=== PATIENT | male | born 1950 | race Caucasian/White ===

== ENCOUNTER 2017-04-16 06:54 | Inpatient (IN) ==
--- NOTE | 2017-04-16 07:16 | Anesthesia Evaluation PreOp ---
Date of Encounter: 04/16/17 Time of Encounter: 07:12 - Past History Planned Operation: Right Fem-Pop Bypass Graft Cardiac History: HTN, Hyperlipidemia, Other (DVT Hx, PVD, PAD) Pulmonary History: Smoker, Pack/yr (2 ppd x 53 years), COPD, Other (Hx PE) RECORD PRESSMAN History: Denies Any Significant HX Other Medical History: GERD, Other (Stopped blood thinners 04/15/2017) Anesthesia History: No Prior Anesthetic Complications, Past Anesthesia ( Multiple Peripheral vascular surgeries) Alcohol Use: none Drug use: none Medications and Allergies Aspirin 325 mg PO DAILY #30 tablet 12/16/15 [Rx] HYDROcodone/Acet 5/325 mg [[place] 5-325 mg] 1 tab PO Q4HR PRN #30 tablet [Rx] Metoprolol [Lopressor] 50 mg PO BID tablet 12/16/15 [Rx] Ciprofloxacin [Cipro] 500 mg PO BID #14 tablet 04/10/17 [Rx] Allergies bee venom protein (honey bee) Allergy (Verified 04/10/17 16:48) Swelling of Lip/Tongue/Throat - Meds/Allergy Pre-op Review Medications Reviewed: Yes Allergies Reviewed: Yes Beta Blockers on Current Med List: Yes If Beta Blockers taken, Date/Time (Last Dose taken): 19:00 04/15/2017 Anesthesia Results - Labs Laboratory Tests 04/10/17 04/10/17 04/10/17 17:47 17:47 17:47 WBC 7.4 Hgb 16.1 Hct 48.4 Plt Count 139 L INR 1.2 Sodium 139 Potassium 4.0 Chloride 101 Carbon Dioxide 30 H BUN 18 Creatinine 0.83 Glucose 111 H - Imaging EKG: image reviewed (SR with occ PVC's) Anesthesia Exam Height: 5'7'' Weight: 196# NPO (# of Hours): > 8 hrs Pain Scale: 0 Pain Scale Used: Numeric (1 - 10) - HEENT Pupil (Motor): Pupils equal, EOMI Mallampati: III Teeth: Poor dentition Oral Opening: Greater than 3 - RECORD PRESSMAN LOC: Oriented RECORD PRESSMAN Motor: Normal RUE, Normal LUE, Normal RLE, Normal LLE, Normal Face RECORD PRESSMAN Sensory: Normal: RUE, LUE, RLE, LLE, Face - Cardiac Rhythm: Regular Murmur: None JVD: No Carotid Bruit: No - Pulmonary Breath Sounds: bilateral Clear Respiratory Effort: Symmetrical Anesthesia Assess/Plan ASA Score: 3 Modified [place] Scale for Level of Consciousness: Cooperative, oriented, and tranquil Anesthetic Plan: General Autologous Blood: Yes Monitoring Plan: Standard Monitors, A-Line Recovery Plan: PACU
[2017-04-16] MEDS ORDERED: *HR* Succinylcholine 200 MG/10 ML VIAL IVP ONE (07:39)
[2017-04-16] MEDS ORDERED: Ondansetron 4 MG/2 ML VIAL ONE (07:39)
[2017-04-16] MEDS ORDERED: Dexamethasone 4 MG/ML VIAL ONE (07:39)
[2017-04-16] MEDS ORDERED: *HR* FentaNYL (PF) 100 MCG/2 ML VIAL ONE (07:39)
[2017-04-16] MEDS ORDERED: *HR* Rocuronium Bromide 50 MG/5 ML VIAL ONE (07:39)
[2017-04-16] MEDS ORDERED: Ketamine *HR* 500 MG/10 ML MDV ONE (07:42)
[2017-04-16] MEDS ORDERED: Lidocaine -MPF 2% 2 ML VIAL ONE ×2 (07:43→12:17)
[2017-04-16] MEDS ORDERED: *HR* Phenylephrine 10 MG/ML VIAL ONE (07:43)
--- NOTE | 2017-04-16 07:49 | History & Physical Report ---
Date of Encounter: 04/16/17 Time of Encounter: 07:30 24 Hour HP Update - Instructions Instructions: If the History and Physical is less than 30 days old and was completed prior to A.M. admission and or procedure and has NOT been updated on calendar day of procedure please complete this update prior to performing procedure. - Update Patient reports changes in Medical Condition: No Changes in examination, assessment, or condition: No Changes in Medication: No Preop tests/diagnostics Reviewed: Yes Surgery Remains Indicated: Yes Consent for Planned Operative Procedure(s) Verified: Yes - Pre-Operative Checklist Preoperative Checklist Indicated: Yes Prophylactic Antibiotic Ordered: Yes (VNACOMYCIN DUE TO MRSA RISK) Home Medications Include Beta Tari: Yes Beta Tari Taken Today (Day of Surgery): Yes Beta Tari Taken Yesterday (Day Prior to Surgery): Yes Is VTE Prophylaxis Indicated?: Yes
[2017-04-16] MEDS ORDERED: Albumin Human 5% 25.0 GM/500 ML VIAL ONE (08:15)
[2017-04-16] MEDS ORDERED: CeFAZolin Pre 2,000 MG/100 ML 2,000 MG/100 ML BAG IVPB ONE (08:16)
[2017-04-16] MEDS ORDERED: Vancomycin 1,250 MG in D5% in Water 250 ML IVPB ONE ×2 (08:16→08:25)
[2017-04-16] MEDS ORDERED: Heparin 1,000 UNITS/500 mL NS 500 ML ONE (08:16)
[2017-04-16] MEDS ORDERED: Albuterol 2.5 MG/3 ML NEBULIZER IH ONE (08:18)
[2017-04-16] MEDS ORDERED: *HR* Etomidate 40 MG/20 ML VIAL IVP ONE (08:19)
[2017-04-16] MEDS ORDERED: Heparin 1,000 UNITS/500 mL NS 1,000 ML ONE (08:26)
[2017-04-16] MEDS ORDERED: Ringers Solution, Lactated 1,000 ML IVC SCH (08:30)
[2017-04-16] MEDS ORDERED: EPHEDrine 50 MG/ML VIAL ONE (08:46)
[2017-04-16] MEDS ORDERED: Lacri-Lube 3.5 GM TUBE ONE (09:20)
[2017-04-16] MEDS ORDERED: *HR* Midazolam HCl 2 MG/2 ML VIAL ONE (09:39)
[2017-04-16] MEDS ORDERED: *HR* Heparin 5,000 UNIT/ML VIAL ONE ×2 (10:17)
[2017-04-16] MEDS ORDERED: *HR* HYDROmorphone (PF) 1 MG/ML SYRINGE IVP PRN (10:33)
[2017-04-16] MEDS ORDERED: *HR* Morphine 2 MG/ML SYRINGE IVP PRN ×2 (10:33→15:35)
[2017-04-16] MEDS ORDERED: Ondansetron 4 MG/2 ML VIAL IVP ONE (10:33)
[2017-04-16] MEDS ORDERED: *HR* Labetalol 20 MG/4 ML SYRINGE IVP PRN ×2 (10:33→15:35)
[2017-04-16] MEDS ORDERED: *HR* Meperidine 25 MG/ML SYRINGE IVP PRN (10:33)
[2017-04-16] MEDS ORDERED: Ipratropium/Albuterol Neb 3 ML IH ONE (10:39)
[2017-04-16] MEDS ORDERED: Neostigmine Methylsulfate 3 MG/3 ML SYRINGE ONE (12:22)
--- NOTE | 2017-04-16 12:50 | Operative Note ---
Date of procedure: 04/16/17 Pre-op diagnosis: Peripheral Vascular Disease with gangrene Post-op diagnosis: same Procedure: 1. Right femoral to below popliteal artery bypass with 6mm PTFE Distaflo graft. 2. Right common femoral and deep femoral artery endarterectomy. Complications: None Anesthesia: AMYA Surgeon: Panchito Ayoub Estimated blood loss (cc): 100 Specimen: None Condition: stable Disposition: PACU Procedure in Detail: Indications: The patient is a 66 year old male with a long history of peripheral vascular disease and a hypercoagulable state. He developed rest pain , then an ulcer and then gangrene of the right foot. He was found to have a severe right lower extremity peripheral vascular disease. Revascularization was recommended to reduce his risk of limb loss. The patient was identified in the preoperative area. The risks, benefits, and alternatives of the procedure were discussed. All questions were answered. The patient was taken to the operating room and placed in supine position on the operating room table. After the induction of general endotracheal anesthesia, he was cleaned and draped in normal sterile fashion. An oblique incision was made over the right groin sharply. Hemostasis was obtained with electrocautery. Through a process of blunt, sharp, and electrocautery dissection, the right femoral vessels were dissected circumferentially and surrounded with vessel loops. An incision was made on the right medial calf sharply. Hemostasis was obtained with electrocautery. Through a process of blunt, sharp, and electrocautery dissection, the left below -knee popliteal artery was dissected proximally and distally and surrounded with vessel loops. A graft was tunneled between the popliteal and femoral incisions. The patient received 5000 units of heparin intravenously. Additional heparin was given throughout the case to maintain adequate anticoagulation. The popliteal vessels were occluded and a longitudinal arteriotomy was made in the popliteal artery. The distal end of the graft was sutured in place with a running 6-0 Prolene, but not tied. Heparinized saline was infused into the lumen. Tension was applied to the femoral vessel loops. An arteriotomy was made in the common femoral artery and extensive plaque wsa noted in the common femoral and deep femoral arteries. The superficial femoral artery was chronically occluded. Upon relaase of the deep femoral artery vessel loop, minimal retrograde flow as noted. An endarterectomy of the common femoral and proximal deep femoral arteries was performed with a dental freer. Endpoints were inspected and no elevated flaps were noted. Significant retrograde flow was noted through the deep femoral artery after the endarterectomy. Pulsatile antegrade flow was noted throught the common femoral artery. The graft was then cut to fit the arteriotomy defect. The graft was anastamosed with a running 6-0 Prolene. The vessels were flushed through the graft and heparin was infused into the lumen. The graft was clamped with an atraumatic clamp. Thrombin and gelfoam were used at the proximal anastamosis. The distal arterial anastomosis suture line was completed. Prior to completing the closure, the popliteal vessels were flushed and reoccluded. Heparinized saline was infused into the lumen. The anastamosis was tied and then flow was restored. Polyphasic signals were noted distal to the distal anastomosis as well as at the posterior tibial artery. Wounds were irrigated with antibiotic-containing saline. Thrombin and gelfoam were used to aid in hemostasis. Platelet rich and platelet poor plasma were infused into the wounds. Meticulous hemostasis was obtained throughout the wound with electrocautery. Wounds were reapproximated with layers of 2-0 and 3-0 Vicryl. Skin was reapproximated with 3-0 Monocryl. Sterile dressing was applied. The patient was extubated and taken to recovery room in stable condition.
[2017-04-16] MEDS ORDERED: Naloxone 0.4 MG/ML INJ ONE (14:47)
--- NOTE | 2017-04-16 15:11 | Anesthesia Evaluation Post Op ---
Date of Encounter: 04/16/17 Time of Encounter: 15:10 - Vital Signs Vital Signs: Vital Signs/O2 Sat, Most Current Temp Pulse Resp BP Pulse Ox 97.8 F 93 14 110/61 94 04/16/17 14:27 04/16/17 14:27 04/16/17 14:27 04/16/17 14:27 04/16/17 14:27 - Lungs Lungs: Clear Ascult./Percussion - Airway Airway: Non-obstructed - Cardiovascular Regular Rate - Mental Status Mental Status: Alert & Oriented, Answers Appropriately - Pain Pain Scale: 5 Pain Scale used: Numeric (1 - 10) - Nausea Vomiting Nausea Vomiting: Not Present - Hydration Hydration: NPO, Nettles catheter - Discharge PostOp Status: Transfer Patient to floor
[2017-04-16] MEDS ORDERED: Naloxone 0.4 MG/ML INJ IVP PRN (15:35)
[2017-04-16] MEDS ORDERED: Ondansetron 4 MG/2 ML VIAL IVP PRN (15:35)
[2017-04-16] MEDS ORDERED: *HR* OxyCODONE Immed Rel 5 MG TABLET PO PRN (15:35)
[2017-04-16] MEDS ORDERED: ceFAZolin 2,000 MG in D5% in Water 100 ML IVPB SCH (15:35)
[2017-04-16] MEDS ORDERED: Ipratropium/Albuterol Neb 3 ML IH PRN (15:35)
[2017-04-16] MEDS ORDERED: Acetaminophen 325 MG TABLET PO PRN (15:35)
[2017-04-16] MEDS ORDERED: NON-FORMULARY MEDICATION 1 EACH EACH (Ipratropium/Albuterol Sulfate [Combivent Respimat In IH PRN (15:35)
[2017-04-16] MEDS ORDERED: *HR* HYDROcodone/Acet 5/325 mg TABLET PO PRN (15:35)
[2017-04-16] MEDS ORDERED: Melatonin 3 MG TABLET PO PRN (15:35)
[2017-04-16] MEDS ORDERED: 0.9 % Sodium Chloride 1,000 ML IVC SCH (15:35)
[2017-04-16] MEDS ORDERED: *HR* Morphine 2 MG/ML SYRINGE ONE (15:41)
[2017-04-16] MEDS: *HR* Metoprolol 5 MG/5 ML VIAL IVP SCH ×2 (17:22→23:30)
[2017-04-16] MEDS: ceFAZolin 2,000 MG in D5% in Water 100 ML IVPB SCH ×2 (17:22→23:30)
[2017-04-16] MEDS: *HR* Enoxaparin 80 MG/0.8 ML SYRINGE SQ SCH (17:22)
[2017-04-16] MEDS ORDERED: *HR* Heparin 5,000 UNIT/ML VIAL SQ SCH (18:00)
[2017-04-16] MEDS ORDERED: Vancomycin 1,500 MG in D5% in Water 250 ML IVPB ONE (19:00)
[2017-04-16] MEDS: Budesonide/Formoterol 160/4.5 MDI IH SCH (19:55)
[2017-04-16] MEDS ORDERED: Lisinopril 20 MG TABLET PO SCH (21:00)
[2017-04-16] MEDS ORDERED: Aspirin Enteric Coated 81 MG Tablet PO SCH (21:00)
[2017-04-16] MEDS ORDERED: hydroCHLOROthiazide 25 MG TABLET PO SCH (21:00)
[2017-04-17 04:32] LABS: Basophils % 0.2 %; Eosinophils % 0.2 %; Hematocrit 43.5 % (37.5-50.1); Immature Granulocytes % 0.8 % (0-4); Lymphocytes # 1.6 K/mcL (0.6-4.6); Lymphocytes % 13.2 %; Mean Corpuscular HGB Conc 33.1 g/dL (31.6-35.5); Mean Corpuscular Hemoglobin 31.9 pg (28.0-33.3); Mean Corpuscular Volume 96.2 fL (83.0-100.0); Mean Platelet Volume 9.2 fL (9.4-12.4); Monocytes % 8.6 %; Neutrophils # 9.4 K/mcL (1.6-8.9); Platelet Count 139 K/mcL (140-400); Red Blood Count 4.52 M/mcL (4.19-5.50); Red Cell Distribution Width 15.1 % (11.5-14.5)
[2017-04-17 04:35] LABS: Hemoglobin 14.4 g/dL (12.9-16.9); Monocytes # 1.1 K/mcL (0.0-1.3)
[2017-04-17 04:44] LABS: BUN/Creatinine Ratio 25 (6-26); Blood Urea Nitrogen 21 mg/dL (8-26); Calcium 8.2 mg/dL (8.6-10.8); Carbon Dioxide 34 mEq/L (19-29); Chloride 99 mEq/L (98-109); Glucose 94 mg/dL (70-99); Osmolality,Calculated 287 (280-300); Potassium 4.4 mEq/L (3.5-4.5); Sodium 137 mEq/L (136-145); eGFR For African Americans > 60 (> 60); eGFR For Non-African Americans > 60 (> 60)
[2017-04-17] MEDS: *HR* Enoxaparin 80 MG/0.8 ML SYRINGE SQ SCH (06:23)
[2017-04-17] MEDS: *HR* Metoprolol 5 MG/5 ML VIAL IVP SCH (06:23)
[2017-04-17 07:14] VITALS: BP 103/60
--- NOTE | 2017-04-17 07:19 | Discharge Summary ---
Date of Encounter: 04/17/17 Time of Encounter: 07:40 - Discharge Diagnosis (1) Atherosclerosis of [place] arteries of extremities with gangrene, right leg Priority: Primary Status: Chronic Comments: The patient is postoperative day #1 after a right femoral endarterectomy and right femoral to popliteal artery bypass. Priscilla has polyphasic pedal signals and his foot is warm. He will be discharged today. 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 (4) Hyperlipemia Priority: Secondary Status: Chronic (5) Foot ulcer, right Priority: Secondary Status: Inactive (6) Essential hypertension Priority: Secondary Status: Chronic Comments: He was counseled regarding atherosclerotic risk factor reduction. - Discharge Medications Prescriptions: OxyCODONE/APAP 5/325 [Percocet 5/325 MG] 1 each PO Q4HR PRN #30 tablet PRN Reason: postoperative pain Home Medications: Aspirin [Lo-Dose Aspirin EC] 81 mg PO HS 04/16/17 [History] Budesonide/Formoterol 160/4.5 [Symbicort 160/4.5] 2 puff IH BIDR 04/16/17 [ History] Carvedilol [Coreg] 6.25 mg PO BID 04/16/17 [History] Enoxaparin [Lovenox] 80 mg SQ Q12H 04/16/17 [History] Ipratropium/Albuterol Neb [Duoneb] 3 ml IH Q6HR PRN 04/16/17 [History] Ipratropium/Albuterol Sulfate [Combivent Respimat Inhal [place]] 2 puff IH Q6H PRN 04/16/17 [History] Lisinopril [Zestril] 40 mg PO HS 04/16/17 [History] Melatonin 3 mg PO HS PRN 04/16/17 [History] Omeprazole [PriLOSEC] 20 mg PO HS 04/16/17 [History] Simvastatin [Zocor] 40 mg PO HS 04/16/17 [History] hydroCHLOROthiazide [Hydrochlorothiazide] 25 mg PO HS 04/16/17 [History] OxyCODONE/APAP 5/325 [Percocet 5/325 MG] 1 each PO Q4HR PRN #30 tablet 04/17/17 [Rx] Allergies/Adverse Reactions: Allergies bee venom protein (honey bee) Allergy (Verified 04/16/17 07:30) Swelling of Lip/Tongue/Throat Date of admission: 04/16/17 15:24 Primary care physician: PCP DEMI Procedure(s) Performed: Right femoral to popliteal artery bypass. Discharging clinician: Panchito Ayoub Anticipated date of discharge: 04/17/17 - Patient Status Disposition: Home, Self-Care Condition: Good Functional capacity at discharge: independent ambulation Overall status at discharge: patient is back to baseline - Discharge Instructions Instructions: Oxycodone/Acetaminophen (By mouth), Peripheral Vascular Disorders (DC) Follow Up With: Panchito Ayoub MD [Partnered Physician] - 05/28/17 1:00 pm [facility],PCP [Primary Care Provider] - 04/21/17 2:15 pm Additional Instructions: MAY REMOVE BANDAGE AND SHOWER ON 04/18/17. WASH WOUND GENTLY AND PAT TO DRY. APPLY DRY BANDAGE DAILY FOR 7 DAYS. NO TUB BATHS OR SWIMMING UNTIL 05/13/17. CALL DR. AYOUB AT [phone] WITH QUESTIONS OR CONCERNS. - Diet and Activity Activity: increase activity as tolerated Diet: advance to your usual diet - Hospital Course Hospital course: Mr. Sultana is a 66 year old male with a nonhealing right foot ulcer with gangrenous changes. He was admitted on 04/16/17 and underwent a right femoral endarterectomy and right femoral to popliteal artery bypass. On postoperative day #1 he was hemodynamically stable, his wounds were healing, he had polyphasic pedal signals and his rest pain had resolved. He was discharged on postoperative day #1 without complication. Time spent discussing smoking cessation with patient: 3 to 10 minutes - Time Spent with Patient Total time spent providing and/or coordinating discharge services: Exam Vital Signs, Last 4 Hours Temp Pulse Resp BP Pulse Ox 04/17/17 04:14 97.6 F 86 15 113/62 97 General: Present: Conversant, No Apparent Distress Cardiac: Present: Reg Rate and Rhythm Lungs: Present: Normal Breath Sounds Neuro: Present: Alert and responsive, No focal deficits noted, Motor nerves grossly intact, Sensory nerves grossly intact Abdomen: Present: Soft Vascular: Present: Normal capillary refill, Pulse, normal, Edema, Surgical incisions (no hematoma, no erythema, no drainage). Absent: Cyanosis Skin: Present: Wound/ulcer(s) (right foot ulcers without erythema or drainage) - VTE Documentation of Mechanical Device: Intermittent pneumatic compression device
[2017-04-17] MEDS: Budesonide/Formoterol 160/4.5 MDI IH SCH (07:48)
== END 2017-04-17 09:15 | disposition home or self-care (01) | DRG 254 ==
LOC: SAMDAY 06:54 → 2NNU 15:24
PROVIDERS: ADMIT Surgery; ATTEND Surgery

== ENCOUNTER 2017-05-15 13:51 | Inpatient (IN) ==
[2017-05-15] MEDS ORDERED: *HR* Morphine 2 MG/ML SYRINGE IVP ONE (14:19)
--- NOTE | 2017-05-15 14:33 | Emergency Department Note ---
Disposition Clinical Impression: Limb ischemia, Peripheral vascular disease Disposition: Admitted As Inpatient Condition: Good Time of Disposition: 16:00 Extremity Problem HPI - General Chief complaint: ED Extremity Problem,Nontraumatic Stated complaint: Foot LLE Cold/N/T Time Seen by Provider: 05/15/17 14:01 Source: patient Limitations: no limitations Nursing Notes Reviewed: Yes Vital Signs Reviewed: Yes - History of Present Illness HPI Narrative: 66-year-old male history of peripheral vascular disease with multiple graphs to his left lower leg presents with a cold extremity. Reports pain and coldness to the left leg starting 8 AM this morning. He has had multiple grafta and stents placed in his left lower leg, up to 7 he reports. He recently had surgery on his right leg and recently had a follow-up appointment with Dr. Mcdowell are 2 days ago. Reportedly at that time they were not able to find a pulse on his left lower leg. He has been taken aspirin as well as Lovenox twice a day injection. Patient reports Dr. Mcdowell her has stated this becomes a issues he may require amputation. We are unable to palpate or auscultated a peripheral pulse in his left lower leg with the Doppler. ABG stat ordered. Pt Subjective Complaint: extremity pain, cold extremity Pain Scale: 7 - Related Data Home Medications Medication Instructions Recorded Confirmed Aspirin [Lo-Dose Aspirin EC] 81 mg PO HS 04/16/17 05/15/17 Budesonide/Formoterol 160/4.5 2 puff IH BIDR 04/16/17 05/15/17 [Symbicort 160/4.5] Carvedilol [Coreg] 6.25 mg PO BID 04/16/17 05/15/17 Enoxaparin [Lovenox] 80 mg SQ Q12H 04/16/17 05/15/17 Ipratropium/Albuterol Neb [Duoneb] 3 ml IH Q6HR PRN 04/16/17 05/15/17 Ipratropium/Albuterol Sulfate 2 puff IH Q6H PRN 04/16/17 05/15/17 [Combivent Respimat Inhal [place]] Lisinopril [Zestril] 40 mg PO HS 04/16/17 05/15/17 Melatonin 3 mg PO HS PRN 04/16/17 05/15/17 Omeprazole [PriLOSEC] 20 mg PO HS 04/16/17 05/15/17 Simvastatin [Zocor] 40 mg PO HS 04/16/17 05/15/17 hydroCHLOROthiazide 25 mg PO HS 04/16/17 05/15/17 [Hydrochlorothiazide] Allergies Allergy/AdvReac Type Severity Reaction Status Date / Time bee venom protein (honey bee) Allergy Swelling Verified 04/16/17 07:30 of Lip/Tongue/Throat All systems ED: reviewed and negative except as stated. Review of Systems: As Per HPI Constitutional: Denies: fever, chills Cardiovascular: Denies: chest pain Respiratory: Denies: cough, dyspnea Gastrointestinal: Denies: abdominal pain, nausea, vomiting Musculoskeletal: Reports: myalgia. Denies: joint swelling Integumentary: Reports: lesions. Denies: pruritus Past Medical History - Past Medical History Medical history: Reports: COPD, DVT, hyperlipidemia, hypertension, peripheral artery disease Surgical history: Reports: vascular surgery Psychiatric history: Reports: no psych history - Social History Smoking Status: Current every day smoker Smokeless Tobacco Status: No Alcohol use: Reports: none Drug use: Reports: none Physical Exam - General Limitations: no limitations General appearance: alert, in no apparent distress - Head Head exam: atraumatic, normocephalic, normal inspection - Eye Eye exam: Present: normal appearance, EOMI - ENT ENT exam: normal exam, normal oropharynx - Neck Neck exam: Present: normal inspection - Chest Chest inspection: Present: normal inspection, symmetric chest wall rise. Absent : tenderness - Respiratory Respiratory exam: Present: normal lung sounds bilaterally. Absent: respiratory distress, wheezes - Cardiovascular Cardiovascular exam: Present: regular rate, normal rhythm, normal heart sounds - Expanded Lower Extremity Exam 1 - wound with good granulation 2 - Graft with well healing scar 3 - Old incisional scar from prior graft no erythema 4 - Old incisional grafts, no erythema Neurovascular/Tendon exam: Present: pulse deficit (no palpable pulse on LLE, unable to obtain with doppler), extremity cold to touch (left), pallor. Absent : motor deficit, sensory deficit - Skin Skin exam: Present: cyanosis, other (Left lower extremity is dusky, cold to the touch up to the mid-conte) Course - Reevaluation(s) Reevaluation #1: Km Sultana Male : 1950 [facility]# [id number] 05/15/17 14:56 - Vascular Preliminary by Aida Lopez [facility] Num: [id number] : 1950 Patient Age: 66 ORA completed. Right ORA is 0.51. No palpable pulses on the left side. Results reported to Dr Aleman at 14:55 on 05-15-17. Initialized on 05/15/17 14:56 - END OF NOTE Time: 15:11 - Consultations Consultation #1: Spoke with Dr. Ayoub, currently in a case but will come evaluate the patient. Aware that patient symptoms have been ongoing since 8 AM this morning. Time: 15:17 Consultation #2: Dr. Ayoub at bedside evaluating patient. Recommends to place on Heparin drip and get CT aorta runoff. Limb is still viable and this is an urgent case. No other orders at this time. Time: 16:00 Vital Signs Temperature 98.2 F 05/15/17 13:53 Pulse Rate 100 05/15/17 13:53 Respiratory Rate 18 05/15/17 13:53 Blood Pressure 134/64 05/15/17 13:53 O2 Sat by Pulse Oximetry 88 05/15/17 13:53 Temperature 97.9 F 05/15/17 21:17 Pulse Rate 88 05/15/17 21:17 Respiratory Rate 14 05/15/17 21:17 Blood Pressure 151/80 05/15/17 21:17 O2 Sat by Pulse Oximetry 95 05/15/17 21:17 Oxygen Delivery Oxygen Delivery Room Air Extremity Problem, Nontraumati - Medical Records Medical records reviewed: Yes I reviewed the patient's medical records. - Lab Data Lab results reviewed: Yes I reviewed the patient's lab results. Result diagrams: 05/15/17 17:23 05/15/17 15:32 Lab Results 05/15/17 05/15/17 05/15/17 Range/Units 15:32 15:32 15:32 WBC 7.0 (4.3-11.1) K/mcL RBC 4.72 (4.19-5.50) M/mcL Hgb 14.8 (12.9-16.9) g/dL Hct 45.2 (37.5-50.1) % MCV 95.8 (83.0-100.0) fL MCH 31.4 (28.0-33.3) pg MCHC 32.7 (31.6-35.5) g/dL RDW 15.7 H (11.5-14.5) % Plt Count 147 (140-400) K/mcL MPV 8.7 L (9.4-12.4) fL Immature Gran % 0.4 (0-4) % Seg Neutrophils % 69.0 % Lymphocytes % 19.4 % Monocytes % 7.2 % Eosinophils % 3.3 % Basophils % 0.7 % Neutrophils # 4.8 (1.6-8.9) K/mcL Lymphocytes # 1.4 (0.6-4.6) K/mcL Monocytes # 0.5 (0.0-1.3) K/mcL Eosinophils # 0.2 (0.0-0.6) K/mcL Basophils # 0.1 (0.0-0.2) K/mcL PT 11.3 (9.4-12.1) Seconds INR 1.1 APTT 30.3 (26.0-36.0) Seconds Sodium 136 (136-145) mEq/L Potassium 4.0 (3.5-4.5) mEq/L Chloride 99 (98-109) mEq/L Carbon Dioxide 28 (19-29) mEq/L BUN 19 (8-26) mg/dL Creatinine 0.78 (0.72-1.25) mg/dL Est GFR ( Amer) > 60 (> 60) Est GFR (Non-Af Amer) > 60 (> 60) BUN/Creatinine Ratio 24 (6-26) Glucose 115 H (70-99) mg/dL Calculated Osmolality 285 (280-300) Calcium 8.9 (8.6-10.8) mg/dL - Radiology Data Radiology results reviewed: Yes I reviewed the patient's radiology results. Km Sultana Frank Male : 1950 [facility]# [id number] 05/15/17 14:56 - Vascular Preliminary by Aida Lopez [facility] Num: [id number] : 1950 Patient Age: 66 ORA completed. Right ORA is 0.51. No palpable pulses on the left side. Results reported to Dr Aleman at 14:55 on 05-15-17. Initialized on 05/15/17 14:56 - END OF NOTE Aorta w/Runoff CTA 05/15/17 16:01 IMPRESSION: 1. Compared to the prior study, there is now total occlusion beginning at the level of the left distal common femoral artery/superficial artery, which includes the femoral artery to popliteal artery bypass graft and profunda arteries. There is faint reconstitution of flow identified within the distal popliteal artery with faint contrast opacifying the anterior tibial artery. The peroneal and posterior tibial arteries are not well opacified. 2. Interval creation of a right superficial femoral artery to popliteal artery bypass graft, which is widely patent. There appears to be a patent triple-vessel [id number] runoff system. 3. Rxcltyhm-ye-omzhea atherosclerotic disease of the aortoiliac system as above. No significant flow limiting stenosis identified in the aorta. There appears to be multifocal areas of approximately 50% stenosis in the right common iliac and external iliac arteries. There are tandem areas of less than 50% stenosis in the left common iliac/external iliac artery system. The findings were sent to the Radiology Results Communication Center at 5:08 pm on 05/15/2017to be communicated to a licensed caregiver. D/ / 05/15/2017 17:47:23 Anton Vargas MD / [email or web address] Interpreting Provider: Anton Vargas MD - EKG Data EKG attestation: Yes I reviewed and interpreted this EKG. EKG results narrative: EKG performed 1512 sinus tachycardia 10 1 bpm, no ST elevations or depression, no T wave inversion intervals are within normal limits. Compared to old EKG performed 12/13/2015 shows sinus rhythm with PVC otherwise consistent findings. No acute ischemic changes. Attestation Statement - Attestation Attestation: I, Rodriguez Leal, examined this patient and my medical decision-making was reviewed with the ROTARY DRUM DYER/PA/Advanced Practice Nurse/Resident Physician. I agree with the documented findings, disposition and treatment plan as described except to the extent set forth below. 66-year-old male presents with concerns of left lower extremity pain and coldness. Patient states symptoms started about 70 hours prior to arrival to the emergency department. He has a long history of peripheral arterial disease and has required multiple surgeries of the bilateral lower extremities. Patient denies fever, chills, nausea, vomiting, diarrhea, chest pain, diarrhea, recent injury to the left lower extremity. Patient was examined immediately upon arrival to the emergency department. He does not have a palpable pulse in the dorsalis pedis or posterior tibial areas. Ankle brachial index was performed and the resident spoke with Dr. Ayoub who evaluated the patient in the emergency department, agreed to take him onto his service and requested heparin drip. Patient was started on this medication and was admitted to the hospital for further care and evaluation.
[2017-05-15 15:39] LABS: Basophils # 0.1 K/mcL (0.0-0.2); Basophils % 0.7 %; Eosinophils # 0.2 K/mcL (0.0-0.6); Eosinophils % 3.3 %; Hematocrit 45.2 % (37.5-50.1); Hemoglobin 14.8 g/dL (12.9-16.9); Immature Granulocytes % 0.4 % (0-4); Lymphocytes # 1.4 K/mcL (0.6-4.6); Lymphocytes % 19.4 %; Mean Corpuscular HGB Conc 32.7 g/dL (31.6-35.5); Mean Corpuscular Hemoglobin 31.4 pg (28.0-33.3); Mean Corpuscular Volume 95.8 fL (83.0-100.0); Mean Platelet Volume 8.7 fL (9.4-12.4); Monocytes # 0.5 K/mcL (0.0-1.3); Monocytes % 7.2 %; Neutrophils # 4.8 K/mcL (1.6-8.9); Platelet Count 147 K/mcL (140-400); Red Blood Count 4.72 M/mcL (4.19-5.50); Red Cell Distribution Width 15.7 % (11.5-14.5)
[2017-05-15 15:44] LABS: INR 1.1; Prothrombin Time 11.3 Seconds (9.4-12.1)
[2017-05-15 15:47] LABS: Activated Partial Thrombo Time 30.3 Seconds (26.0-36.0)
[2017-05-15 15:52] LABS: BUN/Creatinine Ratio 24 (6-26); Blood Urea Nitrogen 19 mg/dL (8-26); Calcium 8.9 mg/dL (8.6-10.8); Carbon Dioxide 28 mEq/L (19-29); Chloride 99 mEq/L (98-109); Glucose 115 mg/dL (70-99); Osmolality,Calculated 285 (280-300); Sodium 136 mEq/L (136-145); eGFR For African Americans > 60 (> 60); eGFR For Non-African Americans > 60 (> 60)
[2017-05-15] MEDS ORDERED: Heparin 25,000 UNIT/500 ML D5W 25,000 UNIT/500 ML MLS IVC SCH ×2 (16:15→17:00)
[2017-05-15] MEDS ORDERED: *HR* Heparin 5,000 UNIT/ML VIAL IVP PRN ×2 (16:50)
[2017-05-15] MEDS ORDERED: Acetaminophen 325 MG TABLET PO PRN (16:50)
[2017-05-15] MEDS ORDERED: *HR* HYDROcodone/Acet 5/325 mg TABLET PO PRN (16:50)
[2017-05-15] MEDS ORDERED: Naloxone 0.4 MG/ML INJ IVP PRN (16:50)
[2017-05-15] MEDS ORDERED: *HR* Labetalol 20 MG/4 ML SYRINGE IVP PRN (16:50)
[2017-05-15] MEDS ORDERED: *HR* Heparin 5,000 UNIT/ML VIAL IVP ONE (16:50)
[2017-05-15] MEDS ORDERED: Ondansetron 4 MG/2 ML VIAL IVP PRN (16:50)
[2017-05-15] MEDS ORDERED: *HR* Morphine 2 MG/ML SYRINGE IVP PRN (16:50)
[2017-05-15] MEDS ORDERED: *HR* OxyCODONE Immed Rel 5 MG TABLET PO PRN (16:50)
--- NOTE | 2017-05-15 17:16 | Vascular/Endovascular H&P ---
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 His motor and sensory function are present. His compartments are soft. He will be admitted. He will be started on intravenous anticoagulation. He will get a CT scan. he will require revascularization on this admission to reduce his risk of limb loss. He was informed that amputation may be necessary if he cannot be revascularized. He expressed understanding. (2) COPD (chronic obstructive pulmonary disease) Current Visit: Yes Status: Chronic Qualifiers: COPD type: emphysema Emphysema type: panlobular Qualified Code(s): J43.1 - Panlobular emphysema (3) Tobacco abuse Current Visit: Yes Status: Chronic He was counseled regarding smoking cessation. (4) Essential hypertension Current Visit: Yes Status: Chronic He was counseled regarding atherosclerotic risk factor reduction. (5) Hypercoagulable state Current Visit: Yes Status: Acute The patient is chronically on lovenox. He will be switced to a heparin drip. History of Present Illness Chief complaint: left left ischemia HPI: Mr. Sultana is a 66 year old male with a longstanding history of peripheral vascular disease, hypertension, hyperlipidemia and tobacco abuse. He also has a hypercoagulable state and is chronically on lovenox. The patient has previously undergone bilateral lower extremity bypass procedures. He presented today with acute onset progression of his left lower extremity ischemia. The patient has chronic left lower extremity pain, but states that it got worse this morning. He came to the ER for further evaluation. He was found to have a left ORA of 0.0. Vascular surgery was consulted for further evaluation. The patient reports that he can move and feel his right foot. He reports that he is unable to bear weight on his left leg or ambulate any significant distance due to his discomfort. He denies chest pain or shortness of breath. Past Med Surg Social Fam HX - Past Medical History Medical history: COPD, DVT, hyperlipidemia, hypertension, peripheral artery disease Psychiatric history: no psych history - Past Surgical History Surgical History: vascular surgery - Social History Smoking Status: Current every day smoker Smokeless Tobacco Status: No Alcohol use: none Drug use: none - Family History Father Family Member Ethnicity: Non- Living Status: Hx Family Cancer: Yes Medications and Allergies Aspirin [Lo-Dose Aspirin EC] 81 mg PO HS 04/16/17 [History] Budesonide/Formoterol 160/4.5 [Symbicort 160/4.5] 2 puff IH BIDR 04/16/17 [ History] Carvedilol [Coreg] 6.25 mg PO BID 04/16/17 [History] Enoxaparin [Lovenox] 80 mg SQ Q12H 04/16/17 [History] Ipratropium/Albuterol Neb [Duoneb] 3 ml IH Q6HR PRN 04/16/17 [History] Ipratropium/Albuterol Sulfate [Combivent Respimat Inhal [place]] 2 puff IH Q6H PRN 04/16/17 [History] Lisinopril [Zestril] 40 mg PO HS 04/16/17 [History] Melatonin 3 mg PO HS PRN 04/16/17 [History] Omeprazole [PriLOSEC] 20 mg PO HS 04/16/17 [History] Simvastatin [Zocor] 40 mg PO HS 04/16/17 [History] hydroCHLOROthiazide [Hydrochlorothiazide] 25 mg PO HS 04/16/17 [History] 3 Allergy/AdvReac Type Severity Reaction Status Date / Time bee venom protein (honey bee) Allergy Swelling Verified 04/16/17 07:30 of Lip/Tongue/Throat All Systems Review: A 10-system review of systems was performed and is negative for pertinent findings except as documented above in the HPI. - Cardiovascular Cardiovascular: no chest pain at rest, no chest pain with exertion, no dyspnea at rest, no dyspnea on exertion Exam Vital Signs, Last 4 Hours Resp BP 05/15/17 17:02 16 121/72 General: Present: Conversant, No Apparent Distress HEENT: Present: Atraumatic Neck: Absent: JVD, Lymphadenopathy Cardiac: Present: Reg Rate and Rhythm, Normal S1 and S2 Lungs: Present: Normal Breath Sounds, No Wheeze, Rales, Rhonchi Neuro: Present: Motor nerves grossly intact, Sensory nerves grossly intact Abdomen: Present: Soft, Non-tender. Absent: Masses Vascular: Present: Pulse, absent (left pedal pulses), Surgical incisions (right groin incision without erythema or drainage). Absent: Cyanosis, Edema Skin: Present: No rashes noted on visualized skin Results 05/16/17 04:51 05/16/17 04:51 - Imaging / Other Tests Non Invasive Vascular Testing: report reviewed, image reviewed CT/CTA: pending
[2017-05-15 17:35] LABS: INR 1.1; Prothrombin Time 11.7 Seconds (9.4-12.1)
[2017-05-15 17:38] LABS: Activated Partial Thrombo Time 34.2 Seconds (26.0-36.0)
[2017-05-15 17:58] LABS: Hematocrit 46.4 % (37.5-50.1); Hemoglobin 14.9 g/dL (12.9-16.9); Mean Corpuscular HGB Conc 32.1 g/dL (31.6-35.5); Mean Corpuscular Hemoglobin 31.1 pg (28.0-33.3); Mean Corpuscular Volume 96.9 fL (83.0-100.0); Mean Platelet Volume 8.9 fL (9.4-12.4); Platelet Count 157 K/mcL (140-400); Red Blood Count 4.79 M/mcL (4.19-5.50); Red Cell Distribution Width 15.7 % (11.5-14.5)
[2017-05-15] MEDS: 0.9 % Sodium Chloride 1,000 ML IVC SCH (18:08)
[2017-05-15] MEDS: Budesonide/Formoterol 160/4.5 MDI IH SCH (20:20)
[2017-05-15] MEDS: Ipratropium/Albuterol Neb 3 ML IH PRN (20:20)
[2017-05-15] MEDS ORDERED: Aspirin Enteric Coated 81 MG Tablet PO SCH (21:00)
[2017-05-15] MEDS ORDERED: hydroCHLOROthiazide 25 MG TABLET PO SCH (21:00)
[2017-05-15] MEDS ORDERED: Lisinopril 20 MG TABLET PO SCH (21:00)
[2017-05-15] MEDS ORDERED: Melatonin 3 MG TABLET PO PRN (21:00)
--- NOTE | 2017-05-15 21:27 | Anesthesia Evaluation PreOp ---
Date of Encounter: 05/15/17 Time of Encounter: 21:24 - Past History Planned Operation: LLE Thrombectomy Cardiac History: HTN (maintained on Hctz, Lisinopril, Caredilol,), Hyperlipidemia (maintained on Simvastatin), Other (Daily ASA) Pulmonary History: Smoker (2ppd x 50yrs. "Quitting today"), COPD (maintained on Symbicort, DuoNebs, Combivent. 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: Denies Any Significant HX Other Medical History: Bleeding (Hx of DVT), GERD (maintained on Omeprazole) Alcohol Use: none Drug use: none Medications and Allergies Aspirin [Lo-Dose Aspirin EC] 81 mg PO HS 04/16/17 [History] Budesonide/Formoterol 160/4.5 [Symbicort 160/4.5] 2 puff IH BIDR 04/16/17 [ History] Carvedilol [Coreg] 6.25 mg PO BID 04/16/17 [History] Enoxaparin [Lovenox] 80 mg SQ Q12H 04/16/17 [History] Ipratropium/Albuterol Neb [Duoneb] 3 ml IH Q6HR PRN 04/16/17 [History] Ipratropium/Albuterol Sulfate [Combivent Respimat Inhal [place]] 2 puff IH Q6H PRN 04/16/17 [History] Lisinopril [Zestril] 40 mg PO HS 04/16/17 [History] Melatonin 3 mg PO HS PRN 04/16/17 [History] Omeprazole [PriLOSEC] 20 mg PO HS 04/16/17 [History] Simvastatin [Zocor] 40 mg PO HS 04/16/17 [History] hydroCHLOROthiazide [Hydrochlorothiazide] 25 mg PO HS 04/16/17 [History] 3 Allergy/AdvReac Type Severity Reaction Status Date / Time bee venom protein (honey bee) Allergy Swelling Verified 04/16/17 07:30 of Lip/Tongue/Throat - Meds/Allergy Pre-op Review Medications Reviewed: Yes Allergies Reviewed: Yes Beta Blockers on Current Med List: No Anesthesia Results - Labs 05/15/17 17:23 05/15/17 15:32 Laboratory Tests 05/15/17 05/15/17 15:32 17:23 PT 11.7 INR 1.1 APTT 34.2 Est GFR (Non-Af Amer) > 60 Glucose 115 H Laboratory Results Impressions Aorta w/Runoff CTA 05/15/17 16:01 IMPRESSION: 1. Compared to the prior study, there is now total occlusion beginning at the level of the left distal common femoral artery/superficial artery, which includes the femoral artery to popliteal artery bypass graft and profunda arteries. There is faint reconstitution of flow identified within the distal popliteal artery with faint contrast opacifying the anterior tibial artery. The peroneal and posterior tibial arteries are not well opacified. 2. Interval creation of a right superficial femoral artery to popliteal artery bypass graft, which is widely patent. There appears to be a patent triple-vessel [id number] runoff system. 3. Apweplrk-vt-pzxorg atherosclerotic disease of the aortoiliac system as above. No significant flow limiting stenosis identified in the aorta. There appears to be multifocal areas of approximately 50% stenosis in the right common iliac and external iliac arteries. There are tandem areas of less than 50% stenosis in the left common iliac/external iliac artery system. The findings were sent to the Radiology Results Communication Center at 5:08 pm on 05/15/2017to be communicated to a licensed caregiver. D/ / 05/15/2017 17:47:23 Anton Vargas MD / [facility] Inter[facility] Provider: Anton Vargas MD Anesthesia Exam Vital Signs Temp Pulse Resp BP Pulse Ox 05/15/17 21:17 97.9 F 88 14 151/80 95 05/15/17 20:20 18 96 05/15/17 17:02 16 121/72 05/15/17 16:50 98.5 F 81 18 173/94 93 05/15/17 15:35 96 22 119/76 92 05/15/17 13:53 98.2 F 100 18 134/64 88 Intake and Output 05/15/17 05/15/17 05/15/17 07:59 15:59 23:59 Intake Total 120 / 120 Output Total 0 / 0 Balance 120 / 120 Intake: Oral 120 / 120 Output: Urine 0 / 0 Other: Meal Dinner Percent of Meal Consumed 75% Weight 90.265 kg Patient Weight 05/15/17 23:59 Weight 90.265 kg - HEENT Pupil (Motor): Pupils equal, EOMI Mallampati: II Teeth: Edentulous (upper), Poor dentition Oral Opening: Greater than 3 - SIGNAL WORKER HELPER LOC: Oriented SIGNAL WORKER HELPER Motor: Normal RUE, Normal LUE, Normal RLE, Normal LLE, Normal Face SIGNAL WORKER HELPER Sensory: Normal: RUE, LUE, RLE, LLE, Face - Cardiac Rhythm: Regular Murmur: None - Pulmonary Breath Sounds: bilateral Clear Respiratory Effort: Symmetrical Anesthesia Assess/Plan ASA Score: 3 (HTN, Chol, Smoker, COPD, PVDz) Modified [place] Scale for Level of Consciousness: Cooperative, oriented, and tranquil Anesthetic Plan: General Monitoring Plan: Standard Monitors Recovery Plan: PACU Anes Supervising Prov Stmt: Pt seen/evaluated ,R&B Discussed, questions answered and consent obtained. Tonia Dean MD
[2017-05-15] MEDS ORDERED: Ipratropium/Albuterol Neb 3 ML IH PRN (22:00)
[2017-05-15 23:03] LABS: Activated Partial Thrombo Time 232.4 Seconds (26.0-36.0)
[2017-05-15 23:22] LABS: Heparin anti-factor XA UFH 1.26 IU/mL (0.30-0.70)
[2017-05-16 05:02] LABS: Basophils # 0.1 K/mcL (0.0-0.2); Basophils % 0.8 %; Eosinophils # 0.2 K/mcL (0.0-0.6); Eosinophils % 3.8 %; Hematocrit 43.5 % (37.5-50.1); Hemoglobin 13.9 g/dL (12.9-16.9); Immature Granulocytes % 0.5 % (0-4); Lymphocytes # 1.2 K/mcL (0.6-4.6); Lymphocytes % 19.1 %; Mean Corpuscular Hemoglobin 30.7 pg (28.0-33.3); Mean Platelet Volume 9.2 fL (9.4-12.4); Monocytes # 0.6 K/mcL (0.0-1.3); Monocytes % 8.6 %; Neutrophils # 4.3 K/mcL (1.6-8.9); Platelet Count 130 K/mcL (140-400); Red Blood Count 4.53 M/mcL (4.19-5.50); Red Cell Distribution Width 15.4 % (11.5-14.5); Segmented Neutrophils % 67.2 %
[2017-05-16 05:18] LABS: BUN/Creatinine Ratio 17 (6-26); Blood Urea Nitrogen 13 mg/dL (8-26); Calcium 8.7 mg/dL (8.6-10.8); Carbon Dioxide 27 mEq/L (19-29); Chloride 100 mEq/L (98-109); Glucose 105 mg/dL (70-99); Osmolality,Calculated 280 (280-300); Sodium 135 mEq/L (136-145); eGFR For African Americans > 60 (> 60); eGFR For Non-African Americans > 60 (> 60)
[2017-05-16 05:30] LABS: Potassium 4.1 mEq/L (3.5-4.5)
[2017-05-16] MEDS: Ipratropium/Albuterol Neb 3 ML IH PRN ×3 (05:49→22:52)
--- NOTE | 2017-05-16 07:01 | Arterial Study Report ---
LE Arterial Physiologic Study Patient Name:Km Sultana Order Number:[id number] Procedure Date:05/15/2017 Date:8Age:66 yrs Gender:Male Lt BP:153 / mmHg Rt.BP:147 / mmHgHeart Rate: Location:[facility] ED Room #: 9 Staple Laster:Aida Lopez RVT, RUTH Referring MD:Felipe Aleman DO toilet attendant:[facility] Deandra MD:Panchito Ayoub MD Primary Indications:Cold extremity Secondary Indications: PVD Risk Factors Yes/No Hypertension Yes Hypercholesterolemia Yes Smoking Current Yes Previous Vascular Surgery Yes Anticoagulants Yes Impressions: The right ORA and waveforms are consistent with moderate disease. Right ORA 0.51. The left ORA and waveforms are consistent with severe disease. Left ORA 0.00. Recommendations: Further evaluation recommended. After imaging the patient returned to er. Test completed on 05/15/2017 at 2:55:00 pm. Critical findings reported to Dr Aleman by phone at 2:55:00 pm on 05/15/2017 by Aida Lopez RVT, RUTH. Findings LE Arterial Physiologic Exam: Segmental Pressures: Left: The posterior tibial and dorsalis pedis pressure on the left was not obtained secondary to no audible Doppler signal. PVR: Right: The PVR waveforms are moderately diminished in the right ankle. Left: The PVR waveforms are severely diminished in the left ankle. Physiologic Test Results: The ORA demonstrates moderate arterial insufficiency on the right at rest. The ORA demonstrates severe arterial insufficiency on the left at rest. Segmental Pressures Side Location Pressure Index Result Right Posterior Tibial 78 0.51 Moderately Diminished Ankle Brachial Index Right Systolic Diastolic ORA Brachial 147 0.49 Posterior Tibial 75 0.49 Left Systolic Diastolic ORA Brachial 153 Updated by Panchito Ayoub MD on 05/16/2017 6:56:02 AM with Status of Final electronically signed on 05/16/2017 6:56:14 AM with status of Final
[2017-05-16] MEDS: 0.9 % Sodium Chloride 1,000 ML IVC SCH (08:50)
[2017-05-16] MEDS: Budesonide/Formoterol 160/4.5 MDI IH SCH ×2 (11:33→19:46)
[2017-05-16] MEDS ORDERED: Heparin 1,000 UNITS/500 mL NS 1,000 ML ONE (13:45)
[2017-05-16] MEDS ORDERED: Vancomycin 1,000 MG VIAL ONE ×2 (13:45→14:34)
[2017-05-16] MEDS ORDERED: Lidocaine -MPF 2% 2 ML VIAL ONE (13:50)
[2017-05-16] MEDS ORDERED: Lidocaine -MPF 4% 5 ML AMPUL ONE (13:50)
[2017-05-16] MEDS ORDERED: *HR* FentaNYL (PF) 100 MCG/2 ML VIAL ONE ×2 (13:50→15:04)
[2017-05-16] MEDS ORDERED: *HR* Propofol 200 MG/20 ML VIAL IVP ONE (13:50)
[2017-05-16] MEDS ORDERED: Ondansetron 4 MG/2 ML VIAL ONE (13:50)
[2017-05-16] MEDS ORDERED: Dexamethasone 4 MG/ML VIAL ONE (13:50)
[2017-05-16] MEDS: Ringers Solution, Lactated 1,000 ML IVC SCH ×2 (14:00→15:16)
[2017-05-16] MEDS ORDERED: *HR* Heparin 5,000 UNIT/ML VIAL ONE (15:22)
[2017-05-16] MEDS ORDERED: ceFAZolin 2,000 MG in D5% in Water (Mini-Bag+) 100 ML IVPB ONE (15:23)
[2017-05-16] MEDS ORDERED: Vancomycin 1,000 MG in D5% in Water 250 ML IVPB ONE (15:24)
[2017-05-16] MEDS ORDERED: *HR* Labetalol 20 MG/4 ML SYRINGE IVP PRN ×2 (15:42→18:52)
[2017-05-16] MEDS ORDERED: Ondansetron 4 MG/2 ML VIAL IVP ONE (15:42)
[2017-05-16] MEDS ORDERED: *HR* Promethazine 25 MG/ML VIAL IVP PRN (15:42)
[2017-05-16] MEDS ORDERED: Ipratropium/Albuterol Neb 3 ML ONE (17:02)
--- NOTE | 2017-05-16 17:04 | Electrocardiograph Report ---
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
[2017-05-16] MEDS: *HR* HYDROmorphone (PF) 1 MG/ML SYRINGE IVP PRN ×2 (17:05→17:12)
[2017-05-16] MEDS ORDERED: Ipratropium/Albuterol Neb 3 ML IH ONE (17:28)
[2017-05-16] MEDS ORDERED: Budesonide Neb 0.5 MG/2 ML IH ONE (17:57)
--- NOTE | 2017-05-16 17:57 | Operative Note ---
Date of procedure: 05/16/17 Pre-op diagnosis: Peripheral vascular disease with rest pain Post-op diagnosis: same Procedure: 1. Aortoiliac thrombectomy with 5 sao tomean eldon embolectomy catheter. 2. Left femoral to popliteal artery bypass graft thrombectomy with 4 sao tomean eldon embolectomy catheter. 3. Left iliofemoral endarterectomy. Complications: None Anesthesia: GETA Surgeon: Panchito Ayoub Estimated blood loss (cc): 200 Specimen: None Condition: stable Disposition: PACU Procedure in Detail: Indications: The patient is a 66 year old male with a history of peripheral vascular disease with disabling claudication. He has previously underdergone a left femoral to above knee popliteal artery bypass. He has had multiple thrombectomy procedure in the past. He is also hypercoagulable and is on Lovenox for anticoagulation. Despite his anticoagulation, he presented to the ER with acute on chronic limb ischemia. A CT scan revealed that her graft was occluded. Thrombectomy was recommended to alleviate his symptoms and reduce his risk of limb loss. Procedure: The patient was identified in the preoperative area. The risks, benefits and alternatives were discussed and all questions were answered. The patient was taken to the operating room and placed in the supine position on the operating room table. After the induction of general endotracheal anesthesia, the patient was cleaned and draped in the normal sterile fashion. An oblique incision was made sharply through the left groin skin. Hemostasis was obtained with electrocautery. Through a process of blunt, sharp and electrocautery dissection, the distal external iliac, deep and superficial femoral arteries were dissected and surrounded with vessel loops. The graft was also dissected and surrounded with vesel loops. The patient received intravenous heparin. After waiting adequate time or the heparin to circulate, the vessels were occluded with the vessel loops. A longitudinal arteriotomy was made in the common femoral artery and extended through the graft anastamosis distally. Proximally the arteriotomy was extended into the left external iliac artery. No flow was noted on release of the loops. A 5 sao tomean eldon catheter was passed proximally, but was met with obstruction. Withdrawal of the inflater balloon revealed significant thrombus and limited flow. Multiple additional passes resulted in additional thrombus, but antegrade flow remained sluggish. Inspection of the external iliac artery revealed intimal hyperplasia and plaque along the comon femoral and external liac artery. It was also noted that the deep femoral artery was occluded and the origin of the deep femorl artery could not be identified. This was consistent with findings on the CT scan. A dental freer was used to perform an endarterectomy on the external iliac artery and common femoral artery. Upon completion of the endarterectomy, pulsatile antegrade flow was noted on release of the clamp. Additional passes of the catheter resulted in no additional thrombus or embolus proximally. The lumen was flusehed with heparinized saline and the artery was occluded. A 4 sao tomean eldon catheter was passed distally and thrombus was retrieved from the deep femoral artery. Significant retrograde flow was noted from the deep femoral artery. A 4 sao tomean eldon catheter was passed distally through the graft and into the distal popliteal artery. Thrombus was retrieved on the first few passes. Additional passes resulted in no additional thrombus. Retrograde flow as noted through the graft. The vessels and graft were flushed with heparin. The graftotomy was reapproximated with a runnnig prolene. Prior to completing the closure, the vessels were flushed, the graft was flushed and heparin was infused into the lumen. Flow was restored in the [place] vessels and graft. Polyphasic signals were identified in the posterior tibial and dorsalis pedis arteries below the ankle. The wound was irrigated with antibiotic containing saline. Hemostasis was obtained with electrocautery. Platelet rich and platelet poor plasma were infused into the wounds. The wound was reapproximated with layers of 2-0 and 3-0 Vicryl. Skin was reapproximated with 3-0 Monocryl. Sterile dressing was applied. The patient was extubated and taken to recovery room in stable condition.
--- NOTE | 2017-05-16 18:29 | Anesthesia Evaluation Post Op ---
Date of Encounter: 05/16/17 Time of Encounter: 18:28 - Vital Signs Vital Signs: Last Vital Signs Temp 97.5 F L 05/16/17 18:00 Pulse 75 05/16/17 18:20 Resp 18 05/16/17 18:20 BP 143/90 05/16/17 18:20 Pulse Ox 100 05/16/17 18:20 - Lungs Lungs: Clear Ascult./Percussion - Airway Airway: Non-obstructed - Cardiovascular Regular Rate - Mental Status Mental Status: Alert & Oriented, Answers Appropriately - Pain Pain Scale: 2 - Nausea Vomiting Nausea Vomiting: Not Present - Hydration Hydration: NPO - Discharge PostOp Status: Transfer Patient to floor
[2017-05-16] MEDS ORDERED: Ringers Solution, Lactated 1,000 ML IVC SCH (18:52)
[2017-05-16] MEDS ORDERED: Acetaminophen 325 MG TABLET PO PRN (18:52)
[2017-05-16] MEDS ORDERED: Melatonin 3 MG TABLET PO PRN (18:52)
[2017-05-16] MEDS ORDERED: Ondansetron 4 MG/2 ML VIAL IVP PRN (18:52)
[2017-05-16] MEDS ORDERED: *HR* Morphine 2 MG/ML SYRINGE IVP PRN (18:52)
[2017-05-16] MEDS ORDERED: 0.9 % Sodium Chloride 1,000 ML IVC SCH (18:52)
[2017-05-16] MEDS ORDERED: *HR* HYDROcodone/Acet 5/325 mg TABLET PO PRN (18:52)
[2017-05-16] MEDS ORDERED: Naloxone 0.4 MG/ML INJ IVP PRN (18:52)
[2017-05-16] MEDS: *HR* Enoxaparin 80 MG/0.8 ML SYRINGE SQ SCH (19:49)
[2017-05-16] MEDS: Nicotine 21 MG PATCH.TD24 TD SCH (19:50)
[2017-05-16] MEDS ORDERED: Lisinopril 20 MG TABLET PO SCH (21:00)
[2017-05-16] MEDS ORDERED: hydroCHLOROthiazide 25 MG TABLET PO SCH (21:00)
[2017-05-16] MEDS ORDERED: Aspirin Enteric Coated 81 MG Tablet PO SCH (21:00)
[2017-05-16] MEDS: ceFAZolin 2,000 MG in D5% in Water 100 ML IVPB SCH (21:28)
[2017-05-16] MEDS ORDERED: Budesonide Neb 0.5 MG/2 ML IH SCH (22:00)
[2017-05-16] MEDS: *HR* OxyCODONE Immed Rel 5 MG TABLET PO PRN (22:34)
[2017-05-17] MEDS ORDERED: Vancomycin 1,250 MG in D5% in Water 250 ML IVPB ONE (03:00)
[2017-05-17] MEDS: Ipratropium/Albuterol Neb 3 ML IH PRN ×2 (04:02→10:46)
[2017-05-17 05:36] LABS: Basophils % 0.3 %; Eosinophils # 0.1 K/mcL (0.0-0.6); Eosinophils % 1.8 %; Hematocrit 38.2 % (37.5-50.1); Immature Granulocytes % 0.3 % (0-4); Lymphocytes # 1.1 K/mcL (0.6-4.6); Lymphocytes % 16.5 %; Mean Corpuscular HGB Conc 31.4 g/dL (31.6-35.5); Mean Corpuscular Hemoglobin 30.8 pg (28.0-33.3); Mean Corpuscular Volume 98.2 fL (83.0-100.0); Mean Platelet Volume 9.1 fL (9.4-12.4); Monocytes # 0.6 K/mcL (0.0-1.3); Monocytes % 8.3 %; Neutrophils # 4.8 K/mcL (1.6-8.9); Platelet Count 119 K/mcL (140-400); Red Blood Count 3.89 M/mcL (4.19-5.50); Red Cell Distribution Width 15.5 % (11.5-14.5); Segmented Neutrophils % 72.8 %
[2017-05-17 05:47] LABS: BUN/Creatinine Ratio 12 (6-26); Blood Urea Nitrogen 8 mg/dL (8-26); Calcium 8.3 mg/dL (8.6-10.8); Carbon Dioxide 31 mEq/L (19-29); Chloride 100 mEq/L (98-109); Glucose 117 mg/dL (70-99); Osmolality,Calculated 281 (280-300); Potassium 3.8 mEq/L (3.5-4.5); Sodium 136 mEq/L (136-145); eGFR For African Americans > 60 (> 60); eGFR For Non-African Americans > 60 (> 60)
[2017-05-17] MEDS: *HR* Enoxaparin 80 MG/0.8 ML SYRINGE SQ SCH (05:55)
[2017-05-17] MEDS: ceFAZolin 2,000 MG in D5% in Water 100 ML IVPB SCH (05:55)
[2017-05-17] MEDS: Nicotine 21 MG PATCH.TD24 TD SCH (07:51)
[2017-05-17] MEDS: *HR* OxyCODONE Immed Rel 5 MG TABLET PO PRN (08:02)
[2017-05-17] MEDS: Budesonide/Formoterol 160/4.5 MDI IH SCH (10:46)
--- NOTE | 2017-05-17 11:24 | Discharge Summary ---
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 His foot is warm. His pedal signals are polyphasic. He has no hematoma and his wound is healing well. He will be discharged today without complications. He will resume lovenox q12. (2) COPD (chronic obstructive pulmonary disease) Priority: Secondary Status: Chronic Qualifiers: COPD type: emphysema Emphysema type: panlobular Qualified Code(s): J43.1 - Panlobular emphysema (3) Tobacco abuse Priority: Secondary Status: Chronic (4) Essential hypertension Priority: Secondary Status: Chronic (5) Hypercoagulable state Priority: Secondary Status: Acute (6) Blood loss anemia Priority: Secondary Status: Acute Comments: The patient has acute expected postoperative blood loss anemia. He is hemodynamically stable without evidence of ongoing blood loss. - Discharge Medications Prescriptions: Nicotine Patch [Nicoderm] 21 mg TD DAILY #30 Oxycodone HCl/Acetaminophen [Percocet 5-325 mg Tablet] 1 each PO Q4H PRN #30 tablet PRN Reason: postoperative pain Home Medications: Aspirin [Lo-Dose Aspirin EC] 81 mg PO HS 04/16/17 [History] Budesonide/Formoterol 160/4.5 [Symbicort 160/4.5] 2 puff IH BIDR 04/16/17 [ History] Carvedilol [Coreg] 6.25 mg PO BID 04/16/17 [History] Enoxaparin [Lovenox] 80 mg SQ Q12H 04/16/17 [History] Ipratropium/Albuterol Neb [Duoneb] 3 ml IH Q6HR PRN 04/16/17 [History] Ipratropium/Albuterol Sulfate [Combivent Respimat Inhal [place]] 2 puff IH Q6H PRN 04/16/17 [History] Lisinopril [Zestril] 40 mg PO HS 04/16/17 [History] Melatonin 3 mg PO HS PRN 04/16/17 [History] Omeprazole [PriLOSEC] 20 mg PO HS 04/16/17 [History] Simvastatin [Zocor] 40 mg PO HS 04/16/17 [History] hydroCHLOROthiazide [Hydrochlorothiazide] 25 mg PO HS 04/16/17 [History] Nicotine Patch [Nicoderm] 21 mg TD DAILY #30 05/17/17 [Rx] Oxycodone HCl/Acetaminophen [Percocet 5-325 mg Tablet] 1 each PO Q4H PRN #30 tablet 05/17/17 [Rx] Allergies/Adverse Reactions: 3 Allergy/AdvReac Type Severity Reaction Status Date / Time bee venom protein (honey bee) Allergy Swelling Verified 04/16/17 07:30 of Lip/Tongue/Throat Date of admission: 05/15/17 16:49 Primary care physician: PCP NONE Procedure(s) Performed: Left lower extremity endarteretomy and thrombectomy. Discharging clinician: Panchito Ayoub Anticipated date of discharge: 05/17/17 - Patient Status Disposition: Home, Self-Care Condition: Good Functional capacity at discharge: independent ambulation Overall status at discharge: patient is back to baseline - Discharge Instructions Follow Up With: [facility] [Outside] - 05/27/17 9:15 am (red team) Panchito Ayoub MD [Partnered Physician] - 06/16/17 2:50 pm Additional Instructions: May remove left groin bandage and shower 05/18/17. Wet to dry dressing changes on right groin wound 1-2 times per day. Was wounds gently and pat to dry. No tub baths or swimming until 06/18/17. Call Dr. Ayoub at [phone] with questions or concerns. - Diet and Activity Activity: ambulate only with your walker, increase activity as tolerated Diet: low fat, low cholesterol - Hospital Course Hospital course: Mr. Sultana is a 66 year old male was admitted on 05/15/17 with acute left lower extremity ischemia. He was found to have an occluded left lower extremity bypass graft. He underwent graft thrombectomy and an endarterectomy. On postoperaetive day #1 he was healing well. His symptoms had resolved. He was discharged on postoperative day #1 without complications. Time spent discussing smoking cessation with patient: 3 to 10 minutes - Time Spent with Patient Total time spent providing and/or coordinating discharge services: Exam Vital Signs, Last 4 Hours Temp Pulse Resp BP Pulse Ox 05/17/17 10:48 18 93 05/17/17 08:02 98.0 F 93 18 119/79 93 General: Present: Conversant, No Apparent Distress HEENT: Present: Atraumatic, Pupils equal Cardiac: Present: Reg Rate and Rhythm Lungs: Present: Normal Breath Sounds Neuro: Present: Alert and responsive, No focal deficits noted, Motor nerves grossly intact, Sensory nerves grossly intact Vascular: Present: Normal capillary refill, Pulse, normal (left pedal signals are polyphasic), Surgical incisions (left groin incision clean, dry and intact without erythema or drainage) Skin: Present: Wound/ulcer(s) (right foot chronic ulcer is healing slowly.) - VTE Documentation of Mechanical Device: Intermittent pneumatic compression device
[2017-05-17 11:39] VITALS: BP 134/64
== END 2017-05-17 13:20 | disposition home or self-care (01) | DRG 271 ==
LOC: 3ANU 13:51 → EMEROO 13:51 → 3ANU 17:06 → 2NNU 05-16 14:58
PROVIDERS: ADMIT Surgery; ATTEND Surgery

== ENCOUNTER 2017-07-31 17:19 | Inpatient (IN) ==
[2017-07-31] MEDS ORDERED: Ipratropium/Albuterol Neb 3 ML IH ONE (18:16)
[2017-07-31] MEDS ORDERED: Ipratropium/Albuterol Neb 3 ML ONE (18:17)
--- NOTE | 2017-07-31 18:35 | Emergency Department Note ---
Disposition Clinical Impression: Peripheral vascular disease Disposition: Admitted As Inpatient Condition: Fair Time of Disposition: 18:38 Extremity Problem HPI - General Chief complaint: ED Extremity Problem,Nontraumatic Stated complaint: Possible circulation loss in left foot Time Seen by Provider: 07/31/17 18:24 Source: patient, family Limitations: no limitations Nursing Notes Reviewed: Yes Vital Signs Reviewed: Yes - History of Present Illness HPI Narrative: Presents from the vascular service with low ABIs and the patient does have pain and numbness both lower extremities for the last long period time but worse the last several days, constant, worse with walking and he does have a decreased ability for ambulation. He does have some drainage of the wound in the right lower extremity and states that this was cultured and grew Pseudomonas. He is using ciprofloxacin for this. The patient does not have any fever but does have some blurred vision. No rhinorrhea or coughing or sneezing. No blood in the urine or stool. No new skin rash. Does have easy bruising. Social history : Smoker, no alcohol Pain Scale: 3 - Related Data Home Medications Medication Instructions Recorded Confirmed Aspirin [Lo-Dose Aspirin EC] 81 mg PO HS 04/16/17 05/15/17 Budesonide/Formoterol 160/4.5 2 puff IH BIDR 04/16/17 05/15/17 [Symbicort 160/4.5] Carvedilol [Coreg] 6.25 mg PO BID 04/16/17 05/15/17 Enoxaparin [Lovenox] 80 mg SQ Q12H 04/16/17 05/15/17 Ipratropium/Albuterol Neb [Duoneb] 3 ml IH Q6HR PRN 04/16/17 05/15/17 Ipratropium/Albuterol Sulfate 2 puff IH Q6H PRN 04/16/17 05/15/17 [Combivent Respimat Inhal [place]] Lisinopril [Zestril] 40 mg PO HS 04/16/17 05/15/17 Omeprazole [PriLOSEC] 20 mg PO HS 04/16/17 05/15/17 Simvastatin [Zocor] 40 mg PO HS 04/16/17 05/15/17 hydroCHLOROthiazide 25 mg PO HS 04/16/17 05/15/17 [Hydrochlorothiazide] Doxylamine Succinate [Sleep Aid] 25 mg PO HS 07/31/17 07/31/17 Oxygen 2 l NS HS 07/31/17 07/31/17 Allergies Allergy/AdvReac Type Severity Reaction Status Date / Time bee venom protein (honey bee) Allergy Swelling Verified 04/16/17 07:30 of Lip/Tongue/Throat Review of Systems: Constitutional: No fever Vision: + blurred vision ENT: No rhinorrhea Respiratory: No cough Allergic: No allergies : No blood in urine GI: No blood in stool Hematologic: No bruising Dermatologic: + skin rash Musculoskeletal: + pain in the extremities Neuro: + numbness of the extremities Past Medical History - Past Medical History Medical history: Reports: COPD, DVT, hyperlipidemia, hypertension, peripheral artery disease Surgical history: Reports: vascular surgery Psychiatric history: Reports: no psych history - Social History Smoking Status: Current every day smoker Smokeless Tobacco Status: No Alcohol use: Reports: none Drug use: Reports: none Physical Exam CONSTITUTIONAL: Alert and oriented X3, well-nourished, well appearing, in no apparent distress HEAD: Normocephalic; atraumatic. EYES: PERRL, no scleral icterus. NOSE: The nose is normal in appearance without rhinorrhea RESP: Normal chest excursion with respiration; breath sounds with bilateral symmetric mild wheezing CARD: Regular rhythm, without murmurs, rub or gallop ABD: Non-distended; non-tender, soft,without rigidity, rebound or guarding SKIN: Normal for age and race; warm and dry; no apparent lesions extremities: Some erythema right lower extremity, neither EXT: the patient does not have Doppler pulses on either foot. I am able to palpate a right femoral strong pulse. Left femoral does have much scar tissue overlying but there is a good Doppler pulses of the left femoral. Both feet are warm. There is a draining wound on the mid aspect of the right lower leg anteriorly. Does have generalized erythema right lower extremity but no crepitus or necrotic areas. - General Limitations: no limitations General appearance: alert, in no apparent distress Course Vital Signs Temperature 98.3 F 07/31/17 17:48 Pulse Rate 101 07/31/17 17:48 Respiratory Rate 22 07/31/17 17:48 Blood Pressure 133/65 07/31/17 17:48 O2 Sat by Pulse Oximetry 84 07/31/17 17:48 Temperature 98.3 F 07/31/17 17:48 Pulse Rate 98 07/31/17 19:34 Respiratory Rate 18 07/31/17 19:43 Blood Pressure 142/87 07/31/17 19:43 O2 Sat by Pulse Oximetry 92 07/31/17 19:34 Oxygen Delivery Oxygen Delivery Nasal Cannula Extremity Problem, Nontraumati - MDM Narrative Medical decision making narrative: The patient is chronically ill-appearing and he is still smoking and he does have significant vascular disease which has been surgically repaired multiple times. We did speak with vascular and they will accept the patient for admission onto their service. 1837 I did rev labs. Pt will b admitted and anticoagulated 1948 - Medical Records Medical records reviewed: Yes I reviewed the patient's medical records. - Lab Data Lab results reviewed: Yes I reviewed the patient's lab results. Result diagrams: 07/31/17 18:38 07/31/17 18:38 Lab Results 07/31/17 07/31/17 07/31/17 Range/Units 18:38 18:38 18:38 WBC 9.6 (4.3-11.1) K/mcL RBC 5.29 (4.19-5.50) M/mcL Hgb 15.8 (12.9-16.9) g/dL Hct 49.0 (37.5-50.1) % MCV 92.6 (83.0-100.0) fL MCH 29.9 (28.0-33.3) pg MCHC 32.2 (31.6-35.5) g/dL RDW 15.5 H (11.5-14.5) % Plt Count 144 (140-400) K/mcL MPV 8.8 L (9.4-12.4) fL Immature Gran % 0.4 (0-4) % Seg Neutrophils % 76.7 % Lymphocytes % 13.2 % Monocytes % 7.2 % Eosinophils % 2.1 % Basophils % 0.4 % Neutrophils # 7.4 (1.6-8.9) K/mcL Lymphocytes # 1.3 (0.6-4.6) K/mcL Monocytes # 0.7 (0.0-1.3) K/mcL Eosinophils # 0.2 (0.0-0.6) K/mcL Basophils # 0.0 (0.0-0.2) K/mcL PT 11.8 (9.4-12.1) Seconds INR 1.1 APTT 32.0 (26.0-36.0) Seconds Sodium (136-145) mEq/L Potassium (3.5-4.5) mEq/L Chloride (98-109) mEq/L Carbon Dioxide (19-29) mEq/L BUN (8-26) mg/dL Creatinine (0.72-1.25) mg/dL Est GFR ( Amer) (> 60) Est GFR (Non-Af Amer) (> 60) BUN/Creatinine Ratio (6-26) Glucose (70-99) mg/dL Calculated Osmolality (280-300) Calcium (8.6-10.8) mg/dL Troponin I (0-0.03) ng/mL B-Natriuretic Peptide 15 (0-100) pg/mL 07/31/17 07/31/17 Range/Units 18:38 18:38 WBC (4.3-11.1) K/mcL RBC (4.19-5.50) M/mcL Hgb (12.9-16.9) g/dL Hct (37.5-50.1) % MCV (83.0-100.0) fL MCH (28.0-33.3) pg MCHC (31.6-35.5) g/dL RDW (11.5-14.5) % Plt Count (140-400) K/mcL MPV (9.4-12.4) fL Immature Gran % (0-4) % Seg Neutrophils % % Lymphocytes % % Monocytes % % Eosinophils % % Basophils % % Neutrophils # (1.6-8.9) K/mcL Lymphocytes # (0.6-4.6) K/mcL Monocytes # (0.0-1.3) K/mcL Eosinophils # (0.0-0.6) K/mcL Basophils # (0.0-0.2) K/mcL PT (9.4-12.1) Seconds INR APTT (26.0-36.0) Seconds Sodium 138 (136-145) mEq/L Potassium 3.9 (3.5-4.5) mEq/L Chloride 98 (98-109) mEq/L Carbon Dioxide 31 H (19-29) mEq/L BUN 15 (8-26) mg/dL Creatinine 0.84 (0.72-1.25) mg/dL Est GFR ( Amer) > 60 (> 60) Est GFR (Non-Af Amer) > 60 (> 60) BUN/Creatinine Ratio 18 (6-26) Glucose 112 H (70-99) mg/dL Calculated Osmolality 288 (280-300) Calcium 9.2 (8.6-10.8) mg/dL Troponin I 0.00 (0-0.03) ng/mL B-Natriuretic Peptide (0-100) pg/mL
[2017-07-31 18:52] LABS: Basophils % 0.4 %; Eosinophils # 0.2 K/mcL (0.0-0.6); Eosinophils % 2.1 %; Hemoglobin 15.8 g/dL (12.9-16.9); Immature Granulocytes % 0.4 % (0-4); Lymphocytes # 1.3 K/mcL (0.6-4.6); Lymphocytes % 13.2 %; Mean Corpuscular HGB Conc 32.2 g/dL (31.6-35.5); Mean Corpuscular Hemoglobin 29.9 pg (28.0-33.3); Mean Corpuscular Volume 92.6 fL (83.0-100.0); Mean Platelet Volume 8.8 fL (9.4-12.4); Monocytes # 0.7 K/mcL (0.0-1.3); Monocytes % 7.2 %; Neutrophils # 7.4 K/mcL (1.6-8.9); Platelet Count 144 K/mcL (140-400); Red Blood Count 5.29 M/mcL (4.19-5.50); Red Cell Distribution Width 15.5 % (11.5-14.5); Segmented Neutrophils % 76.7 %
[2017-07-31 18:53] LABS: INR 1.1; Prothrombin Time 11.8 Seconds (9.4-12.1)
[2017-07-31 19:00] LABS: BUN/Creatinine Ratio 18 (6-26); Blood Urea Nitrogen 15 mg/dL (8-26); Calcium 9.2 mg/dL (8.6-10.8); Carbon Dioxide 31 mEq/L (19-29); Chloride 98 mEq/L (98-109); Glucose 112 mg/dL (70-99); Osmolality,Calculated 288 (280-300); Potassium 3.9 mEq/L (3.5-4.5); Sodium 138 mEq/L (136-145); eGFR For African Americans > 60 (> 60); eGFR For Non-African Americans > 60 (> 60)
--- NOTE | 2017-07-31 19:20 | Vascular/Endovascular H&P ---
Date of Encounter: 07/31/17 Time of Encounter: 19:17 Assessment and Plan (1) COPD (chronic obstructive pulmonary disease) Current Visit: Yes Status: Chronic Patient is under medical treatment. The patient uses oxygen at 2 L per nasal cannula at night while sleeping and also on a when necessary basis for shortness of breath at home. Qualifiers: COPD type: emphysema Emphysema type: panlobular Qualified Code(s): J43.1 - Panlobular emphysema (2) Peripheral vascular disease Current Visit: Yes Status: Chronic Patient has exacerbation of chronic lower extremity occlusive process. He appears to have bilateral femoral popliteal bypass graft occlusions with profoundly ischemic ankle-brachial indices. The patient will be admitted tonight. He will placed on intravenous heparin. The subcutaneous Lovenox will be discontinued. The patient will go to the operating room tomorrow after the patient is evaluated by Dr. Ayoub in the morning. The debridement not will be on hold and the patient will require either thrombectomy of his bypass grafts and/or revision, with the left lower extremity most likely addressed first. (3) Tobacco abuse Current Visit: Yes Status: Chronic The patient has a long history of chronic tobacco abuse. (4) Hypercoagulable state Current Visit: Yes Status: Chronic The patient is under medical treatment with Lovenox subcutaneous twice a day for hypercoagulable state. Due to the need for surgery this will be discontinued and the patient will be placed on intravenous heparin beginning this evening. History of Present Illness Chief complaint: Left foot pain HPI: Mr. Sultana is a 66 year old male With a long and complicated history of bilateral lower extremity vascular occlusive disease. Dr. Ayoub has performed multiple surgeries with bypass grafting and thrombectomies in an attempt to maintain his lower extremities. The patient was receiving Lovenox subcutaneous twice a day in an attempt to maintain graft patency. The patient developed left foot pain the night before last. The vascular surgery clinic was notified of this process early this afternoon. The patient was directed to get noninvasive testing which was performed at [place]. This revealed an ankle-brachial index of 0.26 on the right and 0.19 on the left. The patient was then directed to come to the emergency room for admission. The patient's noted there has been color changes to the left foot. The left heel with a bluish discoloration. She also noted times when the left foot was cold. When I examined the patient in the ER at she states that the foot appears warm or in more normal in color tonight than it has in the past. The patient has had previous recent noninvasive testing earlier in the fall or late summer that demonstrated both femoral-popliteal bypass grafts to be patent bilaterally. The patient has experienced difficulty with wound healing in the right calf and he was scheduled for an outpatient debridement of the wound tomorrow. Past Med Surg Social Fam HX - Past Medical History Medical history: COPD, DVT, hyperlipidemia, hypertension, peripheral artery disease Psychiatric history: no psych history - Past Surgical History Surgical History: vascular surgery - Social History Smoking Status: Current every day smoker Smokeless Tobacco Status: No Alcohol use: none Drug use: none - Family History Father Family Member Ethnicity: Non- Living Status: Hx Family Cancer: Yes Medications and Allergies Aspirin [Lo-Dose Aspirin EC] 81 mg PO HS 04/16/17 [History] Budesonide/Formoterol 160/4.5 [Symbicort 160/4.5] 2 puff IH BIDR 04/16/17 [ History] Carvedilol [Coreg] 6.25 mg PO BID 04/16/17 [History] Enoxaparin [Lovenox] 80 mg SQ Q12H 04/16/17 [History] Ipratropium/Albuterol Neb [Duoneb] 3 ml IH Q6HR PRN 04/16/17 [History] Ipratropium/Albuterol Sulfate [Combivent Respimat Inhal [place]] 2 puff IH Q6H PRN 04/16/17 [History] Lisinopril [Zestril] 40 mg PO HS 04/16/17 [History] Omeprazole [PriLOSEC] 20 mg PO HS 04/16/17 [History] Simvastatin [Zocor] 40 mg PO HS 04/16/17 [History] hydroCHLOROthiazide [Hydrochlorothiazide] 25 mg PO HS 04/16/17 [History] Doxylamine Succinate [Sleep Aid] 25 mg PO HS 07/31/17 [History] Oxygen 2 l NS HS 07/31/17 [History] 3 Allergy/AdvReac Type Severity Reaction Status Date / Time bee venom protein (honey bee) Allergy Swelling Verified 04/16/17 07:30 of Lip/Tongue/Throat All Systems Review: A 10-system review of systems was performed and is negative for pertinent findings except as documented above in the HPI. Exam General: Present: Conversant, No Apparent Distress HEENT: Present: Atraumatic, Normocephaly Cardiac: Present: Reg Rate and Rhythm Neuro: Present: Alert and responsive, No focal deficits noted Abdomen: Present: Soft, Non-tender, Other (Obese) Vascular: Present: Pulse, absent (No palpable left femoral or popliteal or ankle pulses. No palpable right popliteal or ankle pulses.), Color/Temperature ( The color of the feet demonstrate a marked erythematous to rubra's appearance. The patient has capillary refill of approximately 3-4 seconds.), Surgical incisions (The patient has multiple surgical incisions in both lower extremities. He has a dressing over the right calf incision.) Results 07/31/17 18:38 07/31/17 18:38 - Imaging / Other Tests Non Invasive Vascular Testing: report reviewed, image reviewed (Profound ischemia of bilateral lower extremities by noninvasive testing with ankle- brachial index of approximate 0.2 bilaterally. Clinically patient has bilateral femoral popliteal bypass graft occlusions)
[2017-07-31] MEDS ORDERED: *HR* Heparin 5,000 UNIT/ML VIAL IVP PRN ×2 (19:50)
[2017-07-31] MEDS ORDERED: *HR* Heparin 5,000 UNIT/ML VIAL IVP ONE (19:50)
[2017-07-31] MEDS ORDERED: Heparin 25,000 UNIT/500 ML D5W 25,000 UNIT/500 ML MLS IVC SCH (20:00)
[2017-07-31] MEDS ORDERED: Ipratropium/Albuterol Neb 3 ML IH PRN (21:02)
[2017-07-31] MEDS ORDERED: hydroCHLOROthiazide 25 MG TABLET PO SCH ×2 (21:46→21:55)
[2017-07-31] MEDS ORDERED: Lisinopril 20 MG TABLET PO SCH ×2 (21:49→21:57)
[2017-07-31] MEDS: Aspirin 81 MG TAB.CHEW PO SCH (22:06)
[2017-07-31] MEDS: Gabapentin 300 MG CAPSULE PO SCH (22:08)
[2017-07-31] MEDS: *HR* HYDROcodone/Acet 5/325 mg TABLET PO PRN (22:36)
[2017-07-31] MEDS: Budesonide/Formoterol 160/4.5 MDI IH SCH (22:55)
[2017-08-01] MEDS: *HR* HYDROcodone/Acet 5/325 mg TABLET PO PRN ×2 (04:10→07:57)
[2017-08-01] MEDS: Aspirin 81 MG TAB.CHEW PO SCH (07:58)
[2017-08-01] MEDS: Gabapentin 300 MG CAPSULE PO SCH ×2 (07:58→21:28)
[2017-08-01] MEDS: Budesonide/Formoterol 160/4.5 MDI IH SCH ×2 (08:03→21:44)
[2017-08-01] MEDS ORDERED: Lidocaine/EPI 1:100k 1% 20 ML VIAL ONE (08:54)
[2017-08-01] MEDS ORDERED: Heparin 1,000 UNITS/500 mL NS 1,500 ML ONE (08:54)
[2017-08-01] MEDS ORDERED: Vancomycin 1,000 MG VIAL ONE ×2 (08:55→11:22)
[2017-08-01] MEDS ORDERED: Lidocaine -MPF 2% 2 ML VIAL ONE ×2 (10:43→11:47)
[2017-08-01] MEDS ORDERED: *HR* FentaNYL (PF) 100 MCG/2 ML VIAL ONE (10:43)
[2017-08-01] MEDS ORDERED: Lidocaine -MPF 4% 5 ML AMPUL ONE (10:43)
[2017-08-01] MEDS ORDERED: *HR* Propofol 200 MG/20 ML VIAL IVP ONE (10:43)
[2017-08-01] MEDS ORDERED: *HR* Rocuronium Bromide 50 MG/5 ML VIAL ONE ×2 (10:43→13:28)
[2017-08-01] MEDS: Ringers Solution, Lactated 1,000 ML IVC SCH ×2 (11:00→13:01)
[2017-08-01] MEDS ORDERED: Water for inj. (sterile) 20 ML IV ONE (11:22)
[2017-08-01] MEDS ORDERED: CeFAZolin Premix DUPLEX 2,000 MG/50 ML BAG IVPB ONE (11:26)
[2017-08-01] MEDS ORDERED: Vancomycin 1,000 MG in D5% in Water 250 ML IVPB ONE (11:26)
[2017-08-01] MEDS ORDERED: *HR* Phenylephrine 10 MG/ML VIAL ONE (11:44)
--- NOTE | 2017-08-01 11:46 | Vascular/[facility] Progress Note ---
Date of Encounter: 08/01/17 Time of Encounter: 11:15 - Assessment and plan (1) Limb ischemia Current Visit: No Status: Acute The patient has acute on chronic left lower extremity ischemia. He a decreased motor and sensory exam. His left ORA is consistent with critical disease. Urgent revascularization is required to reduce his risk of limb loss. The patient was informed that given his acute and prolonged graft occlusion while therapeutically anticoagulated with lovenox suggests that terminal makeup operator patency of his graft is unlikely. The patient also has an occluded right femoral to popliteal artery bypass. HIs right limb is currently asysmptomatic and appears viable. He also has a chronic right lower extremity ulcer which may be debrided today. The patient continues to smoke and was advised that continued smoking will likely result in limb loss. 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 He denies chest pain or shortness of breath. Vital Signs, Last 4 Hours Temp Pulse Resp BP Pulse Ox 08/01/17 08:04 16 92 08/01/17 08:00 98.0 F 87 16 116/64 92 - Physical Examination General: Present: Conversant HEENT: Present: Pupils equal Cardiac: Present: Reg Rate and Rhythm Lungs: Present: Normal Breath Sounds Neuro: Present: Alert and responsive, Other (decreased motor function at left foot, left foot with decreased sensation to light touch) Vascular: Present: Capillary refill delayed (left foot), Color/Temperature ( right foot warm, left foot cool) Abdomen: Present: Soft Skin: Present: Wound/ulcer(s) (Right leg superficial ulceration with minimal induration) - VTE Reasons for not Prescribing Prophylaxis: Not indicated-Anticoagulated or INR therapeutic Results 07/31/17 18:38 07/31/17 18:38 Lab Results, Last 24 hours 08/01/17 03:34 APTT 52.4 H D Consult Discharge Plan - Plan [facility]Primary Care Provider[facility] -
[2017-08-01] MEDS ORDERED: EPHEDrine 50 MG/ML VIAL ONE (12:31)
[2017-08-01] MEDS ORDERED: *HR* Heparin 5,000 UNIT/ML VIAL ONE (13:41)
[2017-08-01] MEDS ORDERED: Neostigmine Methylsulfate 3 MG/3 ML SYRINGE ONE (14:10)
[2017-08-01] MEDS ORDERED: *HR* HYDROmorphone 2 MG/ML SYRINGE ONE (14:31)
[2017-08-01] MEDS ORDERED: Ondansetron 4 MG/2 ML VIAL ONE (14:35)
[2017-08-01] MEDS ORDERED: Dexamethasone 4 MG/ML VIAL ONE (14:37)
[2017-08-01] MEDS ORDERED: *HR* HYDROmorphone (PF) 1 MG/ML SYRINGE IVP PRN (14:38)
[2017-08-01] MEDS ORDERED: *HR* Labetalol 20 MG/4 ML SYRINGE IVP PRN ×2 (14:38→16:10)
[2017-08-01] MEDS ORDERED: *HR* Promethazine 25 MG/ML VIAL IVP PRN (14:38)
[2017-08-01] MEDS ORDERED: Ipratropium Neb 0.5 MG NEBULIZER IH ONE (14:38)
[2017-08-01] MEDS ORDERED: Ondansetron 4 MG/2 ML VIAL IVP ONE (14:38)
--- NOTE | 2017-08-01 15:34 | Operative Note ---
Date of procedure: 08/01/17 Pre-op diagnosis: Acute left lower extremity ischemia, peripheral vascular disease Post-op diagnosis: same Procedure: 1. Left femoral to popliteal artery bypass graft thrombectomy with 4 emirati eldon embolectomy catheter. 2. Left popliteal, anterior tibial and tibioperoneal trunk artery endarterectomy. 3. Right leg and foot skin and subcutaneous tissue wound debridement. Complications: None Anesthesia: GETA Surgeon: Panchito Ayoub Estimated blood loss (cc): 250 Specimen: Left lower extremity thrombus and plaque Condition: stable Disposition: PACU Procedure in Detail: Indications: The patient is a 67 year old male with an extensive history of peripheral vascular disease with disabling claudication. He has previously undergone multiple revascularization procedures including a left femoral to above knee popliteal artery bypass for a left superficial femoral artery occlusion. He developed acute on chronic limb ischemia on 07/29/17. He presented to the ER on 07/31/17 for further evaluation. Urgent revascularization was recommended to reduce his risk of limb loss. Procedure: The patient was identified in the preoperative area. The risks, benefits and alternatives were discussed and all questions were answered. The patient was taken to the operating room and placed in the supine position on the operating room table. After the induction of general endotracheal anesthesia, the patient was cleaned and draped in the normal sterile fashion. An oblique incision was made sharply through his previous left groin scar overlying the femoral vessels. Hemostasis was obtained with electrocautery. Through a process of blunt, sharp and electrocautery dissection, the distal external iliac, deep and superficial femoral arteries were dissected and surrounded with vessel loops. The graft was also dissected and surrounded with vesel loops. The patient received a 5000 unit bolus of heparin. After waiting adequate time or the heparin to circulate, the vessels were occluded with the vessel loops. A longitudinal arteriotomy was made through the graft anastamosis. No flow was noted on release of the loops. A 4 emirati eldon catheter was passed into the aorta and inflated. It was withdrawn and some acute thrombus and chronic embolic material was retrieved. This was sent to pathology. Brisk pulsatile flow was noted at this time. Additional passes of the catheter resulted in no additional thrombus or embolus proximally. A 4 emirati eldon catheter was passed distally through the graft and into the distal popliteal artery. Thrombus was retrieved on multiple passes. Additional passes resulted in no additional thrombus. No retrograde flow was noted through the graft. The vessels and graft were flushed with heparin. A longitudinal incision was made in the left medial thigh through his previous incision. Through a process of blunt sharp and electrocautery dissection, the graft and popliteal artery were dissected and surounded with vessel loops. A graftomy was performed and thrombectomy was performed with a 4 emirati embolectomy catheter. Additional thrombus was removed from the graft, but the catheter would not pass into the popliteal artery. Further inspection revealed that the popliteal artery was chronically occluded. His prior left medial leg scar was opened sharply. Hemostasis was obtained with electrocautery. Througha process of blunt, sharp and electrocautery dissection, the popliteal artery, anteriotibial artery and tibioperoneal trunk arteries were dissected circumferentially and surrounded with vessel loops. A longitudinal arteriotomy was performed on the popliteal artery and extended into the tibioperoneal trunk. Occlusive plaque was noted. Using a dental freer , an endarterectomy was performed on the popliteal artery, anterior tibial artery and tibioperoneal trunk. The plaques was excised into the anterior tibial artery and no retrograde flow was noted. The plaque was excised into the bifurcation of the tibioperoneal trunk. The posterior tibial and peroneal veins were firm and had no retrograde flow. Given no target for bypass, abigail arteriotomy was reapproximated with a running 6-0 prolene. No signals were identified in the posterior tibial, peroneal or dorsalis pedis arteries below the ankle. The wounds were irrigated with antibiotic containing saline. Hemostasis was obtained with electrocautery. The wounds were reapproximated with 2-0 and 3-0 vicryl. The left groin incision was reapproximated with 3-0 Monocryl. The remaining skin incisions were closed with jose. Sterile dressings were applied. The right leg and foot were prepped and draped in the normal sterile fashion. The right medial leg wound was debrided of necrotic skin and subcutaneous tissue. The right dorasl foot wound was also debrided of necrotic skin and subcutaneous tissue. The wounds were irrigated with antibiotic containing saline. Hemostsais was obtained with electrocautery. Sterile dressings were applied. The patient was taken to the recover room in stable condition. He was extubated in the recovery room.
[2017-08-01] MEDS ORDERED: *HR* Succinylcholine 200 MG/10 ML VIAL IVP ONE (15:49)
[2017-08-01] MEDS ORDERED: Ondansetron 4 MG/2 ML VIAL IVP PRN (16:10)
[2017-08-01] MEDS ORDERED: (Ipratropium/Albuterol Sulfate [Combivent Respimat In) IH PRN (16:10)
[2017-08-01] MEDS ORDERED: Acetaminophen 325 MG TABLET PO PRN (16:10)
[2017-08-01] MEDS ORDERED: *HR* HYDROcodone/Acet 5/325 mg TABLET PO PRN (16:10)
[2017-08-01] MEDS ORDERED: *HR* Metoprolol 5 MG/5 ML VIAL IVP SCH (16:10)
[2017-08-01] MEDS ORDERED: Naloxone 0.4 MG/ML INJ IVP PRN (16:10)
[2017-08-01] MEDS ORDERED: *HR* Morphine 2 MG/ML SYRINGE IVP PRN (16:10)
[2017-08-01 17:38] LABS: ABG PCO2 > 150 mmHg (35-45); ABG PO2 135 mmHg (85-104)
[2017-08-01] MEDS ORDERED: Acetaminophen IV 1,000 MG/100 ML INFUS..BTL ONE (17:50)
[2017-08-01] MEDS ORDERED: Ketorolac 30 MG/ML VIAL IVP ONE (17:53)
[2017-08-01] MEDS ORDERED: Acetaminophen IV 1,000 MG/100 ML INFUS..BTL IVPB ONE (17:53)
[2017-08-01 18:34] LABS: ABG Base Excess 2 mEq/L (-2 to 3); ABG HCO3 34 mEq/L (21-27); ABG Oxygen Saturation 99 % (95-98); ABG PCO2 96 mmHg (35-45); ABG PH 7.16 pH Units (7.32-7.45); ABG PO2 157 mmHg (85-104); ABG TCO2 37 mEq/L (20-26); Blood Gas Modality BiLevel
--- NOTE | 2017-08-01 18:51 | Anesthesia Evaluation Post Op ---
Date of Encounter: 08/01/17 Time of Encounter: 18:48 - Vital Signs Vital Signs: Vital Signs/O2 Sat/Glucose, Most Current Temp Pulse Resp BP Pulse Ox 08/01/17 18:08 91 23 103/45 96 08/01/17 17:58 97.6 F 87 20 116/83 97 08/01/17 17:48 89 16 111/66 97 08/01/17 17:38 88 16 121/70 95 08/01/17 17:28 97.3 F L 96 14 106/57 96 08/01/17 17:18 96 12 149/74 96 08/01/17 17:08 99 12 150/70 94 08/01/17 16:58 98.6 F 98 11 144/64 94 08/01/17 16:52 12 95 08/01/17 16:48 95 11 149/72 94 08/01/17 16:38 96 12 136/73 94 08/01/17 16:28 98.6 F 93 13 123/60 92 08/01/17 16:18 90 12 111/54 92 08/01/17 16:08 85 14 110/55 91 08/01/17 15:58 97.8 F 88 12 102/52 95 08/01/17 15:48 86 10 93/51 94 08/01/17 15:38 84 10 86/49 93 08/01/17 15:28 99.1 F 90 10 93/50 93 - Lungs Lungs: Clear Ascult./Percussion - Airway Airway: Non-obstructed (on BiPap) - Cardiovascular Baseline Rhythm - Mental Status Mental Status: Asleep with brisk response to light stimulation - Pain Pain Scale used: Traylor-Tran (Faces) (1) - Nausea Vomiting Nausea Vomiting: Not Present - Hydration Hydration: NPO Notes: 08/01/17 18:49 Pt remained somnolent and poorly arousable in PACU. CPAP/BiPap applied via RT. Decreased Vt noted and initial ABG obtained which revealed pCO2>150. Pt repositioned and oral airway replaced w/ BIPap for appropriate Vt and minute ventilation. Improved ABG noted at 1 hr interval. Pt noted to be more readily arousable and responsive. BiPap continued. ABG for 0 requested. Pt remains stable on floor and may be transferred to on BiPap. Impressions 08/01/17 08/01/17 17:30 18:29 ABG pH 7.00 L* 7.16 L* D ABG pCO2 > 150 H* 96 H* D ABG pO2 135 H 157 H ABG HCO3 TNP 34 H ABG Total CO2 TNP 37 H ABG O2 Saturation TNP 99 H ABG Base Excess TNP 2 08/01/17 18:51 - Discharge PostOp Status: Transfer Patient to floor (Pt) Anes Supervising Prov Stmt: Pt seen/evaluated, VSS and respiratory status improved on BiPap and pt otherwise meets criteria for discharge to floor. Tonia Dean MD
[2017-08-01] MEDS: CeFAZolin Premix DUPLEX 2,000 MG/50 ML BAG IVPB SCH (20:09)
[2017-08-01] MEDS: 0.9 % Sodium Chloride 1,000 ML IVC SCH ×2 (20:11→23:08)
[2017-08-01 20:22] LABS: ABG Base Excess 3 mEq/L (-2 to 3); ABG HCO3 34 mEq/L (21-27); ABG Oxygen Saturation 94 % (95-98); ABG PCO2 87 mmHg (35-45); ABG PO2 89 mmHg (85-104); ABG TCO2 37 mEq/L (20-26); Blood Gas Modality BIVENT; Blood Gas PEEP 5 cm H2O; Blood Gas Respiration Rate 16; Blood Gas VT 600 cc
[2017-08-01] MEDS ORDERED: hydroCHLOROthiazide 25 MG TABLET PO SCH (21:00)
[2017-08-01] MEDS ORDERED: NON-FORMULARY MEDICATION 1 EACH EACH (Oxygen [Oxygen] 2 L) NS SCH (21:00)
[2017-08-01] MEDS ORDERED: Lisinopril 20 MG TABLET PO SCH (21:00)
[2017-08-01] MEDS: DOXYLAMINE SUCCINATE 25 MG PO SCH (21:13)
[2017-08-01] MEDS: *HR* OxyCODONE Immed Rel 5 MG TABLET PO PRN (21:28)
[2017-08-01] MEDS: Aspirin Enteric Coated 81 MG Tablet PO SCH (21:28)
[2017-08-01] MEDS: hydroCHLOROthiazide 25 MG TABLET PO SCH (23:07)
[2017-08-01] MEDS: Lisinopril 20 MG TABLET PO SCH (23:07)
[2017-08-01] MEDS ORDERED: Vancomycin 1,250 MG in D5% in Water 250 ML IVPB ONE (23:30)
[2017-08-02] MEDS: CeFAZolin Premix DUPLEX 2,000 MG/50 ML BAG IVPB SCH (02:53)
[2017-08-02 05:31] LABS: BUN/Creatinine Ratio 16 (6-26); Basophils % 0.3 %; Blood Urea Nitrogen 15 mg/dL (8-26); Calcium 8.2 mg/dL (8.6-10.8); Carbon Dioxide 33 mEq/L (19-29); Chloride 97 mEq/L (98-109); Eosinophils # 0.1 K/mcL (0.0-0.6); Eosinophils % 0.8 %; Glucose 92 mg/dL (70-99); Hematocrit 41.3 % (37.5-50.1); Immature Granulocytes % 0.6 % (0-4); Lymphocytes # 0.8 K/mcL (0.6-4.6); Lymphocytes % 9.2 %; Mean Corpuscular Hemoglobin 29.6 pg (28.0-33.3); Mean Corpuscular Volume 95.4 fL (83.0-100.0); Mean Platelet Volume 8.7 fL (9.4-12.4); Monocytes # 0.9 K/mcL (0.0-1.3); Monocytes % 9.6 %; Osmolality,Calculated 282 (280-300); Platelet Count 122 K/mcL (140-400); Potassium 4.2 mEq/L (3.5-4.5); Red Blood Count 4.33 M/mcL (4.19-5.50); Red Cell Distribution Width 15.7 % (11.5-14.5); Segmented Neutrophils % 79.5 %; Sodium 136 mEq/L (136-145); eGFR For African Americans > 60 (> 60); eGFR For Non-African Americans > 60 (> 60)
[2017-08-02 05:37] LABS: Hemoglobin 12.8 g/dL (12.9-16.9)
[2017-08-02] MEDS: *HR* OxyCODONE Immed Rel 5 MG TABLET PO PRN ×2 (06:03→21:10)
[2017-08-02] MEDS: *HR* Enoxaparin 80 MG/0.8 ML SYRINGE SQ SCH ×2 (06:04→18:14)
[2017-08-02] MEDS: Gabapentin 300 MG CAPSULE PO SCH ×2 (07:42→21:09)
[2017-08-02] MEDS: Budesonide/Formoterol 160/4.5 MDI IH SCH (07:58)
[2017-08-02] MEDS: Ipratropium/Albuterol Neb 3 ML IH PRN ×2 (07:58→11:25)
[2017-08-02] MEDS ORDERED: Furosemide 20 MG/2 ML VIAL IVP ONE (09:16)
--- NOTE | 2017-08-02 10:17 | Vascular/Endovas Progress Note ---
Date of Encounter: 08/02/17 Time of Encounter: 09:25 - Assessment and plan (1) Limb ischemia Current Visit: No Status: Acute The patient has acute on chronic left lower extremity ischemia. He underwent left lower extremity thrombectomy, but was noted to have chronically occluded tibials without runoff for bypass. The patient has no signals in his left foot. His exam is unchanged since preoperatively. Will continue with pain control and lovenox today. Will reassess limb viability tomorrow. Patient may ultimately require amputation. (2) COPD (chronic obstructive pulmonary disease) Current Visit: Yes Status: Chronic Patient is currently on BIPAP. SAO2 is currently 97%. His CXR reveals no acute pathology. He is resting comfortably. Continue with breathing treatments. Pulmonology consulted for further recommendations. 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 He is requiring BIPAP at this time. His SA02 is 97%. Pain is well controlled. Vital Signs, Last 4 Hours Temp Pulse Resp BP Pulse Ox 08/02/17 09:33 16 95 08/02/17 09:03 85 08/02/17 08:58 20 91 08/02/17 08:31 108 20 91 08/02/17 07:30 111 22 88 08/02/17 07:06 99.1 F 112 20 119/54 87 - Physical Examination General: Present: No Apparent Distress HEENT: Present: Pupils equal Neck: Absent: JVD Cardiac: Present: Reg Rate and Rhythm Lungs: Present: Normal Breath Sounds Neuro: Present: Other (motor and sensory exam remain at baseline) Vascular: Present: Capillary refill delayed (left forefoot), Pulse, absent ( left foot), Pulse, diminished (pedal signals present right foot), Color/ Temperature (left forefoot cool compared to right, unchanged since preop), Surgical incisions (no hematoma, incisions clean and dry). Absent: Cyanosis Abdomen: Present: Soft - VTE Reasons for not Prescribing Prophylaxis: Not indicated-Anticoagulated or INR therapeutic Results 08/02/17 05:09 08/02/17 05:09 Lab Results, Last 24 hours 08/02/17 08/02/17 05:09 05:09 WBC 8.8 Hgb 12.8 L D Hct 41.3 Plt Count 122 L Sodium 136 Potassium 4.2 Chloride 97 L Carbon Dioxide 33 H BUN 15 Creatinine 0.91 Glucose 92 Calcium 8.2 L Consult Discharge Plan - Plan [facility]errals: [facility] [[facility] Care Provider] -
--- NOTE | 2017-08-02 10:50 | Pulmonology Consult Note ---
Date of Encounter: 08/02/17 Time of Encounter: 10:50 Assessment and Plan (1) Acute respiratory failure with hypoxia and hypercarbia Current Visit: Yes Status: Acute This is secondary to severe COPD exacerbation. Last blood gas that was done yesterday showed persistent hypercarbia and no repeat blood gas since. I agree with noninvasive positive pressure ventilation and recommend BiPAP patient is currently having difficulty tolerating this but with mask adjustment and pressure adjustment I think that this would still be effective. Continue to bleed in oxygen to keep saturation greater than 88%. Chest x-ray was reviewed and there is no acute process patient at high risk for coronary disease and heart failure especially that with preserved ejection fraction although BNP is normal today and no clear clinical evidence of gross volume overload. Patient has a high risk of further clinical deterioration agree with continued monitored in the stepdown setting. He will need follow-up with pulmonary at the time of discharge (2) COPD with acute exacerbation Current Visit: Yes Status: Acute This is severe COPD exacerbation with evidence of hypercarbia and additional noninvasive positive pressure ventilation recommend starting IV Solu-Medrol 40 mg 3 times a day. Azithromycin 500 mg on the first a 250 mg for the next 4 days. Schedule bronchodilators (duo nebs) every 4 hours with albuterol treatments every hour as needed. I will restart the patient's home Symbicort. (3) DVT prophylaxis Current Visit: Yes Status: Acute He is currently anticoagulated per vascular surgery orders (4) Tobacco abuse Current Visit: Yes Status: Chronic Tobacco cessation counseling has been given the patient nicotine replacement as needed while inpatient and at time of discharge (5) Essential hypertension Current Visit: No Status: Chronic Currently blood pressure is relatively well controlled continue to monitor continue antihypertensives (6) Limb ischemia Current Visit: No Status: Acute (7) Sleep disorder breathing Current Visit: Yes Status: Acute Hypertense primary for sleep disorder breathing in this patient and recommended outpatient polysomnogram continue nocturnal oxygen explained to the patient possibility of sleep-disordered breathing and not to drive while sleepy operate heavy machinery while sleepy or engage in activities that could cause bodily harm. History of Present Illness Consult date: 08/02/17 Requesting physician: Panchito Ayoub Reason for consult: COPD Chief complaint: Shortness of breath History of present illness: This is a 67-year-old, past medical history of COPD on 2 L oxygen at night and "as needed" also peripheral vascular disease status post multiple interventions in the past he is a current user of tobacco he presented for lower extremity pain found to have critical limb ischemia and went for Left femoral to popliteal artery bypass graft thrombectomy and Left tibial artery endarterectomy. The procedure was uneventful however postoperatively and post extubation patient had desaturation with evidence of respiratory failure requiring NIPPV. Pulmonary was consulted for further evaluation. Today he states that his breathing has been labored and he has cough productive of clear to yellowish sputum. This is been persistent over many months perhaps a little worse leading up to the time of surgery. He takes Symbicort at home along with Combivent and DuoNeb as needed. He states he has never seen a sandwich artist He smokes about a pack and a half a day and has for at least the last 50 years. 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 service in the [employer] but was stateside no significant exposures there. He snores loudly at night and naps during the day has never had a number evaluation for sleep-disordered breathing. He keeps 2 dogs at home but no exotic pets. Past Med Surg Social Fam HX - Past Medical History Medical history: COPD, DVT, hyperlipidemia, hypertension, peripheral artery disease Psychiatric history: no psych history - Past Surgical History Surgical History: vascular surgery - Social History Smoking Status: Current every day smoker Packs per day: 1.5 Smokeless Tobacco Status: No Alcohol use: none Drug use: none - Family History Mother Living Status: Hx Family Cardiac Disorders: Yes Father Family Member Ethnicity: Non- Living Status: Hx Family Cancer: Yes Medications and Allergies Aspirin [Lo-Dose Aspirin EC] 81 mg PO HS 04/16/17 [History] Budesonide/Formoterol 160/4.5 [Symbicort 160/4.5] 2 puff IH BIDR 04/16/17 [ History] Carvedilol [Coreg] 6.25 mg PO BID 04/16/17 [History] Enoxaparin [Lovenox] 80 mg SQ Q12H 04/16/17 [History] Ipratropium/Albuterol Neb [Duoneb] 3 ml IH Q6HR PRN 04/16/17 [History] Ipratropium/Albuterol Sulfate [Combivent Respimat Inhal [place]] 2 puff IH Q6H PRN 04/16/17 [History] Lisinopril [Zestril] 40 mg PO HS 04/16/17 [History] Omeprazole [PriLOSEC] 20 mg PO HS 04/16/17 [History] Simvastatin [Zocor] 40 mg PO HS 04/16/17 [History] hydroCHLOROthiazide [Hydrochlorothiazide] 25 mg PO HS 04/16/17 [History] Doxylamine Succinate [Sleep Aid] 25 mg PO HS 07/31/17 [History] Gabapentin [Neurontin] 300 mg PO BID 07/31/17 [History] Oxygen 2 l NS HS 07/31/17 [History] 3 Allergy/AdvReac Type Severity Reaction Status Date / Time bee venom protein (honey bee) Allergy Swelling Verified 04/16/17 07:30 of Lip/Tongue/Throat All Systems: A 10-system review of systems was performed and is negative for pertinent findings except as documented above in the HPI. Physical Examination Vital Signs: Vital Signs, Last 4 Hours Temp Pulse Resp BP Pulse Ox 08/02/17 09:33 16 95 08/02/17 09:03 85 08/02/17 08:58 20 91 08/02/17 08:31 108 20 91 08/02/17 07:30 111 22 88 08/02/17 07:06 99.1 F 112 20 119/54 87 General appearance: appears uncomfortable Eyes: nonicteric ENT: oropharynx dry Effort: mildly labored Auscultation: bilateral: diminished breath sounds, wheezes Cardiovascular: regular rate and rhythm Gastrointestinal: normoactive bowel sounds Integumentary: normal Extremities: no edema (Bilateral LE pulses are warm to touch pulses are weakly palpable on right status post surgery with dressings that are clean dry and intact on the left), no clubbing normal mental status, non-focal exam mood appropriate Results - Laboratory Findings CBC and BMP: 08/02/17 05:09 08/02/17 05:09 ABG ABG pH 7.20 pH Units (7.32-7.45) L* 08/01/17 20:13 ABG pCO2 87 mmHg (35-45) H* 08/01/17 20:13 ABG pO2 89 mmHg (85-104) D 08/01/17 20:13 ABG O2 Saturation 94 % (95-98) L 08/01/17 20:13 PT/INR, D-dimer PT 11.8 Seconds (9.4-12.1) 07/31/17 18:38 Abnormal lab findings: Abnormal lab results Hgb 12.8 g/dL (12.9-16.9) L D 08/02/17 05:09 MCHC 31.0 g/dL (31.6-35.5) L 08/02/17 05:09 RDW 15.7 % (11.5-14.5) H 08/02/17 05:09 Plt Count 122 K/mcL (140-400) L 08/02/17 05:09 MPV 8.7 fL (9.4-12.4) L 08/02/17 05:09 APTT 52.4 Seconds (26.0-36.0) H D 08/01/17 03:34 ABG pH 7.20 pH Units (7.32-7.45) L* 08/01/17 20:13 ABG pCO2 87 mmHg (35-45) H* 08/01/17 20:13 ABG HCO3 34 mEq/L (21-27) H 08/01/17 20:13 ABG Total CO2 37 mEq/L (20-26) H 08/01/17 20:13 ABG O2 Saturation 94 % (95-98) L 08/01/17 20:13 Chloride 97 mEq/L (98-109) L 08/02/17 05:09 Carbon Dioxide 33 mEq/L (19-29) H 08/02/17 05:09 Calcium 8.2 mg/dL (8.6-10.8) L 08/02/17 05:09 - Diagnostic Findings Chest x-ray: report reviewed, image reviewed CT scan - chest: report reviewed, image reviewed - Clinical Findings Intake & Output: Intake & Output 08/01/17 08/02/17 08/02/17 23:59 07:59 15:59 Intake Total 150 / 150 100 / 100 815 / 815 Output Total 275 / 275 0 / 0 Balance -125 / -125 100 / 100 815 / 815 Weight 93 kg Consult Discharge Plan - Plan [facility]errals: [facility] [Primary Care Provider] -
--- NOTE | 2017-08-02 10:57 | Electrocardiograph Report ---
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
[2017-08-02] MEDS ORDERED: Albuterol 2.5 MG/3 ML NEBULIZER IH PRN (11:14)
[2017-08-02] MEDS ORDERED: (Ipratropium/Albuterol Sulfate [Combivent Respimat In IH SCH (11:15)
[2017-08-02] MEDS ORDERED: Azithromycin 250 MG TABLET PO ONE (11:17)
[2017-08-02] MEDS: Budesonide/Formoterol 80/4.5 MDI IH SCH ×2 (11:33→20:42)
[2017-08-02 11:48] LABS: ABG Base Excess 7 mEq/L (-2 to 3); ABG HCO3 36 mEq/L (21-27); ABG Oxygen Saturation 86 % (95-98); ABG PCO2 73 mmHg (35-45); ABG PO2 59 mmHg (85-104); ABG TCO2 38 mEq/L (20-26)
[2017-08-02] MEDS: MethylPREDNISolone 40 MG/ML VIAL IVP SCH ×3 (11:51→21:10)
[2017-08-02] MEDS: Ipratropium/Albuterol Neb 3 ML IH SCH ×2 (16:09→20:42)
[2017-08-02] MEDS ORDERED: *HR* Metoprolol 5 MG/5 ML VIAL IVP SCH (18:00)
[2017-08-02] MEDS ORDERED: Melatonin 3 MG TABLET PO PRN (20:24)
[2017-08-02] MEDS: Lisinopril 20 MG TABLET PO SCH (21:09)
[2017-08-02] MEDS: Aspirin Enteric Coated 81 MG Tablet PO SCH (21:10)
[2017-08-02] MEDS: hydroCHLOROthiazide 25 MG TABLET PO SCH (21:11)
[2017-08-02] MEDS: DOXYLAMINE SUCCINATE 25 MG PO SCH (21:11)
[2017-08-03] MEDS: Ipratropium/Albuterol Neb 3 ML IH SCH ×4 (00:35→11:24)
[2017-08-03] MEDS: *HR* OxyCODONE Immed Rel 5 MG TABLET PO PRN ×2 (04:32→10:50)
[2017-08-03] MEDS: *HR* Enoxaparin 80 MG/0.8 ML SYRINGE SQ SCH (05:32)
[2017-08-03] MEDS: Gabapentin 300 MG CAPSULE PO SCH (07:41)
[2017-08-03] MEDS: MethylPREDNISolone 40 MG/ML VIAL IVP SCH (07:41)
[2017-08-03] MEDS: Budesonide/Formoterol 80/4.5 MDI IH SCH (07:56)
--- NOTE | 2017-08-03 08:49 | Pulmonology Progress Note ---
Date of Encounter: 08/03/17 Time of Encounter: 08:46 Assessment and Plan (1) Acute respiratory failure with hypoxia and hypercarbia Current Visit: Yes Status: Acute Continue supplemental oxygen to keep saturation greater than 80% at all times patient has home oxygen (2) COPD with acute exacerbation Current Visit: Yes Status: Acute Transition to prednisone 40 mg to complete a 5 day course Continue azithromycin 250 mg for the next 4 days Continue Symbicort twice daily dosing Combivent every 3-4 hours and DuoNeb's as needed Outpatient pulmonary follow-up Consider pulmonary rehabilitation (3) DVT prophylaxis Current Visit: Yes Status: Acute Is currently anticoagulated per vascular surgery (4) Tobacco abuse Current Visit: Yes Status: Chronic Tobacco abuse counseling given (5) Essential hypertension Current Visit: No Status: Chronic Controlled at present on antihypertensives (6) Limb ischemia Current Visit: No Status: Acute This is being followed by vascular surgery (7) Sleep disorder breathing Current Visit: Yes Status: Acute Suspect underlying MJ patient will need outpatient polysomnogram Pulmonary will sign off please call with any questions has been a pleasure to participate in the care of this patient with you Subjective Principal diagnosis: Critical Limb Ischemia Interval history: Mr. Sultana did well overnight he has received bronchodilator steroids and antimicrobial with overall improvement in his symptoms he is now having appropriate saturation on 2-3 L nasal cannula. He denies any shortness of breath at present remains afebrile blood pressures been stable he is requesting to go home Objective PUL Vital signs: Last Vital Signs Temp 98.1 F 08/03/17 07:52 Pulse 97 08/03/17 07:52 Resp 16 08/03/17 07:56 BP 138/84 08/03/17 07:52 Pulse Ox 90 08/03/17 07:56 General appearance: no acute distress Eyes: nonicteric Auscultation: bilateral: clear Cardiovascular: regular rate and rhythm Gastrointestinal: normoactive bowel sounds Extremities: other (Left leg dressing noted which is clean dry and intact) mood appropriate Results - Laboratory Findings CBC and BMP: 08/02/17 05:09 08/02/17 05:09 ABG ABG pH 7.30 pH Units (7.32-7.45) L 08/02/17 11:35 ABG pCO2 73 mmHg (35-45) H* 08/02/17 11:35 ABG pO2 59 mmHg (85-104) L 08/02/17 11:35 ABG O2 Saturation 86 % (95-98) L 08/02/17 11:35 PT/INR, D-dimer PT 11.8 Seconds (9.4-12.1) 07/31/17 18:38 Abnormal lab findings: Abnormal lab results Hgb 12.8 g/dL (12.9-16.9) L D 08/02/17 05:09 MCHC 31.0 g/dL (31.6-35.5) L 08/02/17 05:09 RDW 15.7 % (11.5-14.5) H 08/02/17 05:09 Plt Count 122 K/mcL (140-400) L 08/02/17 05:09 MPV 8.7 fL (9.4-12.4) L 08/02/17 05:09 APTT 52.4 Seconds (26.0-36.0) H D 08/01/17 03:34 ABG pH 7.30 pH Units (7.32-7.45) L 08/02/17 11:35 ABG pCO2 73 mmHg (35-45) H* 08/02/17 11:35 ABG pO2 59 mmHg (85-104) L 08/02/17 11:35 ABG HCO3 36 mEq/L (21-27) H 08/02/17 11:35 ABG Total CO2 38 mEq/L (20-26) H 08/02/17 11:35 ABG O2 Saturation 86 % (95-98) L 08/02/17 11:35 ABG Base Excess 7 mEq/L (-2 to 3) H 08/02/17 11:35 Chloride 97 mEq/L (98-109) L 08/02/17 05:09 Carbon Dioxide 33 mEq/L (19-29) H 08/02/17 05:09 Calcium 8.2 mg/dL (8.6-10.8) L 08/02/17 05:09 - Clinical Findings Intake & Output: Intake & Output 08/03/17 08/03/17 08/03/17 00:59 07:59 15:59 Output Total Balance - VTE Reasons for not Prescribing Prophylaxis: Not indicated-Anticoagulated or INR therapeutic Consult Discharge Plan - Plan [facility]errals: [facility] [Primary Care Provider] -
[2017-08-03] MEDS ORDERED: Azithromycin 250 MG TABLET PO SCH (09:00)
[2017-08-03 12:11] VITALS: BP 134/86
--- NOTE | 2017-08-03 14:03 | Vascular/Endovas Progress Note ---
Date of Encounter: 08/03/17 Time of Encounter: 09:30 - Assessment and plan (1) Limb ischemia Status: Acute The patient has acute on chronic left lower extremity ischemia. He underwent left lower extremity thrombectomy, but was noted to have chronically occluded tibials without runoff for bypass. The patient has no signals in his left foot. His exam is unchanged since preoperatively. Will continue with pain control and lovenox today. Will reassess limb viability tomorrow. Patient may ultimately require amputation. (2) COPD (chronic obstructive pulmonary disease) Status: Chronic Patient is currently on BIPAP. SAO2 is currently 97%. His CXR reveals no acute pathology. He is resting comfortably. Continue with breathing treatments. Pulmonology consulted for further recommendations. 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 He is hemodynamically stable without evidence of ongoing blood loss. - Subjective Interval history: The patient is currently resting comfortably. He is requiring BIPAP at this time. His SA02 is 97%. Pain is well controlled. Vital Signs, Last 4 Hours Temp Pulse Resp BP Pulse Ox 08/03/17 12:08 98.2 F 97 16 134/86 91 08/03/17 11:25 16 91 - Physical Examination General: Present: No Apparent Distress HEENT: Present: Pupils equal Neck: Absent: JVD, Tracheal deviation Cardiac: Present: Normal S1 and S2 Lungs: Present: Normal Breath Sounds, No Wheeze, Rales, Rhonchi Neuro: Present: No focal deficits noted Vascular: Present: Capillary refill delayed (Left lower extremity), Pulse, absent (left pedal signals absent), Surgical incisions (clean and dry). Absent : Cyanosis, Edema Abdomen: Present: Soft Skin: Present: Wound/ulcer(s) (right lower extremity ulcers stable without erythema or drainage) - VTE Reasons for not Prescribing Prophylaxis: Not indicated-Anticoagulated or INR therapeutic Results 08/02/17 05:09 08/02/17 05:09 - Imaging / Other Tests Chest Xray: report reviewed, image reviewed (no acute process) Consult Discharge Plan - Plan Instructions: Oxycodone/Acetaminophen (By mouth), Peripheral Vascular Disorders (DC) Additional Instructions: May remove bandage and shower 08/04/17. Wash woundS gently and pat to dry. Apply dry gauze to wound daily for 7 days. Wet to dry dressing changes to right leg wound daily and as needed. No tub baths or swimming until 08/26/17. Call Dr. Aoyub at [phone] with questions or concerns. Referrals: Panchito Ayoub MD [Partnered Physician] - (2 weeks, Web request sent, office to call with appointment. ) [facility] - ([facility] to call [facility] for follow [facility] appointment. ) Prescriptions: OxyCODONE/APAP 5/325 [Percocet 5/325 MG] 1 each PO Q6HR PRN #25 tablet PRN Reason: postoperative pain
--- NOTE | 2017-08-03 14:26 | Discharge Summary ---
Date of Encounter: 08/03/17 Time of Encounter: 14:15 - Discharge Diagnosis (1) Limb ischemia Priority: Primary Status: Acute Comments: The patient is postoperative day #2 after left lower extremity thrombectomy and endarterectomy. He did not have a target for bypass. He reports that his leg pain is controlled. His foot is viable with monophasic signals. He will be discharged today. (2) COPD (chronic obstructive pulmonary disease) Priority: Secondary Status: Chronic Comments: The patients oxygen requirements have returned to baseline. He denies shortness of breath. 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 He remained hemodynamically stable without evidence of ongoing blood loss. - Discharge Medications Prescriptions: OxyCODONE/APAP 5/325 [Percocet 5/325 MG] 1 each PO Q6HR PRN #25 tablet PRN Reason: postoperative pain Home Medications: Aspirin [Lo-Dose Aspirin EC] 81 mg PO HS 04/16/17 [History] Budesonide/Formoterol 160/4.5 [Symbicort 160/4.5] 2 puff IH BIDR 04/16/17 [ History] Carvedilol [Coreg] 6.25 mg PO BID 04/16/17 [History] Enoxaparin [Lovenox] 80 mg SQ Q12H 04/16/17 [History] Ipratropium/Albuterol Neb [Duoneb] 3 ml IH Q6HR PRN 04/16/17 [History] Ipratropium/Albuterol Sulfate [Combivent Respimat Inhal [place]] 2 puff IH Q6H PRN 04/16/17 [History] Lisinopril [Zestril] 40 mg PO HS 04/16/17 [History] Omeprazole [PriLOSEC] 20 mg PO HS 04/16/17 [History] Simvastatin [Zocor] 40 mg PO HS 04/16/17 [History] hydroCHLOROthiazide [Hydrochlorothiazide] 25 mg PO HS 04/16/17 [History] Doxylamine Succinate [Sleep Aid] 25 mg PO HS 07/31/17 [History] Gabapentin [Neurontin] 300 mg PO BID 07/31/17 [History] OxyCODONE/APAP 5/325 [Percocet 5/325 MG] 1 each PO Q6HR PRN #25 tablet 08/03/17 [Rx] Oxygen 2 l NS CONT #1 08/03/17 [Rx] Allergies/Adverse Reactions: 3 Allergy/AdvReac Type Severity Reaction Status Date / Time bee venom protein (honey bee) Allergy Swelling Verified 04/16/17 07:30 of Lip/Tongue/Throat Date of admission: 08/01/17 12:47 Primary care physician: PCP [place] Consults: 08/02/17 10:06 Consult to Pulmonology [CONS] Routine Consulting Provider: [facility] [place] Reason for Consult: COPD, increased O2 requirements. Spoke with Dr. Noel. Time Notified: 09:50 Call Completed: Yes Procedure(s) Performed: Left lower extremity thrombectomy and endarterectomy Discharging clinician: Panchito Ayoub Anticipated date of discharge: 08/03/17 - Patient Status Disposition: Home, Self-Care Condition: Good Functional capacity at discharge: independent ambulation Overall status at discharge: patient is back to baseline - Discharge Instructions Instructions: Oxycodone/Acetaminophen (By mouth), Peripheral Vascular Disorders (DC) Follow Up With: Panchito Ayoub MD [Partnered Physician] - (2 weeks, Web request sent, office to call with appointment. ) [place],PCP [Primary Care Provider] - (Patient instructed to call [place] for follow up appointment. ) Additional Instructions: May remove bandage and shower 08/04/17. Wash woundS gently and pat to dry. Apply dry gauze to wound daily for 7 days. Wet to dry dressing changes to right leg wounds daily and as needed. No tub baths or swimming until 08/26/17. Call Dr. Ayoub at [phone] with questions or concerns. - Diet and Activity Activity: increase activity as tolerated Diet: advance to your usual diet - Hospital Course Hospital course: Mr. Sultana is a 67 year old male with a long history of severe peripheral vascular disease. He was found to have acute on chronic left lower extremity peripheral vascular disease. He was admitted through the ER. He was taken to the OR for graft thrombectomy and tibial endarterectomy. His graft was opened, but he had no outflow due to chronic distal disease. Tibial endarterctomy did not reveal a target for bypass. He also underwent debridement of right conte and foot ulcers. The patient was placed on the floor and initially required Bipap. Pulmonology was consulted and he was wened from his oxygen. He was noted to have monophasic pedal signals and his foot was warm and viable on postoperative day #2. He was discharged in stable condition. He was informed that he has no additional options for left lower extremity revascularization and that progression of his disease will likely require amputation. Time spent discussing smoking cessation with patient: 3 to 10 minutes - Time Spent with Patient Total time spent providing and/or coordinating discharge services: Exam Vital Signs, Last 4 Hours Temp Pulse Resp BP Pulse Ox 08/03/17 12:08 98.2 F 97 16 134/86 91 08/03/17 11:25 16 91 General: Present: Conversant, No Apparent Distress HEENT: Present: Pupils equal Cardiac: Present: Reg Rate and Rhythm Lungs: Present: Normal Breath Sounds, No Wheeze, Rales, Rhonchi Neuro: Present: Alert and responsive, No focal deficits noted Abdomen: Present: Soft Vascular: Present: Normal capillary refill, Pulse, diminished (pedal signals monophasic), Surgical incisions (clean and dry without erythema or drainage). Absent: Edema Skin: Present: No rashes noted on visualized skin, Wound/ulcer(s) (right conte and foot chronic wounds with viable margins and no erythema) Musculoskeletal: Present: Other (compartments soft) - VTE Reasons for not Prescribing Prophylaxis: Not indicated-Anticoagulated or INR therapeutic
== END 2017-08-03 15:01 | disposition home or self-care (01) | DRG 252 ==
LOC: 2NNU 17:19 → EMEROO 17:19 → 2NNU 19:49
PROVIDERS: ADMIT Surgery; ATTEND Surgery

== ENCOUNTER 2017-09-02 14:37 | Inpatient (IN) ==
--- NOTE | 2017-09-02 18:26 | Vascular/Endovasc Consult Note ---
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 He has undergone multiple interventions in the past including bilateral femoral to popliteal artery bypass. He has required graft thrombectomy and recently was unable to be revascularized after acute on chronic left lower extremity ischemia. The patient has chronic wounds on his bilateral lower extremities. He has previously undergone debridement of his right calf wound. His left incisions are healing well. his right calf wound has viable margins. He has no signs of acute limb ischemia at this time. He has no clinical evidence of abscess formation. Recommend daily dressing changes to wound with Santyl and Gentamicin ointment. He has been previously advised that further ischemic changes in his extremities may require amputation. Qualifiers: Lower extremity ulceration location: other part of foot - History of Present Illness Consult date: 09/02/17 Requesting physician: Moisés Trevizo Consult reason: PVD with ulceration Chief complaint: Bilateral lower extermity ulcers History of present illness: Mr. Sultana is a 67 year old male With a history of COPD hypertension hyperlipidemia, peripheral vascular disease and a hypercoagulable state. The patient has undergone multiple vascular procedures. He recently had acute on chronic left lower extremity ischemia and underwent thrombectomy. The patient did not have any further target for bypass. Despite this, his surgical incisions have been healing. He has chronic wound on his bilateral feet and right leg. He has previously undergone debridement. He denies any fevers or chills. He was transferred from the [facility] today due to respiratory difficulty. He responds appropriately. He has labored breathing on BIPAP. He denies chest pain. Past Med Surg Social Fam HX - Past Medical History Medical history: COPD, DVT, hyperlipidemia, hypertension, peripheral artery disease Psychiatric history: no psych history - Past Surgical History Surgical History: vascular surgery - Social History Smoking Status: Current every day smoker Smokeless Tobacco Status: No Alcohol use: none Drug use: none - Family History Mother Living Status: Hx Family Cardiac Disorders: Yes Father Family Member Ethnicity: Non- Living Status: Hx Family Cancer: Yes Medications and Allergies Aspirin [Lo-Dose Aspirin EC] 81 mg PO DAILY 04/16/17 [History] Budesonide/Formoterol 160/4.5 [Symbicort 160/4.5] 1 puff IH BIDR 04/16/17 [ History] Carvedilol [Coreg] 6.25 mg PO BID 04/16/17 [History] Ipratropium/Albuterol Neb [Duoneb] 3 ml IH Q4H PRN 04/16/17 [History] Lisinopril [Zestril] 40 mg PO HS 04/16/17 [History] Omeprazole [PriLOSEC] 20 mg PO DAILY 04/16/17 [History] Simvastatin [Zocor] 40 mg PO HS 04/16/17 [History] hydroCHLOROthiazide [Hydrochlorothiazide] 25 mg PO DAILY 04/16/17 [History] Gabapentin [Neurontin] 300 mg PO TID 07/31/17 [History] Enoxaparin [Lovenox] 40 mg SQ DAILY 09/02/17 [History] Nicotine Patch [Nicoderm] 21 mg TD DAILY 09/02/17 [History] Oxygen 3 l NS CONT 09/02/17 [History] Piperacillin/Tazobactam [Zosyn] 3.375 gm IVPB Q6H 09/02/17 [History] Vancomycin/0.9 % Sod Chloride [Vanco 1.5 gm/250 ml-0.9% NaCl] 1.5 gm IVPB Q12H 09/02/17 [History] traZODone [TraZODone] 50 mg PO HS 09/02/17 [History] 3 Allergy/AdvReac Type Severity Reaction Status Date / Time bee venom protein (honey bee) Allergy Swelling Verified 08/14/17 14:06 of Lip/Tongue/Throat All Systems Review: A 10-system review of systems was performed and is negative for pertinent findings except as documented above in the HPI. Exam Vital Signs, Last 4 Hours Resp Pulse Ox 09/02/17 18:03 20 98 General: Present: No Apparent Distress HEENT: Present: Pupils equal Neck: Absent: JVD Cardiac: Present: Reg Rate and Rhythm, Normal S1 and S2 Lungs: Present: Other (breath sounds bilaterally, scattered wheeze) Neuro: Present: No focal deficits noted Abdomen: Present: Soft Vascular: Present: Normal capillary refill, Pulse, absent (pedal signals are present bilaterally), Surgical incisions (incisions healing, jose remain in place). Absent: Cyanosis, Edema Skin: Present: No rashes noted on visualized skin (stasis dermatitis at bilateral legs), Wound/ulcer(s) (right leg wound with viable margins, tissue healthy without erythema or drainage, bialteral foot wounds without erythema, fluctuance or drainage) Consult Discharge Plan - Plan [facility]errals: [facility] [Primary Care Provider] -
[2017-09-02] MEDS ORDERED: Nitroglycerin 0.4 MG TAB.SUBL SL PRN (22:21)
[2017-09-02] MEDS ORDERED: Albuterol 2.5 MG/3 ML NEBULIZER IH PRN (22:21)
[2017-09-02] MEDS ORDERED: Ondansetron 4 MG/2 ML VIAL IVP PRN (22:21)
[2017-09-02] MEDS ORDERED: Acetaminophen 325 MG TABLET PO PRN (22:23)
[2017-09-02] MEDS ORDERED: Naloxone 0.4 MG/ML INJ IVP PRN (22:23)
[2017-09-02] MEDS ORDERED: methylPREDNISolone 125 MG/2 ML VIAL IVP ONE (22:41)
[2017-09-02] MEDS: Ipratropium/Albuterol Neb 3 ML IH SCH (22:52)
[2017-09-02] MEDS ORDERED: Vancomycin 1,000 MG in D5% in Water 250 ML IVPB SCH (23:00)
[2017-09-02 23:02] LABS: Basophils % 0.5 %; Eosinophils # 0.2 K/mcL (0.0-0.6); Eosinophils % 2.1 %; Hematocrit 40.6 % (37.5-50.1); Hemoglobin 12.6 g/dL (12.9-16.9); Immature Granulocytes % 0.9 % (0-4); Lymphocytes # 0.7 K/mcL (0.6-4.6); Lymphocytes % 8.7 %; Mean Corpuscular Hemoglobin 29.7 pg (28.0-33.3); Mean Corpuscular Volume 95.8 fL (83.0-100.0); Mean Platelet Volume 8.8 fL (9.4-12.4); Monocytes # 0.7 K/mcL (0.0-1.3); Monocytes % 9.3 %; Neutrophils # 6.2 K/mcL (1.6-8.9); Platelet Count 162 K/mcL (140-400); Red Blood Count 4.24 M/mcL (4.19-5.50); Segmented Neutrophils % 78.5 %
[2017-09-02] MEDS: *HR* Heparin 5,000 UNIT/ML VIAL SQ SCH (23:05)
[2017-09-02] MEDS: Gentamicin Oint 15 GM TUBE TP SCH (23:06)
[2017-09-02] MEDS: 0.9 % Sodium Chloride 1,000 ML IVC SCH (23:06)
[2017-09-02] MEDS: Piperacillin/Tazobactam 3.375 GM/200 ML BAG IVPB SCH (23:06)
[2017-09-02 23:16] LABS: Alanine Aminotransferase 14 Units/L (0-55); Albumin/Globulin Ratio 0.8 (1.1-2.2); Alkaline Phosphatase 42 Units/L (38-126); Aspartate Amino Transferase 19 Units/L (5-34); BUN/Creatinine Ratio 18 (6-26); Bilirubin,Total 0.4 mg/dL (0.2-1.2); Blood Urea Nitrogen 12 mg/dL (8-26); Calcium 9.3 mg/dL (8.6-10.8); Carbon Dioxide 39 mEq/L (19-29); Chloride 93 mEq/L (98-109); Glucose 89 mg/dL (70-99); Osmolality,Calculated 291 (280-300); Potassium 3.9 mEq/L (3.5-4.5); Sodium 141 mEq/L (136-145); eGFR For African Americans > 60 (> 60); eGFR For Non-African Americans > 60 (> 60)
[2017-09-03] MEDS ORDERED: methylPREDNISolone 125 MG/2 ML VIAL IVP SCH
[2017-09-03] MEDS ORDERED: Piperacillin/Tazobactam 3.375 GM in D5% in Water (Mini-Bag+) 100 ML IVPB SCH
[2017-09-03] MEDS: Vancomycin 1,250 MG in D5% in Water 250 ML IVPB SCH ×2 (00:08→11:07)
[2017-09-03] MEDS: *HR* Morphine 2 MG/ML SYRINGE IVP PRN ×3 (01:58→17:36)
--- NOTE | 2017-09-03 02:22 | Internal Med History&Physical ---
Date of Encounter: 09/02/17 Time of Encounter: 20:00 Assessment and Plan (1) Acute respiratory failure with hypoxia and hypercarbia Current visit: Yes Status: Acute Secondary to COPD exacerbation and infection. Plan as outlined under those headings. He seems amazingly stable considering his ABGs are very poor. (2) COPD with acute exacerbation Current visit: Yes Status: Acute Start IV steroids due to his Mucinex and IV antibiotics with supplemental oxygen (3) Essential hypertension Current visit: Yes Status: Chronic Continue home medication daily monitor Internal Medicine - H&P: HPI Chief complaint: Shortness of breath Admitted From: Home Plans for Post Hospital Care: Home History of present illness: Mr. Sultana is a 67 year old male is a and was transferred from [place] for respiratory failure. He has advanced COPD but unfortunately he still smokes. He is presented. Try cough and dyspnea has been going on for several days and got worsened to a point that he could not stay home. Patient is a very poor historian and he did not provide me much detail. He denies any chest pain headache neck pain and abdominal pain nausea vomiting diarrhea dysuria urgency frequency hematuria and hematochezia and hematemesis melena or any of those symptoms though. Past Med Surg Social Fam HX - Past Medical History Medical history: COPD, DVT, hyperlipidemia, hypertension, peripheral artery disease Psychiatric history: no psych history - Past Surgical History Surgical History: vascular surgery - Social History Smoking Status: Current every day smoker Smokeless Tobacco Status: No Alcohol use: none Drug use: none - Family History Mother Living Status: Hx Family Cardiac Disorders: Yes Father Family Member Ethnicity: Non- Living Status: Hx Family Cancer: Yes Internal Medicine - H&P: Meds Aspirin [Lo-Dose Aspirin EC] 81 mg PO DAILY 04/16/17 [History] Budesonide/Formoterol 160/4.5 [Symbicort 160/4.5] 1 puff IH BIDR 04/16/17 [ History] Carvedilol [Coreg] 6.25 mg PO BID 04/16/17 [History] Ipratropium/Albuterol Neb [Duoneb] 3 ml IH Q4H PRN 04/16/17 [History] Lisinopril [Zestril] 40 mg PO HS 04/16/17 [History] Omeprazole [PriLOSEC] 20 mg PO DAILY 04/16/17 [History] Simvastatin [Zocor] 40 mg PO HS 04/16/17 [History] hydroCHLOROthiazide [Hydrochlorothiazide] 25 mg PO DAILY 04/16/17 [History] Gabapentin [Neurontin] 300 mg PO TID 07/31/17 [History] Enoxaparin [Lovenox] 40 mg SQ DAILY 09/02/17 [History] Nicotine Patch [Nicoderm] 21 mg TD DAILY 09/02/17 [History] Oxygen 3 l NS CONT 09/02/17 [History] Piperacillin/Tazobactam [Zosyn] 3.375 gm IVPB Q6H 09/02/17 [History] Vancomycin/0.9 % Sod Chloride [Vanco 1.5 gm/250 ml-0.9% NaCl] 1.5 gm IVPB Q12H 09/02/17 [History] traZODone [TraZODone] 50 mg PO HS 09/02/17 [History] 3 Allergy/AdvReac Type Severity Reaction Status Date / Time bee venom protein (honey bee) Allergy Swelling Verified 08/14/17 14:06 of Lip/Tongue/Throat All Systems PM: A 10-system review of systems was performed and is negative for pertinent findings except as documented above in the HPI. - Constitutional Constitutional: no chills, no fever(s), no night sweats - EENT Eyes: no change in vision, no discharge, no pain, no photophobia Ears: no ear discharge, no ear pain, no tinnitus Nose, mouth and throat: no dysphagia, no nasal discharge, no neck pain, no sore throat - Cardiovascular Cardiovascular ROS IM: no chest pain, no diaphoresis, no dyspnea, no lightheadedness, no palpitations, no syncope - Respiratory Respiratory: cough, dyspnea, wheezing, no excessive phlegm production - Gastrointestinal Gastrointestinal: no abdominal pain, no diarrhea, no hematemesis, no hematochezia, no melena, no nausea, no vomiting - Musculoskeletal Musculoskeletal ROS IM: no numbness, no tingling - Integumentary Integumentary IM: no rash, no unusual bruising - Neurological Neurological ROS: no confusion, no convulsions, no focal weakness, no numbness, no tingling, no tremor(s) - Hematologic/Lymphatic Hematologic/Lymphatic: no easy bruising - Constitutional Vitals: Temp Pulse Resp BP Pulse Ox 98.8 F 91 25 143/74 97 09/03/17 00:32 09/03/17 00:55 09/03/17 00:55 09/03/17 00:32 09/03/17 00:55 - Head Head exam: Present: atraumatic, normocephalic - Eye Eye exam: Present: PERRL, conjuntiva pink, sclera anicteric Pupils: Present: PERRL - Neck Neck exam general surgery: Present: supple, trachea midline. Absent: lymphadenopathy - Respiratory Respiratory exam: Present: decreased breath sounds, prolonged expiratory phase, wheezes. Absent: accessory muscle use, rales, rhonchi - Cardiovascular Cardiovascular exam: Present: RRR, +S1, +S2. Absent: diastolic murmur, gallop, rubs, systolic murmur - GI/Abdominal GI/Abdominal exam: Present: normal bowel sounds, soft, no peritoneal signs. Absent: distended, tenderness - Extremities Exam Extremities exam: Present: warm, radial pulses palpable and symmetrical. Absent : calf tenderness, cyanotic, pedal edema - Neurological Exam Neurological exam: Present: CN II-XII intact, oriented X3, no focal deficits. Absent: pronater drift, facial droop, speech deficit - Skin Skin exam: Present: dry, intact Internal Med - H&P Results - Labs CBC & Chem 7: 09/02/17 22:45 09/02/17 22:45 Labs: Short CBC 09/02/17 Range/Units 22:45 WBC 7.9 (4.3-11.1) K/mcL Hgb 12.6 L (12.9-16.9) g/dL Hct 40.6 (37.5-50.1) % Plt Count 162 (140-400) K/mcL Neutrophils # 6.2 (1.6-8.9) K/mcL BMP 09/02/17 22:45 Sodium 141 Potassium 3.9 Chloride 93 L Carbon Dioxide 39 H BUN 12 Creatinine 0.67 L Glucose 89 Calcium 9.3 Liver Function 09/02/17 Range/Units 22:45 Total Bilirubin 0.4 (0.2-1.2) mg/dL AST 19 (5-34) Units/L ALT 14 (0-55) Units/L Alkaline Phosphatase 42 (38-126) Units/L Albumin 3.0 L (3.5-5.0) g/dL
[2017-09-03 02:41] LABS: ABG Base Excess 12 mEq/L (-2 to 3); ABG HCO3 43 mEq/L (21-27); ABG Oxygen Saturation 98 % (95-98); ABG PCO2 97 mmHg (35-45); ABG PH 7.26 pH Units (7.32-7.45); ABG PO2 122 mmHg (85-104); ABG TCO2 46 mEq/L (20-26)
[2017-09-03] MEDS: 0.9 % Sodium Chloride 1,000 ML IVC SCH ×2 (02:42→12:12)
[2017-09-03] MEDS: Ipratropium/Albuterol Neb 3 ML IH SCH ×4 (03:46→22:10)
[2017-09-03 04:40] LABS: Bilirubin,Urine Negative (Negative); Blood,Urine Trace (Negative); Clarity,Urine Clear (Clear); Color,Urine Yellow (Yellow); Glucose,Urine (UA) Normal (Normal); Ketones,Urine Negative (Negative); Leukocyte Esterase,Urine Negative (Negative); Nitrite,Urine Negative (Negative); Protein,Urine Negative (Neg-Trace); Specific Gravity,Urine 1.022 (1.010-1.025); Urobilinogen,Urine Normal (Normal)
[2017-09-03 04:42] LABS: Bacteria,Urine None Seen per hpf (None-Few); Hyaline Casts,Urine None Seen per lpf (None-Few); Squamous Epithelial Cell,Urine Few per lpf (None-Few); WBC,Urine 0-3 per hpf (0-3)
[2017-09-03 07:06] LABS: Basophils % 0.4 %; Eosinophils % 0.3 %; Hemoglobin 12.2 g/dL (12.9-16.9); Immature Granulocytes % 1.3 % (0-4); Lymphocytes # 0.3 K/mcL (0.6-4.6); Lymphocytes % 3.4 %; Mean Corpuscular HGB Conc 30.5 g/dL (31.6-35.5); Mean Corpuscular Hemoglobin 29.2 pg (28.0-33.3); Mean Corpuscular Volume 95.7 fL (83.0-100.0); Mean Platelet Volume 9.5 fL (9.4-12.4); Monocytes # 0.2 K/mcL (0.0-1.3); Monocytes % 2.7 %; Neutrophils # 6.9 K/mcL (1.6-8.9); Platelet Count 157 K/mcL (140-400); Red Blood Count 4.18 M/mcL (4.19-5.50); Red Cell Distribution Width 16.6 % (11.5-14.5); Segmented Neutrophils % 91.9 %
[2017-09-03 07:16] LABS: Alanine Aminotransferase 14 Units/L (0-55); Albumin 2.8 g/dL (3.5-5.0); Albumin/Globulin Ratio 0.7 (1.1-2.2); Alkaline Phosphatase 42 Units/L (38-126); Aspartate Amino Transferase 14 Units/L (5-34); BUN/Creatinine Ratio 15 (6-26); Bilirubin,Total 0.5 mg/dL (0.2-1.2); Blood Urea Nitrogen 10 mg/dL (8-26); Calcium 8.7 mg/dL (8.6-10.8); Carbon Dioxide 37 mEq/L (19-29); Chloride 90 mEq/L (98-109); Glucose 125 mg/dL (70-99); Osmolality,Calculated 287 (280-300); Sodium 138 mEq/L (136-145); Total Protein 6.8 g/dL (6.0-8.3); eGFR For African Americans > 60 (> 60); eGFR For Non-African Americans > 60 (> 60)
[2017-09-03] MEDS: methylPREDNISolone 125 MG/2 ML VIAL IVP SCH ×3 (08:08→22:41)
[2017-09-03] MEDS: Piperacillin/Tazobactam 3.375 GM/200 ML BAG IVPB SCH ×2 (08:09→14:51)
[2017-09-03] MEDS: *HR* Heparin 5,000 UNIT/ML VIAL SQ SCH ×3 (08:09→14:51)
[2017-09-03 08:11] LABS: ABG Base Excess 12 mEq/L (-2 to 3); ABG HCO3 42 mEq/L (21-27); ABG Oxygen Saturation 99 % (95-98); ABG PCO2 90 mmHg (35-45); ABG PH 7.28 pH Units (7.32-7.45); ABG PO2 137 mmHg (85-104); ABG TCO2 45 mEq/L (20-26)
[2017-09-03] MEDS ORDERED: Aminoglycoside Consult 1 EACH MC ONE (08:35)
--- NOTE | 2017-09-03 08:52 | Internal Med Progress Note ---
Date of Encounter: 09/03/17 Time of Encounter: 09:00 - Assessment and plan (1) COPD (chronic obstructive pulmonary disease) Current Visit: No Status: Chronic Assessment and plan: Will keep on IV solumedrol. No weaning today. c/w nebs treatments. check STAT CXR. Repeat ABG at noon. Depending on that, will either wean off bipap or c/s pulm Qualifiers: COPD type: emphysema Emphysema type: panlobular Qualified Code(s): J43.1 - Panlobular emphysema (2) Peripheral vascular disease Current Visit: No Status: Chronic Assessment and plan: Seen by vascular. No surgical needs. c/w IV abx for possible LE cellulites. (3) Smoking Current Visit: No Status: Chronic Assessment and plan: will place a nicotine patch (4) DVT prophylaxis Current Visit: Yes Status: Acute Assessment and plan: heparin SQ - Subjective Interval history: No acute events. Patient wants to leave. He is still on Bipap and retaining CO2. He is chronically on 2 L O2 from what I understand. He did not want to communicate much - Constitutional Vitals: Temp Pulse Resp BP Pulse Ox 98.3 F 90 15 146/79 98 09/03/17 07:50 09/03/17 08:23 09/03/17 07:50 09/03/17 07:50 09/03/17 07:50 Exam: GEN: On bipap CVS: RRR. S1, S2, No m/r/g RESP: diminshed. Scattered wheezes ABD: soft, NT, ND, +BS EXT: No edema. 2+ DP. Multiple areas of redness in the LE and ulcerations. No open wounds. No drainage. Some parts are wrapped per vascular NEURO: Nonfocal Internal Medicine: Result - Labs CBC & Chem 7: 09/03/17 05:59 09/03/17 05:59 Labs: Short CBC 09/02/17 09/03/17 Range/Units 22:45 05:59 WBC 7.9 7.5 (4.3-11.1) K/mcL Hgb 12.6 L 12.2 L (12.9-16.9) g/dL Hct 40.6 40.0 (37.5-50.1) % Plt Count 162 157 (140-400) K/mcL Neutrophils # 6.2 6.9 (1.6-8.9) K/mcL BMP 09/02/17 09/03/17 22:45 05:59 Sodium 141 138 Potassium 3.9 4.0 Chloride 93 L 90 L Carbon Dioxide 39 H 37 H BUN 12 10 Creatinine 0.67 L 0.67 L Glucose 89 125 H Calcium 9.3 8.7 Liver Function 09/02/17 09/03/17 Range/Units 22:45 05:59 Total Bilirubin 0.4 0.5 (0.2-1.2) mg/dL AST 19 14 (5-34) Units/L ALT 14 14 (0-55) Units/L Alkaline Phosphatase 42 42 (38-126) Units/L Albumin 3.0 L 2.8 L (3.5-5.0) g/dL Urine 09/03/17 Range/Units 04:15 Urine Color Yellow (Yellow) Urine Clarity Clear (Clear) Urine pH 6.0 (5.0-8.0) pH Units Ur Specific [place] 1.022 (1.010-1.025) Urine Protein Negative (Neg-Trace) mg/dL Urine Glucose (UA) Normal (Normal) mg/dL - ABG Interpretation ABG results: ABG ABG pH 7.28 pH Units (7.32-7.45) L 09/03/17 08:02 ABG pCO2 90 mmHg (35-45) H* 09/03/17 08:02 ABG pO2 137 mmHg (85-104) H 09/03/17 08:02 ABG O2 Saturation 99 % (95-98) H 09/03/17 08:02 Consult Discharge Plan - Plan [facility]errals: [facility] [Primary Care Provider] -
[2017-09-03] MEDS: Nicotine 21 MG PATCH.TD24 TD SCH (10:38)
[2017-09-03] MEDS: Gentamicin Oint 15 GM TUBE TP SCH (12:11)
[2017-09-03 12:14] LABS: ABG Base Excess 13 mEq/L (-2 to 3); ABG HCO3 43 mEq/L (21-27); ABG Oxygen Saturation 97 % (95-98); ABG PCO2 88 mmHg (35-45); ABG PO2 102 mmHg (85-104); ABG TCO2 46 mEq/L (20-26)
--- NOTE | 2017-09-03 14:15 | Pulmonology Consult Note ---
Date of Encounter: 09/03/17 Time of Encounter: 14:14 Assessment and Plan (1) Acute respiratory failure with hypoxia and hypercarbia Current Visit: Yes Status: Acute This is secondary to COPD exacerbation with strong suspicion of sleep disorder breathing likely obesity hypoventilation syndrome. Continue supplemental oxygen to keep saturation greater than 88-92% at all times With noninvasive positive pressure ventilation I would change BiPAP to EPAP ratio to 18 over for with enough oxygen bleed to keep saturation greater than 88 %. He should wear this for 50% to 75% of the time during the day for the next 24 hours and 100% of the time at night. Herminio (2) COPD with acute exacerbation Current Visit: Yes Status: Acute Possibly related to upper respiratory tract infection versus chronically suboptimally treated COPD with continued tobacco abuse. Did not see any clear radiographic clinical or laboratory evidence of pneumonia 3 with antimicrobials but would de-escalate from broad-spectrum coverage for hospital associated pneumonia to azithromycin to Complete 5 day course I have added a respiratory infectious panel Agree with IV steroids ideally this would be 40 mg IV 3 times a day with transitioned to enteral formulation within the next 24-48 hours based upon clinical course He needs more frequent bronchodilator therapy I would schedule duo nebs every 6 hours with short acting beta agonist to be added every 2 hours as needed resart home symbicort 160/4.5 2puff BID He will need outpatient pulmonary follow-up at the [facility] or in our clinic at [place] (3) Sleep disorder breathing Current Visit: No Status: Acute I suspicion for sleep-disordered breathing recommend qualification for BiPAP at the time of discharge with PSG on BiPAP as an outpatient (4) Tobacco abuse Current Visit: No Status: Chronic Smoking cessation encouraged patient currently has a nicotine patch while inpatient (5) Pleural effusion Current Visit: Yes Status: Acute Patient has small bilateral pleural effusions on chest x-ray which is concerning to me for pulmonary vascular congestion he is at high risk for heart failure with preserved ejection fraction I have added on a BNP to his labs and recommend formal echocardiogram. Recommend stopping IV fluids. Consider gentle diuresis with goal -1/2-1 L over the next 24 hours History of Present Illness Consult date: 09/03/17 Requesting physician: Kin Isabel Reason for consult: COPD Chief complaint: Shortness of Breath History of present illness: This is a 67-year-old gentleman with past medical history of long-standing COPD suspected obstructive sleep apnea obesity hypoventilation syndrome who presented from the [facility] for severe shortness of breath and hypoxic hypercarbic respiratory failure. Been diagnosed with a COPD exacerbation has been treated with noninvasive positive pressure ventilation IV steroids bronchodilators and antimicrobials despite these interventions his had a slow improvement and remains on BiPAP for large portions of the day and night. I examined the patient his was at bedside who works at in the respiratory division over at the [facility] and the patient who was off BiPAP at the time was able to converse relatively easily he says that this cannikin out of the blue denied any sick contacts cough up her respiratory symptoms etc. He continues to smoke and he thinks it that is probably affecting his breathing and possibly contributed to his exacerbation.. He is compliant with home Symbicort and has bronchodilators he does not have BiPAP at home. He also has chronic use of oxygen. Chest x-ray showed small bilateral effusions without evidence of pneumonia ABG shows hypoxia and respiratory acidosis which is reasonably stable over the last 24 hours. He did not present with leukocytosis lactate was normal. Of note he has long-standing peripheral vascular disease and at last admission had undergone revascularization he suffers from ischemic wound ulcers which are being managed in part by vascular surgery. He is chronically anticoagulated currently with Lovenox Past Med Surg Social Fam HX - Past Medical History Medical history: COPD, DVT, hyperlipidemia, hypertension, peripheral artery disease Psychiatric history: no psych history - Past Surgical History Surgical History: vascular surgery - Social History Smoking Status: Current every day smoker Smokeless Tobacco Status: No Alcohol use: none Drug use: none - Family History Mother Living Status: Hx Family Cardiac Disorders: Yes Father Family Member Ethnicity: Non- Living Status: Hx Family Cancer: Yes Medications and Allergies Aspirin [Lo-Dose Aspirin EC] 81 mg PO DAILY 04/16/17 [History] Budesonide/Formoterol 160/4.5 [Symbicort 160/4.5] 1 puff IH BIDR 04/16/17 [ History] Carvedilol [Coreg] 6.25 mg PO BID 04/16/17 [History] Ipratropium/Albuterol Neb [Duoneb] 3 ml IH Q4H PRN 04/16/17 [History] Lisinopril [Zestril] 40 mg PO HS 04/16/17 [History] Omeprazole [PriLOSEC] 20 mg PO DAILY 04/16/17 [History] Simvastatin [Zocor] 40 mg PO HS 04/16/17 [History] hydroCHLOROthiazide [Hydrochlorothiazide] 25 mg PO DAILY 04/16/17 [History] Gabapentin [Neurontin] 300 mg PO TID 07/31/17 [History] Enoxaparin [Lovenox] 40 mg SQ DAILY 09/02/17 [History] Nicotine Patch [Nicoderm] 21 mg TD DAILY 09/02/17 [History] Oxygen 3 l NS CONT 09/02/17 [History] Piperacillin/Tazobactam [Zosyn] 3.375 gm IVPB Q6H 09/02/17 [History] Vancomycin/0.9 % Sod Chloride [Vanco 1.5 gm/250 ml-0.9% NaCl] 1.5 gm IVPB Q12H 09/02/17 [History] traZODone [TraZODone] 50 mg PO HS 09/02/17 [History] 3 Allergy/AdvReac Type Severity Reaction Status Date / Time bee venom protein (honey bee) Allergy Swelling Verified 08/14/17 14:06 of Lip/Tongue/Throat All Systems: A 10-system review of systems was performed and is negative for pertinent findings except as documented above in the HPI. Physical Examination Vital Signs: Vital Signs, Last 4 Hours Pulse Resp BP Pulse Ox 09/03/17 12:16 107 22 97 09/03/17 11:51 98 20 149/78 97 09/03/17 10:51 15 97 09/03/17 10:17 113 19 98 General appearance: no acute distress Eyes: nonicteric ENT: oropharynx dry Effort: mildly labored Auscultation: bilateral: diminished breath sounds, wheezes (Faint expiratory wheeze with prolonged expiratory phase general. Poor air movement related to presumed bronchospasm) Cardiovascular: regular rate and rhythm Gastrointestinal: normoactive bowel sounds, soft, non-tender Extremities: other (Chronic ischemic changes of the lower extremity although the legs are warm to touch he has bilateral lower extremity edema which is symmetric) normal mental status, non-focal exam mood appropriate Results - Laboratory Findings CBC and BMP: 09/03/17 05:59 09/03/17 05:59 ABG ABG pH 7.30 pH Units (7.32-7.45) L 09/03/17 12:05 ABG pCO2 88 mmHg (35-45) H* 09/03/17 12:05 ABG pO2 102 mmHg (85-104) 09/03/17 12:05 ABG O2 Saturation 97 % (95-98) 09/03/17 12:05 Abnormal lab findings: Abnormal lab results RBC 4.18 M/mcL (4.19-5.50) L 09/03/17 05:59 Hgb 12.2 g/dL (12.9-16.9) L 09/03/17 05:59 MCHC 30.5 g/dL (31.6-35.5) L 09/03/17 05:59 RDW 16.6 % (11.5-14.5) H 09/03/17 05:59 Lymphocytes # 0.3 K/mcL (0.6-4.6) L 09/03/17 05:59 ABG pH 7.30 pH Units (7.32-7.45) L 09/03/17 12:05 ABG pCO2 88 mmHg (35-45) H* 09/03/17 12:05 ABG HCO3 43 mEq/L (21-27) H 09/03/17 12:05 ABG Total CO2 46 mEq/L (20-26) H 09/03/17 12:05 ABG Base Excess 13 mEq/L (-2 to 3) H 09/03/17 12:05 Chloride 90 mEq/L (98-109) L 09/03/17 05:59 Carbon Dioxide 37 mEq/L (19-29) H 09/03/17 05:59 Creatinine 0.67 mg/dL (0.72-1.25) L 09/03/17 05:59 Glucose 125 mg/dL (70-99) H 09/03/17 05:59 Albumin 2.8 g/dL (3.5-5.0) L 09/03/17 05:59 Globulin 4.0 g/dL (2.4-3.5) H 09/03/17 05:59 Albumin/Globulin Ratio 0.7 (1.1-2.2) L 09/03/17 05:59 Urine Blood Trace (Negative) H 09/03/17 04:15 Urine Microscopic RBC 3-5 per hpf (0-3) H 09/03/17 04:15 - Diagnostic Findings Chest x-ray: report reviewed, image reviewed - Clinical Findings Intake & Output: Intake & Output 09/02/17 09/03/17 09/03/17 23:59 07:59 15:59 Intake Total 0 / 0 1250 / 1250 0 / 0 Output Total 450 / 450 1400 / 1400 250 / 250 Balance -450 / -450 -150 / -150 -250 / -250 Weight 89.3 kg 87.9 kg Consult Discharge Plan - Plan [facility]errals: [facility] [Primary Care Provider] -
[2017-09-03] MEDS ORDERED: Melatonin 3 MG TABLET PO ONE (21:57)
[2017-09-03 22:34] LABS: Adenovirus Not Detected (Not Detect); Bordetella Pertussis Not Detected (Not Detect); Chlamydophila pneumoniae Not Detected (Not Detect); Coronavirus 229E Not Detected (Not Detect); Coronavirus HKU1 Not Detected (Not Detect); Coronavirus NL63 Not Detected (Not Detect); Coronavirus OC43 Not Detected (Not Detect); Human Metapneumovirus Not Detected (Not Detect); Human Rhinovirus/Enterovirus Not Detected (Not Detect); Influenza A Subtype 2009 H1 Not Detected (Not Detect); Influenza A Untypeable Not Detected (Not Detect); Influenza B Not Detected (Not Detect); Mycoplasma pneumoniae Not Detected (Not Detect); Parainfluenza Virus 1 Not Detected (Not Detect); Parainfluenza Virus 2 Not Detected (Not Detect); Parainfluenza Virus 3 Not Detected (Not Detect); Parainfluenza Virus 4 Not Detected (Not Detect); Respiratory Syncytial Virus Not Detected (Not Detect)
[2017-09-04] MEDS: Piperacillin/Tazobactam 3.375 GM/200 ML BAG IVPB SCH (00:22)
[2017-09-04] MEDS: *HR* Heparin 5,000 UNIT/ML VIAL SQ SCH ×4 (00:22→23:05)
[2017-09-04] MEDS: Vancomycin 1,250 MG in D5% in Water 250 ML IVPB SCH (00:22)
[2017-09-04] MEDS: *HR* Morphine 2 MG/ML SYRINGE IVP PRN ×5 (02:59→23:05)
[2017-09-04 03:36] LABS: Hematocrit 35.9 % (37.5-50.1); Hemoglobin 11.4 g/dL (12.9-16.9); Immature Granulocytes % 0.7 % (0-4); Lymphocytes # 0.4 K/mcL (0.6-4.6); Mean Corpuscular HGB Conc 31.8 g/dL (31.6-35.5); Mean Corpuscular Volume 94.5 fL (83.0-100.0); Mean Platelet Volume 9.4 fL (9.4-12.4); Monocytes # 0.4 K/mcL (0.0-1.3); Monocytes % 3.9 %; Neutrophils # 8.6 K/mcL (1.6-8.9); Platelet Count 151 K/mcL (140-400); Segmented Neutrophils % 91.4 %
[2017-09-04 03:56] LABS: Alanine Aminotransferase 14 Units/L (0-55); Albumin 2.5 g/dL (3.5-5.0); Albumin/Globulin Ratio 0.6 (1.1-2.2); Alkaline Phosphatase 40 Units/L (38-126); Aspartate Amino Transferase 13 Units/L (5-34); BUN/Creatinine Ratio 24 (6-26); Bilirubin,Total 0.4 mg/dL (0.2-1.2); Blood Urea Nitrogen 15 mg/dL (8-26); Calcium 8.5 mg/dL (8.6-10.8); Carbon Dioxide 36 mEq/L (19-29); Chloride 92 mEq/L (98-109); Glucose 182 mg/dL (70-99); Osmolality,Calculated 291 (280-300); Potassium 4.3 mEq/L (3.5-4.5); Sodium 138 mEq/L (136-145); Total Protein 6.5 g/dL (6.0-8.3); eGFR For African Americans > 60 (> 60); eGFR For Non-African Americans > 60 (> 60)
[2017-09-04] MEDS: Ipratropium/Albuterol Neb 3 ML IH SCH ×4 (05:00→22:40)
[2017-09-04] MEDS ORDERED: Azithromycin 250 MG TABLET PO ONE (07:21)
--- NOTE | 2017-09-04 08:16 | Pulmonology Progress Note ---
Date of Encounter: 09/04/17 Time of Encounter: 08:16 Assessment and Plan (1) Acute respiratory failure with hypoxia and hypercarbia Current Visit: Yes Status: Acute Secondary to advanced COPD suspected sleep apnea and obesity hypoventilation syndrome Use supplemental oxygen to keep saturation greater than 88% to 92% at all times BiPAP qualification tonight (2) COPD with acute exacerbation Current Visit: Yes Status: Acute De-escalate broad-spectrum antimicrobials to azithromycin to complete 5 day course Transitioned to oral prednisone 40 mg to taper over 2 weeks Continue home Symbicort 160/4.52 puffs twice a day Continue supplemental bronchodilators as needed Follow-up in pulmonary clinic either at [place] or [place] (3) Sleep disorder breathing Current Visit: No Status: Acute Needs outpatient PSG on BiPAP (4) Tobacco abuse Current Visit: No Status: Chronic Tobacco abuse Elham has been provided is also wearing a nicotine patch (5) Pleural effusion Current Visit: Yes Status: Acute Suspected cardiac etiology BMP is normal however this is possibly a false negative as far as increase left ventricular filling pressures with pulmonary venous congestion and suspected recommend formal echocardiography Subjective Principal diagnosis: COPD exacerbation Interval history: He did well overnight per patient wore BiPAP overnight and now feels much better. He is very irascible today and requesting to go home Objective PUL Vital signs: Last Vital Signs Temp 97.6 F 09/04/17 07:29 Pulse 86 09/04/17 07:47 Resp 16 09/04/17 07:29 BP 166/95 09/04/17 07:29 Pulse Ox 100 09/04/17 07:29 General appearance: no acute distress Effort: normal Auscultation: bilateral: diminished breath sounds, wheezes (Faint expiratory wheezing but much improved from prior days exam he also has bunch better air movement bilaterally) Results - Laboratory Findings CBC and BMP: 09/04/17 03:15 09/04/17 03:15 ABG ABG pH 7.30 pH Units (7.32-7.45) L 09/03/17 12:05 ABG pCO2 88 mmHg (35-45) H* 09/03/17 12:05 ABG pO2 102 mmHg (85-104) 09/03/17 12:05 ABG O2 Saturation 97 % (95-98) 09/03/17 12:05 Abnormal lab findings: Abnormal lab results RBC 3.80 M/mcL (4.19-5.50) L 09/04/17 03:15 Hgb 11.4 g/dL (12.9-16.9) L 09/04/17 03:15 Hct 35.9 % (37.5-50.1) L 09/04/17 03:15 RDW 16.0 % (11.5-14.5) H 09/04/17 03:15 Lymphocytes # 0.4 K/mcL (0.6-4.6) L 09/04/17 03:15 ABG pH 7.30 pH Units (7.32-7.45) L 09/03/17 12:05 ABG pCO2 88 mmHg (35-45) H* 09/03/17 12:05 ABG HCO3 43 mEq/L (21-27) H 09/03/17 12:05 ABG Total CO2 46 mEq/L (20-26) H 09/03/17 12:05 ABG Base Excess 13 mEq/L (-2 to 3) H 09/03/17 12:05 Chloride 92 mEq/L (98-109) L 09/04/17 03:15 Carbon Dioxide 36 mEq/L (19-29) H 09/04/17 03:15 Creatinine 0.63 mg/dL (0.72-1.25) L 09/04/17 03:15 Glucose 182 mg/dL (70-99) H 09/04/17 03:15 POC Glucose 126 (58-89) H 09/03/17 06:17 Calcium 8.5 mg/dL (8.6-10.8) L 09/04/17 03:15 Albumin 2.5 g/dL (3.5-5.0) L 09/04/17 03:15 Globulin 4.0 g/dL (2.4-3.5) H 09/04/17 03:15 Albumin/Globulin Ratio 0.6 (1.1-2.2) L 09/04/17 03:15 Urine Blood Trace (Negative) H 09/03/17 04:15 Urine Microscopic RBC 3-5 per hpf (0-3) H 09/03/17 04:15 - Microbiology Findings Microbiology Findings: Microbiology, Last 48 Hours 09/02/17 22:50 Blood Culture - Preliminary Peripheral Venipuncture No growth. 09/02/17 22:50 Blood Culture - Preliminary Peripheral Venipuncture No growth. - Clinical Findings Intake & Output: Intake & Output 09/03/17 09/04/17 09/04/17 23:59 07:59 15:59 Intake Total 440 / 440 Output Total 450 / 450 150 / 150 Balance -10 / -10 -150 / -150 Weight 88.5 kg Consult Discharge Plan - Plan [facility]: [facility] [[facility] Care Provider[facility] -
[2017-09-04] MEDS: MethylPREDNISolone 40 MG/ML VIAL IVP SCH ×3 (08:33→23:05)
[2017-09-04] MEDS: Nicotine 21 MG PATCH.TD24 TD SCH (08:42)
--- NOTE | 2017-09-04 09:20 | Internal Med Progress Note ---
Date of Encounter: 09/04/17 Time of Encounter: 09:20 - Assessment and plan (1) COPD (chronic obstructive pulmonary disease) Current Visit: No Status: Chronic Assessment and plan: Appreciate pulm's help. Solumedrol weaned down to 40 mg IV q 8hrs. c/w nebs treatments. Likely chronic O2 retainer. Apnea study tonight. Wean O2 as tolerated. c/w zithromax Qualifiers: COPD type: emphysema Emphysema type: panlobular Qualified Code(s): J43.1 - Panlobular emphysema (2) Peripheral vascular disease Current Visit: No Status: Chronic Assessment and plan: Seen by vascular. No surgical needs. stop IV abx. Changes are likely from PVD not cellulites. Needs wound care. (3) Smoking Current Visit: No Status: Chronic Assessment and plan: nicotine patch (4) DVT prophylaxis Current Visit: Yes Status: Acute Assessment and plan: heparin SQ (5) Pleural effusion Current Visit: Yes Status: Acute Assessment and plan: Trace. Will check an echo. Give 20 mg IV lasix today - Subjective Interval history: No acute events. He is able to wean down on O2 needs. Off Bipap and is on 5 L O2. No fevers. He is chronically on 2 L O2 - Constitutional Vitals: Temp Pulse Resp BP Pulse Ox 97.6 F 86 16 166/95 100 09/04/17 07:29 09/04/17 07:47 09/04/17 07:29 09/04/17 07:29 09/04/17 07:29 Exam: GEN: On bipap CVS: RRR. S1, S2, No m/r/g RESP: diminshed. Scattered wheezes ABD: soft, NT, ND, +BS EXT: No edema. 2+ DP. Multiple areas of redness in the LE and ulcerations. No open wounds. No drainage. Some parts are wrapped per vascular NEURO: Nonfocal Internal Medicine: Result - Labs CBC & Chem 7: 09/04/17 03:15 09/04/17 03:15 Labs: Short CBC 09/04/17 Range/Units 03:15 WBC 9.4 (4.3-11.1) K/mcL Hgb 11.4 L (12.9-16.9) g/dL Hct 35.9 L (37.5-50.1) % Plt Count 151 (140-400) K/mcL Neutrophils # 8.6 (1.6-8.9) K/mcL BMP 09/04/17 03:15 Sodium 138 Potassium 4.3 Chloride 92 L Carbon Dioxide 36 H BUN 15 Creatinine 0.63 L Glucose 182 H Calcium 8.5 L Liver Function 09/04/17 Range/Units 03:15 Total Bilirubin 0.4 (0.2-1.2) mg/dL AST 13 (5-34) Units/L ALT 14 (0-55) Units/L Alkaline Phosphatase 40 (38-126) Units/L Albumin 2.5 L (3.5-5.0) g/dL - ABG Interpretation ABG results: ABG ABG pH 7.30 pH Units (7.32-7.45) L 09/03/17 12:05 ABG pCO2 88 mmHg (35-45) H* 09/03/17 12:05 ABG pO2 102 mmHg (85-104) 09/03/17 12:05 ABG O2 Saturation 97 % (95-98) 09/03/17 12:05 - Impressions Impressions Chest X-Ray 09/03/17 08:48 IMPRESSION: New, trace bilateral pleural effusions and mild bibasilar atelectasis. D/ / 09/03/2017 09:31:04 Stefain Pedro MD / wero Interpreting Provider: Stefani Pedro MD Consult Discharge Plan - Plan [facility]errals: [facility] [Primary Care Provider] -
[2017-09-04] MEDS ORDERED: Furosemide 20 MG/2 ML VIAL IVP ONE (09:23)
[2017-09-04] MEDS: Gentamicin Oint 15 GM TUBE TP SCH (10:31)
[2017-09-04] MEDS: 0.9 % Sodium Chloride 1,000 ML IVC SCH (19:49)
[2017-09-04] MEDS ORDERED: Melatonin 3 MG TABLET PO ONE (21:01)
[2017-09-05] MEDS: Ipratropium/Albuterol Neb 3 ML IH SCH ×2 (04:12→11:12)
[2017-09-05 05:44] LABS: Hematocrit 38.5 % (37.5-50.1); Immature Granulocytes % 0.6 % (0-4); Lymphocytes # 0.5 K/mcL (0.6-4.6); Lymphocytes % 4.8 %; Mean Corpuscular HGB Conc 31.2 g/dL (31.6-35.5); Mean Corpuscular Hemoglobin 29.8 pg (28.0-33.3); Mean Corpuscular Volume 95.5 fL (83.0-100.0); Monocytes # 0.5 K/mcL (0.0-1.3); Monocytes % 5.1 %; Neutrophils # 8.8 K/mcL (1.6-8.9); Platelet Count 153 K/mcL (140-400); Red Blood Count 4.03 M/mcL (4.19-5.50); Segmented Neutrophils % 89.5 %
[2017-09-05] MEDS: *HR* Morphine 2 MG/ML SYRINGE IVP PRN (05:53)
[2017-09-05 05:55] LABS: Alanine Aminotransferase 17 Units/L (0-55); Albumin 2.6 g/dL (3.5-5.0); Albumin/Globulin Ratio 0.6 (1.1-2.2); Alkaline Phosphatase 40 Units/L (38-126); Aspartate Amino Transferase 13 Units/L (5-34); BUN/Creatinine Ratio 32 (6-26); Bilirubin,Total 0.3 mg/dL (0.2-1.2); Blood Urea Nitrogen 21 mg/dL (8-26); Calcium 9.2 mg/dL (8.6-10.8); Chloride 93 mEq/L (98-109); Globulin 4.1 g/dL (2.4-3.5); Glucose 165 mg/dL (70-99); Osmolality,Calculated 301 (280-300); Potassium 4.5 mEq/L (3.5-4.5); Sodium 142 mEq/L (136-145); Total Protein 6.7 g/dL (6.0-8.3); eGFR For African Americans > 60 (> 60); eGFR For Non-African Americans > 60 (> 60)
[2017-09-05 06:01] LABS: Carbon Dioxide 40 mEq/L (19-29)
[2017-09-05] MEDS: 0.9 % Sodium Chloride 1,000 ML IVC SCH (06:08)
[2017-09-05 06:28] LABS: ABG Base Excess 17 mEq/L (-2 to 3); ABG HCO3 46 mEq/L (21-27); ABG Oxygen Saturation 91 % (95-98); ABG PCO2 82 mmHg (35-45); ABG PH 7.36 pH Units (7.32-7.45); ABG PO2 67 mmHg (85-104); ABG TCO2 49 mEq/L (20-26)
[2017-09-05 07:17] VITALS: BP 161/89
[2017-09-05] MEDS ORDERED: Azithromycin 250 MG TABLET PO SCH (07:30)
--- NOTE | 2017-09-05 08:15 | Discharge Summary ---
Date of Encounter: 09/05/17 Time of Encounter: 08:15 - Discharge Diagnosis (1) COPD (chronic obstructive pulmonary disease) Priority: Primary Status: Chronic Qualifiers: COPD type: emphysema Emphysema type: panlobular Qualified Code(s): J43.1 - Panlobular emphysema (2) Peripheral vascular disease Priority: Secondary Status: Chronic (3) Smoking Priority: Primary Status: Chronic (4) Pleural effusion Priority: Primary Status: Acute - Discharge Medications Prescriptions: Azithromycin 250 mg PO DAILY #2 tablet HYDROcodone/Acet 5/325 mg [Gray 5-325 mg] 1 tab PO Q6H PRN #15 tab PRN Reason: Pain predniSONE [PredniSONE] See Taper PO DAILY #32 tablet traZODone [TraZODone] 50 mg PO HS #10 tablet Home Medications: Aspirin [Lo-Dose Aspirin EC] 81 mg PO DAILY 04/16/17 [History] Budesonide/Formoterol 160/4.5 [Symbicort 160/4.5] 1 puff IH BIDR 04/16/17 [ History] Carvedilol [Coreg] 6.25 mg PO BID 04/16/17 [History] Ipratropium/Albuterol Neb [Duoneb] 3 ml IH Q4H PRN 04/16/17 [History] Lisinopril [Zestril] 40 mg PO HS 04/16/17 [History] Omeprazole [PriLOSEC] 20 mg PO DAILY 04/16/17 [History] Simvastatin [Zocor] 40 mg PO HS 04/16/17 [History] hydroCHLOROthiazide [Hydrochlorothiazide] 25 mg PO DAILY 04/16/17 [History] Gabapentin [Neurontin] 300 mg PO TID 07/31/17 [History] Enoxaparin [Lovenox] 40 mg SQ DAILY 09/02/17 [History] Nicotine Patch [Nicoderm] 21 mg TD DAILY 09/02/17 [History] Oxygen 3 l NS CONT 09/02/17 [History] Azithromycin 250 mg PO DAILY #2 tablet 09/05/17 [Rx] HYDROcodone/Acet 5/325 mg [Gray 5-325 mg] 1 tab PO Q6H PRN #15 tab 09/05/17 [Rx ] predniSONE [PredniSONE] See Taper PO DAILY #32 tablet 09/05/17 [Rx] traZODone [TraZODone] 50 mg PO HS #10 tablet 09/05/17 [Rx] Allergies/Adverse Reactions: 3 Allergy/AdvReac Type Severity Reaction Status Date / Time bee venom protein (honey bee) Allergy Swelling Verified 08/14/17 14:06 of Lip/Tongue/Throat Procedures/tests Complete & Pending: Procedures Performed prior 72 hours Category Date Time Status EV echocardiogram Routine Y 09/04/17 09:15 Completed Date of admission: 09/02/17 17:45 Primary care physician: PCP [place] Consults: 09/02/17 22:26 Consult to Physician [CONS] Routine Consulting Provider: Syed Rosa Reason for Consult: resp failure Time Notified: 22:27 Call Completed: No 09/03/17 13:59 Consult to Pulmonology [CONS] Stat Consulting Provider: [facility] [place] Reason for Consult: respiratory failure/COPD exacerbation Call Completed: No - Patient Status Disposition: Home, Self-Care Condition: Fair Overall status at discharge: patient is back to baseline - Discharge Instructions Instructions: Chronic Obstructive Pulmonary Disease (GEN) Follow Up With: Panchito Ayoub MD [Partnered Physician] - 09/16/17 2:45 pm [place],PCP [Primary Care Provider] - 09/17/17 9:45 am (with [place]) Additional Instructions: F/U with pulmonary clinic in [place] or [place] in 2 weeks Change dressings to Bilateral feet and Right lower leg once a day. Cleanse wounds with soap and water. Apply 50/50 Santyl and Gentamycin mixture nickel thick to wounds, cover with moist gauze, then dry gauze and secure with Kerlix wrap. - Diet and Activity Activity: wear oxygen at all times Diet: regular diet Hospital course: Mr. Sultana is a 67 year old male who was transferred from [place] for respiratory failure. He has advanced COPD but unfortunately he still smokes but reports that he quit a couple of weeks back. He is presented respiratory distress and was admitted for COPD exacerbation. He is on chronic O2 about 2-3 L. His ABG showed CO2 of 90 but he is a retainer. Pulmonary was following and he was on IV steroids, Zithromax, and was kept on Bipap on and off. We weaned him off bipap and down to his chronic O2 needs. He qualified for Bipap at night and was set up with one. I approached the topic of hospice with him given his end stage COPD and he was not interested. This may need to be considered again down the road in future admissions. He is discharged on prednisone taper and 2 more days of oral Zithromax. He was initially started on IV zosyn for possible lower extremity cellulites but I stopped the abx as I believe his lowere extremities are chronically red from sever PVD. - Time Spent with Patient Total time spent providing and/or coordinating discharge services: - Constitutional Vitals: Temp Pulse Resp BP Pulse Ox 98.1 F 95 16 161/89 94 09/05/17 07:15 09/05/17 07:15 09/05/17 07:15 09/05/17 07:15 09/05/17 07:15 Exam: GEN: On bipap CVS: RRR. S1, S2, No m/r/g RESP: diminshed. Scattered wheezes ABD: soft, NT, ND, +BS EXT: No edema. 2+ DP. Multiple areas of redness in the LE and ulcerations. No open wounds. No drainage. Some parts are wrapped per vascular NEURO: Nonfocal
--- NOTE | 2017-09-05 08:19 | Event Note ---
Date of Encounter: 09/05/17 Time of Encounter: 08:17 Patient feeling much better his demanding to go home today Completed overnight BiPAP qualification test and appears to have qualified for home going respiratory assist device through CMS guidelines He will need discharged on current BiPAP settings with plan for polysomnogram as an outpatient on BiPAP Continue steroids which can be transitioned to prednisone 40 mg to complete two- week taper Finish 5 day course of azithromycin Continue home inhaler regimen Tobacco cessation counseling provided Outpatient pulmonary follow-up at the [place] or [facility] I left the patient my card Pulmonary will sign off thank you for this consultation
[2017-09-05] MEDS: Nicotine 21 MG PATCH.TD24 TD SCH (08:27)
[2017-09-05] MEDS: MethylPREDNISolone 40 MG/ML VIAL IVP SCH (08:27)
[2017-09-05] MEDS: *HR* Heparin 5,000 UNIT/ML VIAL SQ SCH (08:27)
== END 2017-09-05 12:40 | disposition home or self-care (01) | DRG 190 ==
LOC: 2NNU 17:45
PROVIDERS: ADMIT Hospitalist; ATTEND Internal Medicine

== ENCOUNTER 2017-09-12 11:41 | Inpatient (IN) ==
--- NOTE | 2017-09-12 12:03 | Anesthesia Evaluation PreOp ---
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: Denies Any Significant HX Other Medical History: Denies Any Significant HX Anesthesia History: No Prior Anesthetic Complications, Past Anesthesia Alcohol Use: none Drug use: none Medications and Allergies Aspirin [Lo-Dose Aspirin EC] 81 mg PO DAILY 04/16/17 [History] Budesonide/Formoterol 160/4.5 [Symbicort 160/4.5] 1 puff IH BIDR 04/16/17 [ History] Carvedilol [Coreg] 6.25 mg PO BID 04/16/17 [History] Ipratropium/Albuterol Neb [Duoneb] 3 ml IH Q4H PRN 04/16/17 [History] Lisinopril [Zestril] 40 mg PO HS 04/16/17 [History] Omeprazole [PriLOSEC] 20 mg PO DAILY 04/16/17 [History] Simvastatin [Zocor] 40 mg PO HS 04/16/17 [History] hydroCHLOROthiazide [Hydrochlorothiazide] 25 mg PO DAILY 04/16/17 [History] Gabapentin [Neurontin] 300 mg PO TID 07/31/17 [History] Enoxaparin [Lovenox] 40 mg SQ DAILY 09/02/17 [History] Nicotine Patch [Nicoderm] 21 mg TD DAILY 09/02/17 [History] Oxygen 3 l NS CONT 09/02/17 [History] Azithromycin 250 mg PO DAILY #2 tablet 09/05/17 [Rx] HYDROcodone/Acet 5/325 mg [[place] 5-325 mg] 1 tab PO Q6H PRN #15 tab 09/05/17 [Rx ] predniSONE [PredniSONE] See Taper PO DAILY #32 tablet 09/05/17 [Rx] traZODone [TraZODone] 50 mg PO HS #10 tablet 09/05/17 [Rx] 3 Allergy/AdvReac Type Severity Reaction Status Date / Time bee venom protein (honey bee) Allergy Swelling Verified 08/14/17 14:06 of Lip/Tongue/Throat - Meds/Allergy Pre-op Review Medications Reviewed: Yes Allergies Reviewed: Yes Beta Blockers on Current Med List: Yes If Beta Blockers taken, Date/Time (Last Dose taken): 09/12/2017 at 0500 Anesthesia Results - Labs Laboratory Tests 09/11/17 09/11/17 09/11/17 17:51 17:51 17:51 WBC 8.8 Hgb 13.1 Hct 41.5 Plt Count 141 PT 11.0 INR 1.0 APTT 33.5 Sodium 141 Potassium 3.9 BUN 13 Creatinine 0.78 - Imaging EKG: report reviewed (07/31/2017 SINUS RHYTHM POSSIBLE LEFT ATRIAL ENLARGEMENT [- 0.1mV P WAVE IN V1/V2] INCOMPLETE RIGHT BUNDLE BRANCH BLOCK [90+ ms QRS DURATION , TERMINAL R IN V1/V2, 40+ ms S IN I/aVL/V4/V5/V6]) Additional studies: 09/04/2017 Echo Impressions: LVEF 60%. Mild left ventricular diastolic dysfunction. Normal right ventricular structure and function. Mild mitral regurgitation. No pulmonary hypertension. Pleural effusions are not identified on this study. 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 Patient wishes to proceed.) Modified Dameon Scale for Level of Consciousness: Cooperative, oriented, and tranquil Anesthetic Plan: General Monitoring Plan: Standard Monitors Recovery Plan: PACU
[2017-09-12] MEDS ORDERED: CeFAZolin Syr 2,000MG/20 ML 2,000 MG/20 ML SYRINGE IVPB ONE (12:11)
[2017-09-12] MEDS ORDERED: Plasma-Lyte A (PH 7.4) 1,000 ML IVC SCH (12:15)
[2017-09-12] MEDS ORDERED: Albuterol 2.5 MG/3 ML NEBULIZER IH ONE (12:16)
[2017-09-12] MEDS ORDERED: Albuterol 2.5 MG/3 ML NEBULIZER ONE (12:22)
[2017-09-12] MEDS ORDERED: Vancomycin 1,250 MG in D5% in Water 250 ML IVPB ONE (12:30)
[2017-09-12] MEDS ORDERED: *HR* Succinylcholine 200 MG/10 ML VIAL IVP ONE (13:05)
[2017-09-12] MEDS ORDERED: *HR* Midazolam HCl 2 MG/2 ML VIAL ONE (13:05)
[2017-09-12] MEDS ORDERED: *HR* Propofol 200 MG/20 ML VIAL IVP ONE (13:05)
[2017-09-12] MEDS ORDERED: Ondansetron 4 MG/2 ML VIAL ONE (13:05)
[2017-09-12] MEDS ORDERED: Lidocaine -MPF 2% 2 ML VIAL ONE (13:05)
[2017-09-12] MEDS ORDERED: *HR* FentaNYL (PF) 100 MCG/2 ML VIAL ONE ×2 (13:05→13:54)
--- NOTE | 2017-09-12 13:05 | History & Physical Report ---
Date of Encounter: 09/12/17 Time of Encounter: 12:00 24 Hour HP Update - Instructions Instructions: If the History and Physical is less than 30 days old and was completed prior to A.M. admission and or procedure and has NOT been updated on calendar day of procedure please complete this update prior to performing procedure. - Update Patient reports changes in Medical Condition: No Changes in examination, assessment, or condition: No Changes in Medication: No Preop tests/diagnostics Reviewed: Yes Surgery Remains Indicated: Yes Consent for Planned Operative Procedure(s) Verified: Yes - Pre-Operative Checklist Preoperative Checklist Indicated: Yes Prophylactic Antibiotic Ordered: Yes (vancomycin due to mrsa risk) Home Medications Include Beta Tari: Yes Beta Tari Taken Today (Day of Surgery): Yes Beta Tari Taken Yesterday (Day Prior to Surgery): Yes Is VTE Prophylaxis Indicated?: Yes
[2017-09-12] MEDS ORDERED: Ondansetron 4 MG/2 ML VIAL IVP PRN ×2 (14:22→16:48)
[2017-09-12] MEDS ORDERED: Albuterol 2.5 MG/3 ML NEBULIZER IH PRN (14:22)
--- NOTE | 2017-09-12 15:30 | Operative Note ---
Date of procedure: 09/12/17 Pre-op diagnosis: Peripheral Vascular Disease with Gangrene Post-op diagnosis: same Procedure: Left above knee amputation Complications: None Anesthesia: GETA Surgeon: Panchito Ayoub Estimated blood loss (cc): 200 Specimen: Left lower extremity Condition: stable Disposition: PACU Procedure in Detail: Indications: The patient is a 67 year old male with a long history of peripheral vascular disease. He has developed progressive left lower extremity gangrene and intractable pain. Amputation has been recommended for symptomatic relief and to reduce his risk of life threatening infection. Procedure: The patient was identified in the preoperative area. The risks, benefits and alternatives were discussed and all questions were answered. The patient was taken to the operating room and placed in the supine position on the operating room table. After the induction of general endotracheal anesthesia, the patient was cleaned and draped in the normal sterile fashion. The skin was demarcated along the left thigh or a standard incision. The skin was incised with a #10 blade. Using a process of blunt, sharp and electrocautery dissection, the muscle fascia was traversed. The saphenous vein was clamped, divided and ligated. The neurovascular bundle was identified. The artery and vein were clamped and divided. The nerve was transected sharply. The prior occluded PTFE graft was divided and excised from the incision. The graft was ligated proximally. The periosteum was elevated off of the femur. Using a powered saw, the femur was then transected. The artery and vein were then suture ligated with 0 silk suture. The nerve was grasped and transected as high as possible. The wound was irrigated. Meticulous hemostasis was obtained through out the wound with electrocautery. The fascial layers were reapproximated with vicryl suture. Skin was reapproximated with jose. A sterile dressing was applied. The patient was extubated and taken to the recovery room in stable condition.
[2017-09-12] MEDS: *HR* HYDROmorphone (PF) 1 MG/ML SYRINGE IVP PRN ×2 (15:35→15:44)
[2017-09-12] MEDS ORDERED: Acetaminophen IV 1,000 MG/100 ML INFUS..BTL IVPB ONE (15:50)
[2017-09-12] MEDS ORDERED: *HR* HYDROmorphone (PF) 1 MG/ML SYRINGE IVP PRN (15:51)
--- NOTE | 2017-09-12 16:13 | Anesthesia Evaluation Post Op ---
Date of Encounter: 09/12/17 Time of Encounter: 16:12 - Vital Signs Vital Signs: Vital Signs/O2 Sat, Most Current Temp Pulse Resp BP Pulse Ox 100 F H 109 16 132/69 96 09/12/17 15:53 09/12/17 16:03 09/12/17 16:03 09/12/17 16:03 09/12/17 16:03 - Lungs Lungs: Clear Ascult./Percussion - Airway Airway: Non-obstructed - Cardiovascular Regular Rate - Mental Status Mental Status: Alert & Oriented, Answers Appropriately - Pain Pain Scale: 0 Pain Scale used: Numeric (1 - 10) - Nausea Vomiting Nausea Vomiting: Not Present - Hydration Hydration: Tolerates oral liquids, Nettles catheter - Discharge PostOp Status: Transfer Patient to floor
[2017-09-12] MEDS ORDERED: *HR* Labetalol 20 MG/4 ML SYRINGE IVP PRN (16:48)
[2017-09-12] MEDS ORDERED: 0.9 % Sodium Chloride 1,000 ML IVC SCH (16:48)
[2017-09-12] MEDS ORDERED: Naloxone 0.4 MG/ML INJ IVP PRN (16:48)
[2017-09-12] MEDS ORDERED: Temazepam 15 MG CAPSULE PO PRN (16:48)
[2017-09-12] MEDS ORDERED: Acetaminophen 325 MG TABLET PO PRN (16:48)
[2017-09-12] MEDS: Ipratropium/Albuterol Neb 3 ML IH SCH ×2 (17:22→22:07)
[2017-09-12] MEDS: *HR* Morphine 2 MG/ML SYRINGE IVP PRN ×5 (17:26→23:19)
[2017-09-12] MEDS: Gabapentin 300 MG CAPSULE PO SCH ×2 (18:13→21:01)
[2017-09-12] MEDS ORDERED: Gentamicin Oint 15 GM TUBE TP SCH (19:30)
[2017-09-12] MEDS: Melatonin 3 MG TABLET PO SCH (21:01)
[2017-09-12] MEDS: *HR* OxyCODONE Immed Rel 5 MG TABLET PO PRN (21:01)
[2017-09-12] MEDS: CeFAZolin Premix DUPLEX 2,000 MG/50 ML BAG IVPB SCH (21:25)
[2017-09-12] MEDS: Budesonide/Formoterol 160/4.5 MDI IH SCH (22:12)
[2017-09-12] MEDS: Albuterol 2.5 MG/3 ML NEBULIZER IH SCH (22:12)
[2017-09-13] MEDS ORDERED: Vancomycin 1,250 MG in D5% in Water 250 ML IVPB ONE (02:00)
[2017-09-13] MEDS: *HR* Morphine 2 MG/ML SYRINGE IVP PRN ×8 (02:34→23:55)
[2017-09-13] MEDS: *HR* OxyCODONE Immed Rel 5 MG TABLET PO PRN ×3 (04:23→16:44)
[2017-09-13] MEDS: Ipratropium/Albuterol Neb 3 ML IH SCH ×3 (04:51→21:49)
[2017-09-13] MEDS: Albuterol 2.5 MG/3 ML NEBULIZER IH SCH ×4 (04:56→21:50)
[2017-09-13] MEDS ORDERED: *HR* Heparin 5,000 UNIT/ML VIAL SQ SCH (06:00)
[2017-09-13] MEDS: CeFAZolin Premix DUPLEX 2,000 MG/50 ML BAG IVPB SCH (06:09)
[2017-09-13] MEDS: *HR* Heparin 5,000 UNIT/ML VIAL SQ SCH ×4 (06:09→23:55)
[2017-09-13 06:44] LABS: Basophils % 0.1 %; Eosinophils # 0.1 K/mcL (0.0-0.6); Eosinophils % 1.1 %; Hematocrit 33.5 % (37.5-50.1); Hemoglobin 10.3 g/dL (12.9-16.9); Immature Granulocytes % 0.5 % (0-4); Lymphocytes # 0.8 K/mcL (0.6-4.6); Lymphocytes % 7.9 %; Mean Corpuscular HGB Conc 30.7 g/dL (31.6-35.5); Mean Corpuscular Hemoglobin 29.7 pg (28.0-33.3); Mean Corpuscular Volume 96.5 fL (83.0-100.0); Mean Platelet Volume 9.2 fL (9.4-12.4); Monocytes # 1.1 K/mcL (0.0-1.3); Monocytes % 10.9 %; Neutrophils # 7.7 K/mcL (1.6-8.9); Platelet Count 129 K/mcL (140-400); Red Blood Count 3.47 M/mcL (4.19-5.50); Segmented Neutrophils % 79.5 %
[2017-09-13 06:53] LABS: BUN/Creatinine Ratio 17 (6-26); Blood Urea Nitrogen 11 mg/dL (8-26); Calcium 8.7 mg/dL (8.6-10.8); Carbon Dioxide 36 mEq/L (19-29); Chloride 96 mEq/L (98-109); Glucose 125 mg/dL (70-99); Osmolality,Calculated 287 (280-300); Potassium 3.9 mEq/L (3.5-4.5); Sodium 138 mEq/L (136-145); eGFR For African Americans > 60 (> 60); eGFR For Non-African Americans > 60 (> 60)
[2017-09-13] MEDS: Lisinopril 20 MG TABLET PO SCH (08:34)
[2017-09-13] MEDS: hydroCHLOROthiazide 25 MG TABLET PO SCH (08:34)
[2017-09-13] MEDS: Aspirin Enteric Coated 81 MG Tablet PO SCH (08:34)
[2017-09-13] MEDS: Gabapentin 300 MG CAPSULE PO SCH ×3 (08:34→21:29)
--- NOTE | 2017-09-13 10:09 | Vascular/[facility] Progress Note ---
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 He reports adequate pain control. His bandage is dry. (2) Chronic disease anemia Current Visit: Yes Status: Chronic He has chronic anemia with acute expected postoperative blood loss anemia. He is hemodynamically stable without evidence of ongoing blood loss. (3) COPD (chronic obstructive pulmonary disease) Current Visit: No Status: Chronic Qualifiers: COPD type: emphysema Emphysema type: panlobular Qualified Code(s): J43.1 - Panlobular emphysema (4) Essential hypertension Current Visit: No Status: Chronic (5) Hypercoagulable state Current Visit: No Status: Chronic (6) Tobacco abuse Current Visit: No Status: Chronic - Subjective Interval history: The patient reports adequate pain control. He is alert and comfortable. He denies chest pain or acute shortness of breath. Vital Signs, Last 4 Hours Temp Pulse Resp BP Pulse Ox 09/13/17 08:35 109 92 09/13/17 06:34 98.4 F 104 14 142/68 90 - Physical Examination General: Present: Conversant, No Apparent Distress Cardiac: Present: Reg Rate and Rhythm Lungs: Present: No Wheeze, Rales, Rhonchi Neuro: Present: Alert and responsive, No focal deficits noted Vascular: Present: Amputation(s) (bandage dry) Abdomen: Present: Soft Skin: Present: Wound/ulcer(s) (Right lower extremity chronic wounds are stable and appear to be slowly healing.) Results 09/13/17 06:22 09/13/17 06:22 Lab Results, Last 24 hours 09/13/17 09/13/17 06:22 06:22 WBC 9.7 Hgb 10.3 L D Hct 33.5 L Plt Count 129 L Sodium 138 Potassium 3.9 Chloride 96 L Carbon Dioxide 36 H BUN 11 Creatinine 0.65 L Glucose 125 H Calcium 8.7 Consult Discharge Plan - Plan Referrals: Panchito Ayoub MD [Partnered Physician] - 10/27/17 1:00 pm [facility] [Primary Care Provider[facility] -
[2017-09-13] MEDS: Budesonide/Formoterol 160/4.5 MDI IH SCH ×2 (10:53→21:50)
[2017-09-13] MEDS ORDERED: Gentamicin Oint 15 GM TUBE TP SCH (21:00)
[2017-09-13] MEDS: Melatonin 3 MG TABLET PO SCH (21:29)
[2017-09-14] MEDS: *HR* Morphine 2 MG/ML SYRINGE IVP PRN ×4 (01:10→18:14)
[2017-09-14] MEDS: Ipratropium/Albuterol Neb 3 ML IH SCH ×4 (04:53→21:25)
[2017-09-14] MEDS: Albuterol 2.5 MG/3 ML NEBULIZER IH SCH ×4 (04:55→21:29)
[2017-09-14] MEDS: *HR* OxyCODONE Immed Rel 5 MG TABLET PO PRN ×2 (08:13→14:10)
[2017-09-14] MEDS: hydroCHLOROthiazide 25 MG TABLET PO SCH (08:13)
[2017-09-14] MEDS: Aspirin Enteric Coated 81 MG Tablet PO SCH (08:13)
[2017-09-14] MEDS: Gabapentin 300 MG CAPSULE PO SCH ×3 (08:13→19:59)
[2017-09-14] MEDS: Lisinopril 20 MG TABLET PO SCH (08:13)
[2017-09-14] MEDS: *HR* Heparin 5,000 UNIT/ML VIAL SQ SCH ×3 (09:43→23:55)
[2017-09-14] MEDS: Budesonide/Formoterol 160/4.5 MDI IH SCH ×2 (09:47→21:25)
--- NOTE | 2017-09-14 16:05 | Vascular/[facility] Progress Note ---
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 His pain remains controlled. He has been OOB to chair with assistance. His wound will be examined tomorrow. - Subjective Interval history: Comfortable and alert today without complaints Vital Signs, Last 4 Hours Temp Pulse Resp BP Pulse Ox 09/14/17 15:51 98.9 F 104 20 140/67 93 09/14/17 12:20 100 - Physical Examination General: Present: Conversant, No Apparent Distress Cardiac: Present: Reg Rate and Rhythm Lungs: Present: No Wheeze, Rales, Rhonchi Neuro: Present: Alert and responsive, No focal deficits noted Vascular: Present: Amputation(s) (bandage dry) Abdomen: Present: Soft Results 09/13/17 06:22 09/13/17 06:22 Consult Discharge Plan - Plan Referrals: Panchito Ayoub MD [Partnered Physician] - 10/27/17 1:00 pm [facility] [Primary Care Provider] -
[2017-09-14] MEDS: Gentamicin Oint 15 GM TUBE TP SCH (19:59)
[2017-09-14] MEDS: Melatonin 3 MG TABLET PO SCH (19:59)
[2017-09-15] MEDS: Albuterol 2.5 MG/3 ML NEBULIZER IH SCH ×3 (04:46→15:15)
[2017-09-15] MEDS: Ipratropium/Albuterol Neb 3 ML IH SCH ×4 (04:46→22:39)
[2017-09-15] MEDS: *HR* OxyCODONE Immed Rel 5 MG TABLET PO PRN ×3 (05:14→23:08)
[2017-09-15] MEDS: Gabapentin 300 MG CAPSULE PO SCH ×3 (08:54→19:47)
[2017-09-15] MEDS: hydroCHLOROthiazide 25 MG TABLET PO SCH (08:54)
[2017-09-15] MEDS: Aspirin Enteric Coated 81 MG Tablet PO SCH (08:54)
[2017-09-15] MEDS: *HR* Heparin 5,000 UNIT/ML VIAL SQ SCH ×3 (08:54→23:03)
[2017-09-15] MEDS: Lisinopril 20 MG TABLET PO SCH (08:54)
[2017-09-15] MEDS: Budesonide/Formoterol 160/4.5 MDI IH SCH ×2 (10:15→22:39)
[2017-09-15] MEDS: Gentamicin Oint 15 GM TUBE TP SCH (19:47)
[2017-09-15] MEDS: Melatonin 3 MG TABLET PO SCH (19:47)
[2017-09-16] MEDS: Ipratropium/Albuterol Neb 3 ML IH SCH ×4 (04:20→20:18)
[2017-09-16] MEDS: *HR* OxyCODONE Immed Rel 5 MG TABLET PO PRN ×2 (08:27→15:23)
[2017-09-16] MEDS: Lisinopril 20 MG TABLET PO SCH (08:28)
[2017-09-16] MEDS: hydroCHLOROthiazide 25 MG TABLET PO SCH (08:28)
[2017-09-16] MEDS: Aspirin Enteric Coated 81 MG Tablet PO SCH (08:28)
[2017-09-16] MEDS: Gabapentin 300 MG CAPSULE PO SCH ×3 (08:28→19:56)
[2017-09-16] MEDS: *HR* Heparin 5,000 UNIT/ML VIAL SQ SCH ×3 (08:28→23:31)
[2017-09-16] MEDS: Budesonide/Formoterol 160/4.5 MDI IH SCH ×2 (10:53→20:18)
--- NOTE | 2017-09-16 16:41 | Vascular/[facility] Progress Note ---
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 His wound is healing well. He will be discharged to rehab when a bed is available. - Subjective Interval history: The patient is comfortable. He denies chest pain or shortness of breath. He is alert. Vital Signs, Last 4 Hours Resp Pulse Ox 09/16/17 15:19 20 95 - Physical Examination General: Present: Conversant Cardiac: Present: Reg Rate and Rhythm Lungs: Present: No Wheeze, Rales, Rhonchi Neuro: Present: Alert and responsive, No focal deficits noted Vascular: Present: Amputation(s) (incision clean, slim and intact without erythema, drainage or echymosis) Abdomen: Present: Soft Skin: Present: Wound/ulcer(s) (right lower extremity wounds without evidence of infection.) Results 09/13/17 06:22 09/13/17 06:22 Consult Discharge Plan - Plan Referrals: Panchito Ayoub MD [Partnered Physician] - 10/27/17 1:00 pm [facility] [Primary Care Provider] - Prescriptions: OxyCODONE/APAP 5/325 [Percocet 5/325 MG] 1 tab PO Q6H PRN #25 tablet PRN Reason: postoperative pain
--- NOTE | 2017-09-16 16:41 | Vascular/[facility]as Progress Note ---
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 His wound is healing and he is ready for discharge. Will need daily dressing changes with Kerlix and trevor bandage comfortably wrapped. [place] to remain in place for 4 weeks. - Subjective Interval history: He is alert and comfortable. He states he is ready for discharge. He denies chest pain or shortness of breath. Vital Signs, Last 4 Hours Resp Pulse Ox 09/16/17 15:19 20 95 - Physical Examination General: Present: Conversant Cardiac: Present: Reg Rate and Rhythm Lungs: Present: No Wheeze, Rales, Rhonchi Neuro: Present: Alert and responsive, No focal deficits noted Vascular: Present: Surgical incisions (wound is clean and dry, margins viable) Abdomen: Present: Soft Skin: Present: Wound/ulcer(s) (right leg wounds appear stable) Results 09/13/17 06:22 09/13/17 06:22 Consult Discharge Plan - Plan Referrals: Panchito Ayoub MD [Partnered Physician] - 10/27/17 1:00 pm [facility] Care Provider[facility] - Prescriptions: OxyCODONE/APAP 5/325 [Percocet 5/325 MG] 1 tab PO Q6H PRN #25 tablet PRN Reason: postoperative pain
--- NOTE | 2017-09-16 16:44 | Discharge Summary ---
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 Status: Chronic (2) Chronic disease anemia Status: Chronic (3) COPD (chronic obstructive pulmonary disease) Status: Chronic Qualifiers: COPD type: emphysema Emphysema type: panlobular Qualified Code(s): J43.1 - Panlobular emphysema (4) Essential hypertension Status: Chronic (5) Hypercoagulable state Status: Chronic (6) Hyperlipemia Status: Chronic Qualifiers: Hyperlipidemia type: mixed hyperlipidemia Qualified Code(s): E78.2 - Mixed hyperlipidemia (7) Tobacco abuse Status: Chronic - Discharge Medications Prescriptions: OxyCODONE/APAP 5/325 [Percocet 5/325 MG] 1 tab PO Q6H PRN #25 tablet PRN Reason: postoperative pain Home Medications: Acetaminophen [Non-Aspirin] 325 mg PO BID PRN 09/12/17 [History] Albuterol Neb [Proventil Neb] 2.5 mg IH Q6HR 09/12/17 [History] Aspirin [Lo-Dose Aspirin EC] 81 mg PO DAILY 09/12/17 [History] Budesonide/Formoterol 160/4.5 [Symbicort 160/4.5] 2 puff IH BID 09/12/17 [ History] Carvedilol [Coreg] 6.25 mg PO BID 09/12/17 [History] Enoxaparin [Lovenox] 80 mg SQ Q12HR 09/12/17 [History] Gabapentin [Neurontin] 300 mg PO TID 09/12/17 [History] Ipratropium/Albuterol Neb [Duoneb] 3 ml IH Q6HR 09/12/17 [History] Lisinopril [Zestril] 40 mg PO DAILY 09/12/17 [History] Melatonin 9 mg PO HS 09/12/17 [History] Omeprazole [PriLOSEC] 20 mg PO DAILY 09/12/17 [History] Simvastatin [Zocor] 20 mg PO HS 09/12/17 [History] Temazepam [Restoril] 15 mg PO HS PRN 09/12/17 [History] hydroCHLOROthiazide [Hydrochlorothiazide] 25 mg PO DAILY 09/12/17 [History] OxyCODONE/APAP 5/325 [Percocet 5/325 MG] 1 tab PO Q6H PRN #25 tablet 09/16/17 [ Rx] Allergies/Adverse Reactions: 3 Allergy/AdvReac Type Severity Reaction Status Date / Time bee venom protein (honey bee) Allergy Swelling Verified 08/14/17 14:06 of Lip/Tongue/Throat Date of admission: 09/12/17 16:48 [facility] care physician: [facility] Consults: 09/12/17 16:48 Consult to Occupational Therapy [CONS] Routine Comment: Evaluate, develop and implement POC Reason for Consult: left above knee amputation, needs rehab. Consult to Physical Therapy [CONS] Routine Comment: Evaluate, develop and implement POC Reason for Consult: left above knee amputation, needs rehab. Consult to Graphic Art Designer [CONS] Routine Reason for SW Consult: left above knee amputation, needs rehab. Procedure(s) Performed: Left above knee amputation Discharging clinician: Panchito Ayoub - Patient Status Disposition: Transfer Inpatient Rehab Fac Condition: Fair - Discharge Instructions Follow Up With: Panchito Ayoub MD [Partnered Physician] - 10/27/17 1:00 pm [facility] [Primary Care Provider[facility] - (PATIENT IS GOING TO [place] NO FOLLOW UP APPOINTMENT NEEDED) Additional Instructions: Daily dressing changes to left ckdte-wet-exha amputation. This is a dry to dry dressing. Patient may begin cleansing left kceib-roi-jstt with soap and water and pat dry beginning , September 18 Patient to follow up with Dr. Ayoub in vascular surgery clinic. - Hospital Course Hospital course: Mr. Sultana is a 67 year old male - Time Spent with Patient Total time spent providing and/or coordinating discharge services: Exam Vital Signs, Last 4 Hours Resp Pulse Ox 09/16/17 15:19 20 95 <Bi Lepe - Last Filed: 09/17/17 11:27> Date of Encounter: 09/17/17 Time of Encounter: 08:00 Date of admission: 09/12/17 16:48 Primary care physician: [facility] Consults: 09/12/17 16:48 Consult to Occupational Therapy [CONS] Routine Comment: Evaluate, develop and implement POC Reason for Consult: left above knee amputation, needs rehab. Consult to Physical Therapy [CONS] Routine Comment: Evaluate, develop and implement POC Reason for Consult: left above knee amputation, needs rehab. Consult to Graphic Art Designer [CONS] Routine Reason for SW Consult: left above knee amputation, needs rehab. Anticipated date of discharge: 09/17/17 - Patient Status Functional capacity at discharge: wheelchair bound Overall status at discharge: patient is not back to baseline - Diet and Activity Activity: as per physical therapy Diet: advance to your usual diet - Hospital Course Hospital course: Mr. Sultana is a 67 year old male With known severe bilateral lower extremity vascular occlusive disease. He has undergone multiple previous interventions. He has had progression of the disease and he is found now to have a unreconstructable process involving the left lower extremity. The patient had been recommended to undergo a left amputation. He had deferred this until recently and then re-presents now at this time with ischemia and request for amputation. The patient then underwent a left tdlfq-dov-ezyf amputee patient this past Friday with Dr. Ayoub. He had no periprocedural complications. He tolerated the anesthetic well. The patient has been receiving now dressing changes beginning on postoperative day #2. The patient is medically stable. He is ready for transfer. The patient will follow up with Dr. Ayoub for further wound care and also for evaluation of the right lower extremity. - Time Spent with Patient Total time spent providing and/or coordinating discharge services: Exam Vital Signs, Last 4 Hours Temp Pulse Resp BP Pulse Ox 09/17/17 11:01 98.7 F 95 18 137/79 91 09/17/17 07:23 98.5 F 89 19 134/90 97 General: Present: Conversant, No Apparent Distress Cardiac: Present: Reg Rate and Rhythm Lungs: Present: Decreased breath sounds Neuro: Present: Alert and responsive, No focal deficits noted, Cranial nerves grossly intact Abdomen: Present: Soft, Non-tender Vascular: Present: Amputation(s) (Left nlxid-mto-cbms amputation site is intact. There is mild erythema around the edges. There is no signs of cyanosis. There is no drainage. There are no blebs.)
--- NOTE | 2017-09-16 17:16 | Physician Discharge Referral ---
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 Priority: Primary Status: Chronic (2) Chronic disease anemia Priority: Secondary Status: Chronic (3) COPD (chronic obstructive pulmonary disease) Priority: Secondary Status: Chronic (4) Essential hypertension Priority: Secondary Status: Chronic (5) Hypercoagulable state Priority: Secondary Status: Chronic Prognosis: Fair Aware of Diagnosis: Patient Aware of Prognosis: Patient - Transfer Medications Prescriptions: OxyCODONE/APAP 5/325 [Percocet 5/325 MG] 1 tab PO Q6H PRN #25 tablet PRN Reason: postoperative pain Home Medications: Acetaminophen [Non-Aspirin] 325 mg PO BID PRN 09/12/17 [History] Albuterol Neb [Proventil Neb] 2.5 mg IH Q6HR 09/12/17 [History] Aspirin [Lo-Dose Aspirin EC] 81 mg PO DAILY 09/12/17 [History] Budesonide/Formoterol 160/4.5 [Symbicort 160/4.5] 2 puff IH BID 09/12/17 [ History] Carvedilol [Coreg] 6.25 mg PO BID 09/12/17 [History] Enoxaparin [Lovenox] 80 mg SQ Q12HR 09/12/17 [History] Gabapentin [Neurontin] 300 mg PO TID 09/12/17 [History] Ipratropium/Albuterol Neb [Duoneb] 3 ml IH Q6HR 09/12/17 [History] Lisinopril [Zestril] 40 mg PO DAILY 09/12/17 [History] Melatonin 9 mg PO HS 09/12/17 [History] Omeprazole [PriLOSEC] 20 mg PO DAILY 09/12/17 [History] Simvastatin [Zocor] 20 mg PO HS 09/12/17 [History] Temazepam [Restoril] 15 mg PO HS PRN 09/12/17 [History] hydroCHLOROthiazide [Hydrochlorothiazide] 25 mg PO DAILY 09/12/17 [History] OxyCODONE/APAP 5/325 [Percocet 5/325 MG] 1 tab PO Q6H PRN #25 tablet 09/16/17 [ Rx] Allergies/Adverse Reactions: 3 Allergy/AdvReac Type Severity Reaction Status Date / Time bee venom protein (honey bee) Allergy Swelling Verified 08/14/17 14:06 of Lip/Tongue/Throat - Respiratory Orders Smoking Cessation: Smoking cessation has been advised. For more information, call the [place] Tobacco Quit Line at 7-374-IOXP-NOW. - Ancillary Orders May use pressure relief devices daily prn, May go on RENATO w/family/respon green party w /meds at nurse discretion PRN, May have alcoholic beverages, May consult with Dentist, Experimental Rocket Sled Mechanic, Wire Strander PRN - Advance Directives Living Will: No Power of General Utility Worker: No Code Status: Full Code - Mobility Orders Chair (Increase activity per physical therapy recommendations) - Rehabiliation Orders Rehab Potential: Fair Rehab Orders: ROM Exercises, Evaluation for Physical Therapy, Evaluation for Occupational Therapy - Treatments Skin tear care topically daily PRN per policy, May check for fecal impaction rectally daily PRN, Fleet enema rectally every other day PRN cleansing purposes - Diet Orders Cardiac CERTIFICATION: I certify that the transfer of the above named patient to an Extended Care Facility is necessary for the continuing treatment of the diagnosis listed. The above information is true and accurate reflection of patient's current condition. Confidential - Redisclosure prohibited without a patient's written consent.
[2017-09-16] MEDS: Melatonin 3 MG TABLET PO SCH (19:56)
[2017-09-16] MEDS: Gentamicin Oint 15 GM TUBE TP SCH (19:56)
[2017-09-17] MEDS: Ipratropium/Albuterol Neb 3 ML IH SCH ×2 (03:54→10:16)
[2017-09-17] MEDS: *HR* OxyCODONE Immed Rel 5 MG TABLET PO PRN ×2 (04:25→09:31)
[2017-09-17] MEDS: *HR* Heparin 5,000 UNIT/ML VIAL SQ SCH (09:30)
[2017-09-17] MEDS: Gabapentin 300 MG CAPSULE PO SCH (09:30)
[2017-09-17] MEDS: Lisinopril 20 MG TABLET PO SCH (09:31)
[2017-09-17] MEDS: hydroCHLOROthiazide 25 MG TABLET PO SCH (09:31)
[2017-09-17] MEDS: Aspirin Enteric Coated 81 MG Tablet PO SCH (09:31)
[2017-09-17] MEDS: Budesonide/Formoterol 160/4.5 MDI IH SCH (10:54)
[2017-09-17 11:04] VITALS: BP 137/79
--- NOTE | 2017-09-17 11:30 | Vascular/[facility]as Progress Note ---
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 Left amputation wound is healing appropriately. Patient is medically stable and may be transferred to the [place] for further rehabilitation as an inpatient. - Subjective Interval history: No new complaints. Patient is now postoperative day #5 from a left above-the- knee amputation. Vital Signs, Last 4 Hours Temp Pulse Resp BP Pulse Ox 09/17/17 11:01 98.7 F 95 18 137/79 91 - Physical Examination General: Present: Conversant, No Apparent Distress, Well developed Neck: Absent: JVD Neuro: Present: Alert and responsive, No focal deficits noted, Cranial nerves grossly intact Vascular: Present: Amputation(s) (Left AKA is intact. Mild erythema around skin edges.) Abdomen: Present: Soft, Non-tender Skin: Present: No rashes noted on visualized skin Results 09/13/17 06:22 09/13/17 06:22 Consult Discharge Plan - Plan Additional Instructions: Daily dressing changes to left wihon-bpe-wfnj amputation. This is a dry to dry dressing. Patient may begin cleansing left zzvdv-csk-ecok with soap and water and pat dry beginning , September 18 Patient to follow up with Dr. Ayoub in vascular surgery clinic. Referrals: Panchito Ayoub MD [Partnered Physician] - 10/27/17 1:00 pm [facility] [Primary Care Provider[facility] - (PATIENT IS GOING TO [place] NO FOLLOW UP APPOINTMENT NEEDED) Prescriptions: OxyCODONE/APAP 5/325 [Percocet 5/325 MG] 1 tab PO Q6H PRN #25 tablet PRN Reason: postoperative pain
== END 2017-09-17 14:19 | DRG 240 ==
LOC: SAMDAY 11:41 → 2NNU 16:48
PROVIDERS: ADMIT Surgery; ATTEND Surgery